=== PATIENT | female | born 1960 | race Caucasian/White ===

== ENCOUNTER 2020-07-28 14:39 | Outpatient (REF) | payer MEDICAID, SELFPAY ==
[2020-07-28 14:58] LABS: COVID-19 Test Negative (Negative)
== END 2020-07-28 14:40 | disposition home or self-care (01) ==
LOC: HO.LAB 14:39
PROVIDERS: Visit Provider Internal Medicine
DX: Z20.822 Contact with and (suspected) exposure to COVID-19 (principal)
CPT/HCPCS: 36415; 87635; C9803

== ENCOUNTER 2020-10-05 12:56 | Outpatient (REF) | payer MEDICAID, SELFPAY ==
--- NOTE | ~2020-10-05 | MM_ITS ---
EXAMINATION: MM SCREENING DIGITAL BREAST TOMOSYNTHESIS, BILATERAL CLINICAL INFORMATION: Screening. Asymptomatic. No known family history breast cancer. The lifetime risk of breast cancer based on the Tyrer-Cuzick Model is 6%. COMPARISON: Mammography: 01/29/2006 TECHNIQUE: Digital breast tomosynthesis is performed in both the craniocaudal and mediolateral oblique views along with computer-aided detection (CAD). Synthesized 2D images are generated from the tomosynthesis. Additional left MLO view is provided. FINDINGS: There are scattered areas of fibroglandular density (ACR BI-RADS breast composition Category b). There are no significant masses, abnormal calcifications, or other abnormalities. The axilla and skin contours are unremarkable. Bilateral vascular calcifications. MM/MM tomosynthesis screening BI IMPRESSION: No mammographic evidence of malignancy. ASSESSMENT: BI-RADS 2: Benign RECOMMENDATION: Routine annual mammography screening. This patient's information was entered into a reminder system with a target due date for their next mammogram.
== END 2020-10-05 12:57 | disposition home or self-care (01) ==
LOC: HO.MAMMO 12:56
PROVIDERS: Visit Provider Internal Medicine
DX: Z12.31 Encounter for screening mammogram for malignant neoplasm of breast (principal)
CPT/HCPCS: 77063; 77067

== ENCOUNTER 2022-01-02 10:21 | Emergency (ER) | payer MEDICAID, SELFPAY ==
[2022-01-02 10:28] VITALS: BP 113/62; BP 139/108; PULSE 85; RESP 18; TEMP 36.9; O2SAT 98; BMI 19.1
--- NOTE | 2022-01-02 12:48 | ED_ITS ---
HPI - Altered Mental Status General Chief Complaint: Altered Mental Status <Oumar Trujillo MD - Last Filed: 01/02/22 15:38> Stated Complaint: AMS <Oumar Trujillo MD - Last Filed: 01/02/22 15:38> Time Seen by Provider: 01/02/22 10:34 <Oumar Trujillo MD - Last Filed: 01/02/22 15:38> Source: family and old records reviewed <Oumar Trujillo MD - Last Filed: 01/02/22 15:38> Mode of arrival: ambulatory <Oumar Trujillo MD - Last Filed: 01/02/22 15:38> Limitations: altered mental status <Oumar Trujillo MD - Last Filed: 01/02/22 15:38> History of Present Illness HPI narrative: 61-year-old female with a past medical history of dementia. Comes to the emergency department today with daughter due to increasing levels of agitation. Daughter states that she was at her day program and was brought here after they called her, stating increased levels of agitation. Daughter states that she is trying to get her into a ?facility?, but has not been able to do so yet. Daughter states that her mental status and actions today are not different than normal, but have been escalating over the past several weeks. HPI, review of systems, and physical exam may be limited secondary to the patient's altered mental status <Oumar Trujillo MD - Last Filed: 01/02/22 15:38> MD complaint: altered mental status and confusion <Oumar Trujillo MD - Last Filed: 01/02/22 15:38> Onset (ago): week(s) <Oumar Trujillo MD - Last Filed: 01/02/22 15:38> Timing confirmed by: family member <Oumar Trujillo MD - Last Filed: 01/02/22 15:38> Severity: severe <Oumar Trujillo MD - Last Filed: 01/02/22 15:38> Consistency of symptoms: getting Worse <Oumar Trujillo MD - Last Filed: 01/02/22 15:38> Context: other (Dementia) <Oumar Trujillo MD - Last Filed: 01/02/22 15:38> Associated symptoms: foul smelling urine <Oumar Trujillo MD - Last Filed: 01/02/22 15:38> Related Data Home Medications: Home Medications Medication Instructions Recorded Confirmed amlodipine 10 mg tablet 1 tab PO QAM 01/03/22 01/03/22 cyanocobalamin (vitamin B-12) 100 1 tab PO QAM 01/03/22 01/03/22 mcg tablet divalproex 250 mg tablet,delayed 1 tab PO BID 01/03/22 01/03/22 release docusate sodium 100 mg capsule 1 cap PO BID 01/03/22 01/03/22 risperidone 0.5 mg tablet 1 tab PO BID 01/03/22 01/03/22 <Oumar Trujillo MD - Last Filed: 01/02/22 15:38> Allergies/Adverse Reactions: Allergies Allergy/AdvReac Type Severity Reaction Status Date / Time aspirin [ASA] Allergy Intermediate HIVES Unverified 12/10/19 16:37 penicillin G Allergy Unknown rash Verified 04/01/19 00:00 penicillin V Allergy Unknown rash Verified 11/10/14 00:00 Penicillins Allergy Unknown RASH Unverified 12/10/19 16:37 <Oumar Trujillo MD - Last Filed: 01/02/22 15:38> Review of Systems Review of Systems: Yes Unobtainable due to mental condition and Unobtainable due to mental status <Oumar Trujillo MD - Last Filed: 01/02/22 15:38> Neurologic: Reports confusion <Oumar Trujillo MD - Last Filed: 01/02/22 15:38> Psychiatric: Psychiatric: Reports confusion <Oumar Trujillo MD - Last Filed: 01/02/22 15:38> [facility] Past Medical History [facility] Narrative: Daughter states history of dementia, no other significant past medical history <Oumar Trujillo MD - Last Filed: 01/02/22 15:38> Source: old records reviewed and obtained from family <Oumar Trujillo MD - Last Filed: 01/02/22 15:38> Social History Social History: Social History Advance Directives: Yes Advance Directives on File: Yes Advance Directives Date on File: 01/03/22 <Oumar Trujillo MD - Last Filed: 01/02/22 15:38> Physical Exam ED Vital Signs: Vital Signs - 24 hr 01/05/22 10:56 01/05/22 21:19 01/05/22 23:26 Temperature 97.8 F Pulse Rate 62 106 H Respiratory Rate 16 14 Blood Pressure 136/70 133/64 73/49 L Pulse Oximetry 99 100 Oxygen Delivery Method Room Air Room Air 01/05/22 23:32 01/05/22 23:37 01/06/22 01:14 Temperature Pulse Rate 81 79 73 Respiratory Rate 14 14 12 Blood Pressure 95/59 L 97/61 107/56 L Pulse Oximetry 98 99 99 Oxygen Delivery Method Room Air Room Air Room Air 01/06/22 02:24 01/06/22 03:16 01/06/22 05:21 Temperature 97.0 F Pulse Rate 79 75 90 Respiratory Rate 12 14 Blood Pressure 133/58 L 136/63 122/71 Pulse Oximetry 98 100 Oxygen Delivery Method Room Air Room Air 01/06/22 08:22 Temperature 97.2 F Pulse Rate 56 Respiratory Rate 13 Blood Pressure 103/68 Pulse Oximetry 97 Oxygen Delivery Method Room Air BMI result Body Mass Index 19.1 <Oumar Trujillo MD - Last Filed: 01/02/22 15:38> Vital Signs - 24 hr 01/05/22 10:56 01/05/22 21:19 01/05/22 23:26 Temperature 97.8 F Pulse Rate 62 106 H Respiratory Rate 16 14 Blood Pressure 136/70 133/64 73/49 L Pulse Oximetry 99 100 Oxygen Delivery Method Room Air Room Air 01/05/22 23:32 01/05/22 23:37 01/06/22 01:14 Temperature Pulse Rate 81 79 73 Respiratory Rate 14 14 12 Blood Pressure 95/59 L 97/61 107/56 L Pulse Oximetry 98 99 99 Oxygen Delivery Method Room Air Room Air Room Air 01/06/22 02:24 01/06/22 03:16 01/06/22 05:21 Temperature 97.0 F Pulse Rate 79 75 90 Respiratory Rate 12 14 Blood Pressure 133/58 L 136/63 122/71 Pulse Oximetry 98 100 Oxygen Delivery Method Room Air Room Air 01/06/22 08:22 Temperature 97.2 F Pulse Rate 56 Respiratory Rate 13 Blood Pressure 103/68 Pulse Oximetry 97 Oxygen Delivery Method Room Air BMI result Body Mass Index 19.1 <NIKHIL Hodges - Last Filed: 01/03/22 09:22> Vital Signs - 24 hr 01/05/22 10:56 01/05/22 21:19 01/05/22 23:26 Temperature 97.8 F Pulse Rate 62 106 H Respiratory Rate 16 14 Blood Pressure 136/70 133/64 73/49 L Pulse Oximetry 99 100 Oxygen Delivery Method Room Air Room Air 01/05/22 23:32 01/05/22 23:37 01/06/22 01:14 Temperature Pulse Rate 81 79 73 Respiratory Rate 14 14 12 Blood Pressure 95/59 L 97/61 107/56 L Pulse Oximetry 98 99 99 Oxygen Delivery Method Room Air Room Air Room Air 01/06/22 02:24 01/06/22 03:16 01/06/22 05:21 Temperature 97.0 F Pulse Rate 79 75 90 Respiratory Rate 12 14 Blood Pressure 133/58 L 136/63 122/71 Pulse Oximetry 98 100 Oxygen Delivery Method Room Air Room Air 01/06/22 08:22 Temperature 97.2 F Pulse Rate 56 Respiratory Rate 13 Blood Pressure 103/68 Pulse Oximetry 97 Oxygen Delivery Method Room Air BMI result Body Mass Index 19.1 <NIKHIL Boyer - Last Filed: 01/05/22 18:26> Vital Signs - 24 hr 01/05/22 10:56 01/05/22 21:19 01/05/22 23:26 Temperature 97.8 F Pulse Rate 62 106 H Respiratory Rate 16 14 Blood Pressure 136/70 133/64 73/49 L Pulse Oximetry 99 100 Oxygen Delivery Method Room Air Room Air 01/05/22 23:32 01/05/22 23:37 01/06/22 01:14 Temperature Pulse Rate 81 79 73 Respiratory Rate 14 14 12 Blood Pressure 95/59 L 97/61 107/56 L Pulse Oximetry 98 99 99 Oxygen Delivery Method Room Air Room Air Room Air 01/06/22 02:24 01/06/22 03:16 01/06/22 05:21 Temperature 97.0 F Pulse Rate 79 75 90 Respiratory Rate 12 14 Blood Pressure 133/58 L 136/63 122/71 Pulse Oximetry 98 100 Oxygen Delivery Method Room Air Room Air 01/06/22 08:22 Temperature 97.2 F Pulse Rate 56 Respiratory Rate 13 Blood Pressure 103/68 Pulse Oximetry 97 Oxygen Delivery Method Room Air BMI result Body Mass Index 19.1 <NIKHIL Rosado - Last Filed: 01/06/22 09:15> Const General: combative and confusion <Oumar Trujillo MD - Last Filed: 01/02/22 15:38> Nutritional Appearance: underweight <Oumar Trujillo MD - Last Filed: 01/02/22 15:38> Orientation/consciousness: confusion <Oumar Trujillo MD - Last Filed: 01/02/22 15:38> HENMT Head: Yes normal to inspection, Yes normocephalic and Yes atraumatic <Oumar Trujillo MD - Last Filed: 01/02/22 15:38> Ears: hearing grossly normal bilaterally <Oumar Trujillo MD - Last Filed: 01/02/22 15:38> General nose exam: Normal external nose present <Oumar Trujillo MD - Last Filed: 01/02/22 15:38> Face and sinus: Yes normal facial exam <Oumar Trujillo MD - Last Filed: 01/02/22 15:38> Mouth: Normal oral and palatal mucosa present <Oumar Trujillo MD - Last Filed: 01/02/22 15:38> Eyes Conjunctivae: conjunctivae normal <Oumar Trujillo MD - Last Filed: 01/02/22 15:38> Sclerae: sclerae normal <Oumar Trujillo MD - Last Filed: 01/02/22 15:38> Neck Neck: Yes normal visual inspection and Yes full ROM <Oumar Trujillo MD - Last Filed: 01/02/22 15:38> Resp Other: Unable to evaluate sufficiently because of agitation <Oumar Trujillo MD - Last Filed: 01/02/22 15:38> Effort & Inspection: normal respiratory effort, no cough and no stridor <Oumar Trujillo MD - Last Filed: 01/02/22 15:38> Cardio Other: Unable to evaluate sufficiently because of agitation <Oumar Trujillo MD - Last Filed: 01/02/22 15:38> Rate: regular rate <Oumar Trujillo MD - Last Filed: 01/02/22 15:38> Back/Spine/Pelvis Cervical Spine: cervical ROM normal <Oumar Trujillo MD - Last Filed: 01/02/22 15:38> Thoracic/Lumbar Spine: thoracic and lumbar spine normal to inspection <Oumar Trujillo MD - Last Filed: 01/02/22 15:38> Skin General skin exam: no rashes or lesions noted and dry skin <Oumar Trujillo MD - Last Filed: 01/02/22 15:38> Neuro General: confusion <Oumar Trujillo MD - Last Filed: 01/02/22 15:38> Extrem General: Yes normal to inspection <Oumar Trujillo MD - Last Filed: 01/02/22 15:38> Psych Appearance: grossly normal <Oumar Trujillo MD - Last Filed: 01/02/22 15:38> Mental Status: other <Oumar Trujillo MD - Last Filed: 01/02/22 15:38> Speech and movement: Psychomotor agitation in speech present; No Restless speech present <Oumar Trujillo MD - Last Filed: 01/02/22 15:38> Course Reevaluation(s) Reevaluation #1: Patient was given some IM Zyprexa to help with agitation, which seems to now have improved. <Oumar Trujillo MD - Last Filed: 01/02/22 15:38> Time: 15:32 <Oumar Trujillo MD - Last Filed: 01/02/22 15:38> Reevaluation #2: 01/03/2022921 Patient currently awaiting CM placement. Unable to obtain urine sample still. <NIKHIL Hodges - Last Filed: 01/03/22 09:22> Reevaluation #3: Physician observation continued. Patient stable. Patient vital signs stable <NIKHIL Boyer - Last Filed: 01/05/22 18:26> Time: 18:26 <NIKHIL Boyer - Last Filed: 01/05/22 18:26> Additional Reevaluation(s): 01/06/22--15--physician observation continued. Vital signs stable, no complaints overnight. Labs reviewed. Patient currently with UTI on Ceftin. Pending case management placement <NIKHIL Rosado - Last Filed: 01/06/22 09:15> MDM - Altered Mental Status MDM Narrative Medical decision making narrative: 61-year-old female with a past medical history of dementia presents with daughter with progressively worsening symptoms. Daughter states over the past several weeks things have become worse. There does not seem to be in acute trigger. Patient's vital signs are normal. unable to obtain urine specimen at this time. Will obtain Case Management evaluation to assist the family with p lacement, which seems to be the main issue today. <Oumar Trujillo MD - Last Filed: 01/02/22 15:38> Differential Diagnosis Differential diagnosis: Likely altered mental status and dementia <Oumar Trujillo MD - Last Filed: 01/02/22 15:38> Lab Data Result diagrams: : 01/03/22 10:03 01/03/22 10:03 <Oumar Trujillo MD - Last Filed: 01/02/22 15:38> Labs: Lab Results 01/03/22 01/03/22 01/03/22 Range/Units 09:13 10:03 10:03 WBC 4.9 (4.8-10.8) X10*3/uL RBC 3.83 L (4.20-5.50) X10*6/uL Hgb 11.6 L (12.0-16.0) g/dl Hct 34.2 L (37.0-47.0) % MCV 89.3 (80.0-98.0) fL MCH 30.3 (27.0-33.0) pg MCHC 33.9 (31.0-35.0) g/dl RDW 12.7 (11.0-16.0) % Plt Count 121 L (160-400) X10*3/uL MPV 10.9 (9.4-12.3) fL Immature Gran % (Auto) 0.2 (0.0-0.4) % Neut % (Auto) 66.8 (45-73) % Lymph % (Auto) 21.3 (20-40) % [place] % (Auto) 10.7 (2-11) % Eos % (Auto) 0.6 (0-4) % Baso % (Auto) 0.4 (0-2) % Lymph # (Auto) 1.1 L (1.2-4.9) X10*3/uL [place] # (Auto) 0.5 (0.1-1.2) X10*3/uL Eos # (Auto) 0.0 (0.0-0.4) X10*3/uL Baso # (Auto) 0.0 (0.0-0.2) X10*3/uL Abs Immat Gran (auto) 0.01 (0.00-0.03) X10*3/uL Absolute Neuts (auto) 3.3 (2.0-8.3) x10*3/uL Absolute Nucleated RBC 0.000 (0.0-0.012) X10*3/uL Nucleated RBC % (auto) 0.0 (0.0-0.2) /100WBC Sodium 144 (135-145) mmol/L Potassium 3.7 (3.3-5.1) mmol/L Chloride 109 H (96-108) mmol/L Carbon Dioxide 24 (22-29) mmol/L Anion Gap 15 (12-20) BUN 21 H (9-16) mg/dL Creatinine 0.67 (0.5-1.4) mg/dL Estim Creat Clear Calc 59.2 Estimated GFR > 60 Random Glucose 97 (60-115) mg/dL Calcium 9.2 (8.4-10.2) mg/dL Magnesium 1.8 (1.6-2.6) mg/dL Total Bilirubin 1.0 (0.0-1.0) mg/dL AST 31 (5-31) U/L ALT 21 (0-31) U/L Alkaline Phosphatase 63 (39-117) U/L Total Protein 5.7 L (6.5-8.0) g/dL Albumin 3.6 (3.5-5.0) g/dL Urine Color Urine Appearance Urine pH (5.0-9.0) Ur Specific [place] (1.005-1.025) Urine Protein (Neg-Trace) mg/dL Urine Glucose (UA) (Negative) mg/dL Urine Ketones (Negative) mg/dL Urine Blood (Negative) Urine Nitrite (Negative) Ur Leukocyte Esterase (Negative) Urine RBC (0-2) /HPF Urine WBC (0-5) /HPF Ur Squamous Epith Cells (0-2) /HPF Urine Bacteria (None Seen) Hyaline Casts (0-2) /LPF Granular Casts COVID-19 (TEJAL) Negative (Negative) COVID-19 Clin Com See Note 01/04/22 Range/Units 17:34 WBC (4.8-10.8) X10*3/uL RBC (4.20-5.50) X10*6/uL Hgb (12.0-16.0) g/dl Hct (37.0-47.0) % MCV (80.0-98.0) fL MCH (27.0-33.0) pg MCHC (31.0-35.0) g/dl RDW (11.0-16.0) % Plt Count (160-400) X10*3/uL MPV (9.4-12.3) fL Immature Gran % (Auto) (0.0-0.4) % Neut % (Auto) (45-73) % Lymph % (Auto) (20-40) % [place] % (Auto) (2-11) % Eos % (Auto) (0-4) % Baso % (Auto) (0-2) % Lymph # (Auto) (1.2-4.9) X10*3/uL [place] # (Auto) (0.1-1.2) X10*3/uL Eos # (Auto) (0.0-0.4) X10*3/uL Baso # (Auto) (0.0-0.2) X10*3/uL Abs Immat Gran (auto) (0.00-0.03) X10*3/uL Absolute Neuts (auto) (2.0-8.3) x10*3/uL Absolute Nucleated RBC (0.0-0.012) X10*3/uL Nucleated RBC % (auto) (0.0-0.2) /100WBC Sodium (135-145) mmol/L Potassium (3.3-5.1) mmol/L Chloride (96-108) mmol/L Carbon Dioxide (22-29) mmol/L Anion Gap (12-20) BUN (9-16) mg/dL Creatinine (0.5-1.4) mg/dL Estim Creat Clear Calc Estimated GFR Random Glucose (60-115) mg/dL Calcium (8.4-10.2) mg/dL Magnesium (1.6-2.6) mg/dL Total Bilirubin (0.0-1.0) mg/dL AST (5-31) U/L ALT (0-31) U/L Alkaline Phosphatase (39-117) U/L Total Protein (6.5-8.0) g/dL Albumin (3.5-5.0) g/dL Urine Color ORANGE Urine Appearance Clear Urine pH 5.5 (5.0-9.0) Ur Specific [place] 1.025 (1.005-1.025) Urine Protein 30 (1+) H (Neg-Trace) mg/dL Urine Glucose (UA) Negative (Negative) mg/dL Urine Ketones 40 (Negative) mg/dL Urine Blood Negative (Negative) Urine Nitrite Positive H (Negative) Ur Leukocyte Esterase Trace H (Negative) Urine RBC 0-2 (0-2) /HPF Urine WBC 6-10 H (0-5) /HPF Ur Squamous Epith Cells 0-2 (0-2) /HPF Urine Bacteria 3+ (None Seen) Hyaline Casts 0-2 (0-2) /LPF Granular Casts Present COVID-19 (TEJAL) (Negative) COVID-19 Clin Com <Oumar Trujillo MD - Last Filed: 01/02/22 15:38> Lab Results 01/03/22 01/03/22 01/03/22 Range/Units 09:13 10:03 10:03 WBC 4.9 (4.8-10.8) X10*3/uL RBC 3.83 L (4.20-5.50) X10*6/uL Hgb 11.6 L (12.0-16.0) g/dl Hct 34.2 L (37.0-47.0) % MCV 89.3 (80.0-98.0) fL MCH 30.3 (27.0-33.0) pg MCHC 33.9 (31.0-35.0) g/dl RDW 12.7 (11.0-16.0) % Plt Count 121 L (160-400) X10*3/uL MPV 10.9 (9.4-12.3) fL Immature Gran % (Auto) 0.2 (0.0-0.4) % Neut % (Auto) 66.8 (45-73) % Lymph % (Auto) 21.3 (20-40) % [place] % (Auto) 10.7 (2-11) % Eos % (Auto) 0.6 (0-4) % Baso % (Auto) 0.4 (0-2) % Lymph # (Auto) 1.1 L (1.2-4.9) X10*3/uL [place] # (Auto) 0.5 (0.1-1.2) X10*3/uL Eos # (Auto) 0.0 (0.0-0.4) X10*3/uL Baso # (Auto) 0.0 (0.0-0.2) X10*3/uL Abs Immat Gran (auto) 0.01 (0.00-0.03) X10*3/uL Absolute Neuts (auto) 3.3 (2.0-8.3) x10*3/uL Absolute Nucleated RBC 0.000 (0.0-0.012) X10*3/uL Nucleated RBC % (auto) 0.0 (0.0-0.2) /100WBC Sodium 144 (135-145) mmol/L Potassium 3.7 (3.3-5.1) mmol/L Chloride 109 H (96-108) mmol/L Carbon Dioxide 24 (22-29) mmol/L Anion Gap 15 (12-20) BUN 21 H (9-16) mg/dL Creatinine 0.67 (0.5-1.4) mg/dL Estim Creat Clear Calc 59.2 Estimated GFR > 60 Random Glucose 97 (60-115) mg/dL Calcium 9.2 (8.4-10.2) mg/dL Magnesium 1.8 (1.6-2.6) mg/dL Total Bilirubin 1.0 (0.0-1.0) mg/dL AST 31 (5-31) U/L ALT 21 (0-31) U/L Alkaline Phosphatase 63 (39-117) U/L Total Protein 5.7 L (6.5-8.0) g/dL Albumin 3.6 (3.5-5.0) g/dL Urine Color Urine Appearance Urine pH (5.0-9.0) Ur Specific [place] (1.005-1.025) Urine Protein (Neg-Trace) mg/dL Urine Glucose (UA) (Negative) mg/dL Urine Ketones (Negative) mg/dL Urine Blood (Negative) Urine Nitrite (Negative) Ur Leukocyte Esterase (Negative) Urine RBC (0-2) /HPF Urine WBC (0-5) /HPF Ur Squamous Epith Cells (0-2) /HPF Urine Bacteria (None Seen) Hyaline Casts (0-2) /LPF Granular Casts COVID-19 (TEJAL) Negative (Negative) COVID-19 Clin Com See Note 01/04/22 Range/Units 17:34 WBC (4.8-10.8) X10*3/uL RBC (4.20-5.50) X10*6/uL Hgb (12.0-16.0) g/dl Hct (37.0-47.0) % MCV (80.0-98.0) fL MCH (27.0-33.0) pg MCHC (31.0-35.0) g/dl RDW (11.0-16.0) % Plt Count (160-400) X10*3/uL MPV (9.4-12.3) fL Immature Gran % (Auto) (0.0-0.4) % Neut % (Auto) (45-73) % Lymph % (Auto) (20-40) % [place] % (Auto) (2-11) % Eos % (Auto) (0-4) % Baso % (Auto) (0-2) % Lymph # (Auto) (1.2-4.9) X10*3/uL [place] # (Auto) (0.1-1.2) X10*3/uL Eos # (Auto) (0.0-0.4) X10*3/uL Baso # (Auto) (0.0-0.2) X10*3/uL Abs Immat Gran (auto) (0.00-0.03) X10*3/uL Absolute Neuts (auto) (2.0-8.3) x10*3/uL Absolute Nucleated RBC (0.0-0.012) X10*3/uL Nucleated RBC % (auto) (0.0-0.2) /100WBC Sodium (135-145) mmol/L Potassium (3.3-5.1) mmol/L Chloride (96-108) mmol/L Carbon Dioxide (22-29) mmol/L Anion Gap (12-20) BUN (9-16) mg/dL Creatinine (0.5-1.4) mg/dL Estim Creat Clear Calc Estimated GFR Random Glucose (60-115) mg/dL Calcium (8.4-10.2) mg/dL Magnesium (1.6-2.6) mg/dL Total Bilirubin (0.0-1.0) mg/dL AST (5-31) U/L ALT (0-31) U/L Alkaline Phosphatase (39-117) U/L Total Protein (6.5-8.0) g/dL Albumin (3.5-5.0) g/dL Urine Color ORANGE Urine Appearance Clear Urine pH 5.5 (5.0-9.0) Ur Specific [place] 1.025 (1.005-1.025) Urine Protein 30 (1+) H (Neg-Trace) mg/dL Urine Glucose (UA) Negative (Negative) mg/dL Urine Ketones 40 (Negative) mg/dL Urine Blood Negative (Negative) Urine Nitrite Positive H (Negative) Ur Leukocyte Esterase Trace H (Negative) Urine RBC 0-2 (0-2) /HPF Urine WBC 6-10 H (0-5) /HPF Ur Squamous Epith Cells 0-2 (0-2) /HPF Urine Bacteria 3+ (None Seen) Hyaline Casts 0-2 (0-2) /LPF Granular Casts Present COVID-19 (TEJAL) (Negative) COVID-19 Clin Com <NIKHIL Hodges - Last Filed: 01/03/22 09:22> Lab Results 01/03/22 01/03/22 01/03/22 Range/Units 09:13 10:03 10:03 WBC 4.9 (4.8-10.8) X10*3/uL RBC 3.83 L (4.20-5.50) X10*6/uL Hgb 11.6 L (12.0-16.0) g/dl Hct 34.2 L (37.0-47.0) % MCV 89.3 (80.0-98.0) fL MCH 30.3 (27.0-33.0) pg MCHC 33.9 (31.0-35.0) g/dl RDW 12.7 (11.0-16.0) % Plt Count 121 L (160-400) X10*3/uL MPV 10.9 (9.4-12.3) fL Immature Gran % (Auto) 0.2 (0.0-0.4) % Neut % (Auto) 66.8 (45-73) % Lymph % (Auto) 21.3 (20-40) % [place] % (Auto) 10.7 (2-11) % Eos % (Auto) 0.6 (0-4) % Baso % (Auto) 0.4 (0-2) % Lymph # (Auto) 1.1 L (1.2-4.9) X10*3/uL [place] # (Auto) 0.5 (0.1-1.2) X10*3/uL Eos # (Auto) 0.0 (0.0-0.4) X10*3/uL Baso # (Auto) 0.0 (0.0-0.2) X10*3/uL Abs Immat Gran (auto) 0.01 (0.00-0.03) X10*3/uL Absolute Neuts (auto) 3.3 (2.0-8.3) x10*3/uL Absolute Nucleated RBC 0.000 (0.0-0.012) X10*3/uL Nucleated RBC % (auto) 0.0 (0.0-0.2) /100WBC Sodium 144 (135-145) mmol/L Potassium 3.7 (3.3-5.1) mmol/L Chloride 109 H (96-108) mmol/L Carbon Dioxide 24 (22-29) mmol/L Anion Gap 15 (12-20) BUN 21 H (9-16) mg/dL Creatinine 0.67 (0.5-1.4) mg/dL Estim Creat Clear Calc 59.2 Estimated GFR > 60 Random Glucose 97 (60-115) mg/dL Calcium 9.2 (8.4-10.2) mg/dL Magnesium 1.8 (1.6-2.6) mg/dL Total Bilirubin 1.0 (0.0-1.0) mg/dL AST 31 (5-31) U/L ALT 21 (0-31) U/L Alkaline Phosphatase 63 (39-117) U/L Total Protein 5.7 L (6.5-8.0) g/dL Albumin 3.6 (3.5-5.0) g/dL Urine Color Urine Appearance Urine pH (5.0-9.0) Ur Specific [place] (1.005-1.025) Urine Protein (Neg-Trace) mg/dL Urine Glucose (UA) (Negative) mg/dL Urine Ketones (Negative) mg/dL Urine Blood (Negative) Urine Nitrite (Negative) Ur Leukocyte Esterase (Negative) Urine RBC (0-2) /HPF Urine WBC (0-5) /HPF Ur Squamous Epith Cells (0-2) /HPF Urine Bacteria (None Seen) Hyaline Casts (0-2) /LPF Granular Casts COVID-19 (TEJAL) Negative (Negative) COVID-19 Clin Com See Note 01/04/22 Range/Units 17:34 WBC (4.8-10.8) X10*3/uL RBC (4.20-5.50) X10*6/uL Hgb (12.0-16.0) g/dl Hct (37.0-47.0) % MCV (80.0-98.0) fL MCH (27.0-33.0) pg MCHC (31.0-35.0) g/dl RDW (11.0-16.0) % Plt Count (160-400) X10*3/uL MPV (9.4-12.3) fL Immature Gran % (Auto) (0.0-0.4) % Neut % (Auto) (45-73) % Lymph % (Auto) (20-40) % [place] % (Auto) (2-11) % Eos % (Auto) (0-4) % Baso % (Auto) (0-2) % Lymph # (Auto) (1.2-4.9) X10*3/uL [place] # (Auto) (0.1-1.2) X10*3/uL Eos # (Auto) (0.0-0.4) X10*3/uL Baso # (Auto) (0.0-0.2) X10*3/uL Abs Immat Gran (auto) (0.00-0.03) X10*3/uL Absolute Neuts (auto) (2.0-8.3) x10*3/uL Absolute Nucleated RBC (0.0-0.012) X10*3/uL Nucleated RBC % (auto) (0.0-0.2) /100WBC Sodium (135-145) mmol/L Potassium (3.3-5.1) mmol/L Chloride (96-108) mmol/L Carbon Dioxide (22-29) mmol/L Anion Gap (12-20) BUN (9-16) mg/dL Creatinine (0.5-1.4) mg/dL Estim Creat Clear Calc Estimated GFR Random Glucose (60-115) mg/dL Calcium (8.4-10.2) mg/dL Magnesium (1.6-2.6) mg/dL Total Bilirubin (0.0-1.0) mg/dL AST (5-31) U/L ALT (0-31) U/L Alkaline Phosphatase (39-117) U/L Total Protein (6.5-8.0) g/dL Albumin (3.5-5.0) g/dL Urine Color ORANGE Urine Appearance Clear Urine pH 5.5 (5.0-9.0) Ur Specific [place] 1.025 (1.005-1.025) Urine Protein 30 (1+) H (Neg-Trace) mg/dL Urine Glucose (UA) Negative (Negative) mg/dL Urine Ketones 40 (Negative) mg/dL Urine Blood Negative (Negative) Urine Nitrite Positive H (Negative) Ur Leukocyte Esterase Trace H (Negative) Urine RBC 0-2 (0-2) /HPF Urine WBC 6-10 H (0-5) /HPF Ur Squamous Epith Cells 0-2 (0-2) /HPF Urine Bacteria 3+ (None Seen) Hyaline Casts 0-2 (0-2) /LPF Granular Casts Present COVID-19 (TEJAL) (Negative) COVID-19 Clin Com <NIKHIL Boyer - Last Filed: 01/05/22 18:26> Lab Results 01/03/22 01/03/22 01/03/22 Range/Units 09:13 10:03 10:03 WBC 4.9 (4.8-10.8) X10*3/uL RBC 3.83 L (4.20-5.50) X10*6/uL Hgb 11.6 L (12.0-16.0) g/dl Hct 34.2 L (37.0-47.0) % MCV 89.3 (80.0-98.0) fL MCH 30.3 (27.0-33.0) pg MCHC 33.9 (31.0-35.0) g/dl RDW 12.7 (11.0-16.0) % Plt Count 121 L (160-400) X10*3/uL MPV 10.9 (9.4-12.3) fL Immature Gran % (Auto) 0.2 (0.0-0.4) % Neut % (Auto) 66.8 (45-73) % Lymph % (Auto) 21.3 (20-40) % [place] % (Auto) 10.7 (2-11) % Eos % (Auto) 0.6 (0-4) % Baso % (Auto) 0.4 (0-2) % Lymph # (Auto) 1.1 L (1.2-4.9) X10*3/uL [place] # (Auto) 0.5 (0.1-1.2) X10*3/uL Eos # (Auto) 0.0 (0.0-0.4) X10*3/uL Baso # (Auto) 0.0 (0.0-0.2) X10*3/uL Abs Immat Gran (auto) 0.01 (0.00-0.03) X10*3/uL Absolute Neuts (auto) 3.3 (2.0-8.3) x10*3/uL Absolute Nucleated RBC 0.000 (0.0-0.012) X10*3/uL Nucleated RBC % (auto) 0.0 (0.0-0.2) /100WBC Sodium 144 (135-145) mmol/L Potassium 3.7 (3.3-5.1) mmol/L Chloride 109 H (96-108) mmol/L Carbon Dioxide 24 (22-29) mmol/L Anion Gap 15 (12-20) BUN 21 H (9-16) mg/dL Creatinine 0.67 (0.5-1.4) mg/dL Estim Creat Clear Calc 59.2 Estimated GFR > 60 Random Glucose 97 (60-115) mg/dL Calcium 9.2 (8.4-10.2) mg/dL Magnesium 1.8 (1.6-2.6) mg/dL Total Bilirubin 1.0 (0.0-1.0) mg/dL AST 31 (5-31) U/L ALT 21 (0-31) U/L Alkaline Phosphatase 63 (39-117) U/L Total Protein 5.7 L (6.5-8.0) g/dL Albumin 3.6 (3.5-5.0) g/dL Urine Color Urine Appearance Urine pH (5.0-9.0) Ur Specific [place] (1.005-1.025) Urine Protein (Neg-Trace) mg/dL Urine Glucose (UA) (Negative) mg/dL Urine Ketones (Negative) mg/dL Urine Blood (Negative) Urine Nitrite (Negative) Ur Leukocyte Esterase (Negative) Urine RBC (0-2) /HPF Urine WBC (0-5) /HPF Ur Squamous Epith Cells (0-2) /HPF Urine Bacteria (None Seen) Hyaline Casts (0-2) /LPF Granular Casts COVID-19 (TEJAL) Negative (Negative) COVID-19 Clin Com See Note 01/04/22 Range/Units 17:34 WBC (4.8-10.8) X10*3/uL RBC (4.20-5.50) X10*6/uL Hgb (12.0-16.0) g/dl Hct (37.0-47.0) % MCV (80.0-98.0) fL MCH (27.0-33.0) pg MCHC (31.0-35.0) g/dl RDW (11.0-16.0) % Plt Count (160-400) X10*3/uL MPV (9.4-12.3) fL Immature Gran % (Auto) (0.0-0.4) % Neut % (Auto) (45-73) % Lymph % (Auto) (20-40) % [place] % (Auto) (2-11) % Eos % (Auto) (0-4) % Baso % (Auto) (0-2) % Lymph # (Auto) (1.2-4.9) X10*3/uL [place] # (Auto) (0.1-1.2) X10*3/uL Eos # (Auto) (0.0-0.4) X10*3/uL Baso # (Auto) (0.0-0.2) X10*3/uL Abs Immat Gran (auto) (0.00-0.03) X10*3/uL Absolute Neuts (auto) (2.0-8.3) x10*3/uL Absolute Nucleated RBC (0.0-0.012) X10*3/uL Nucleated RBC % (auto) (0.0-0.2) /100WBC Sodium (135-145) mmol/L Potassium (3.3-5.1) mmol/L Chloride (96-108) mmol/L Carbon Dioxide (22-29) mmol/L Anion Gap (12-20) BUN (9-16) mg/dL Creatinine (0.5-1.4) mg/dL Estim Creat Clear Calc Estimated GFR Random Glucose (60-115) mg/dL Calcium (8.4-10.2) mg/dL Magnesium (1.6-2.6) mg/dL Total Bilirubin (0.0-1.0) mg/dL AST (5-31) U/L ALT (0-31) U/L Alkaline Phosphatase (39-117) U/L Total Protein (6.5-8.0) g/dL Albumin (3.5-5.0) g/dL Urine Color ORANGE Urine Appearance Clear Urine pH 5.5 (5.0-9.0) Ur Specific [place] 1.025 (1.005-1.025) Urine Protein 30 (1+) H (Neg-Trace) mg/dL Urine Glucose (UA) Negative (Negative) mg/dL Urine Ketones 40 (Negative) mg/dL Urine Blood Negative (Negative) Urine Nitrite Positive H (Negative) Ur Leukocyte Esterase Trace H (Negative) Urine RBC 0-2 (0-2) /HPF Urine WBC 6-10 H (0-5) /HPF Ur Squamous Epith Cells 0-2 (0-2) /HPF Urine Bacteria 3+ (None Seen) Hyaline Casts 0-2 (0-2) /LPF Granular Casts Present COVID-19 (TEJAL) (Negative) COVID-19 Clin Com <NIKHIL Rosado - Last Filed: 01/06/22 09:15> Discharge Plan Discharge Clinical Impression: Altered mental status, Dementia <Oumar Trujillo MD - Last Filed: 01/02/22 15:38> Instructions: Dementia (ED) <Oumar Trujillo MD - Last Filed: 01/02/22 15:38> Prescriptions: No Action cyanocobalamin (vitamin B-12) 100 mcg tablet 1 tab PO QAM divalproex 250 mg tablet,delayed release (DR/EC) 1 tab PO BID amlodipine 10 mg tablet 1 tab PO QAM docusate sodium 100 mg capsule 1 cap PO BID risperidone 0.5 mg tablet 1 tab PO BID <Oumar Trujillo MD - Last Filed: 01/02/22 15:38> Referrals: Janessa Zepeda MD [Primary Care Provider] - 1 Week <Oumar Trujillo MD - Last Filed: 01/02/22 15:38>
[2022-01-02] MEDS: OLANZapine 10 MG VIAL 2.5 MG IM (14:03)
[2022-01-02] MEDS: LORazepam 1 MG TABLET PO (19:22)
[2022-01-02] MEDS: diphenhydrAMINE HCL 50 MG/ML VIAL IM (20:44)
[2022-01-02] MEDS: Ziprasidone Mesylate 20 MG VIAL 10 MG IM (20:45)
--- NOTE | 2022-01-02 20:56 | PC.NURSE ---
Patient is restless, agitated, attempting to leave room, unable to redirect patient at this time. Geodon 10 mg IM and Benadryl IM administered per Dr. Lowery order. Patient noted to present with calm behavior, asked for the pillow, stated she would like to sleep after the injections. RR 18, even, unlabored, no s/s of distress noted. Patient refused vital signs check.
--- NOTE | 2022-01-02 21:55 | PC.NURSE ---
Patient is resting with her eyes closed, RR 16, no s/s of distress noted.
[2022-01-02 22:17] VITALS: RESP 18
[2022-01-03] VITALS (7 sets, daily range): BP systolic 119–120; BP diastolic 63–65; PULSE 48–73; RESP 14–24; TEMP 36.4; O2SAT 99–100
[2022-01-03 09:40] LABS: COVID-19 Test Negative (Negative)
--- NOTE | 2022-01-03 09:51 | PHA.MEDREC ---
Pharmacy Consult ? Medication Reconciliation Pharmacy has completed the medication reconciliation. Spoke to patients daughter Louise.
[2022-01-03 10:07] LABS: MANUAL DIFF FLAG NO
[2022-01-03 10:27] LABS: Alanine Aminotransferase 21 U/L (0-31); Albumin Level 3.6 g/dL (3.5-5.0); Alkaline Phosphatase 63 U/L (39-117); Anion Gap 15 (12-20); Aspartate Amino Transferase 31 U/L (5-31); Blood Urea Nitrogen 21 mg/dL (9-16); Calcium 9.2 mg/dL (8.4-10.2); Carbon Dioxide 24 mmol/L (22-29); Chloride 109 mmol/L (96-108); Creatinine Clr Calc Pharmacy 59.2; Estimated Glomerular Filt Rate > 60; Glucose Random 97 mg/dL (60-115); Magnesium 1.8 mg/dL (1.6-2.6); Potassium 3.7 mmol/L (3.3-5.1); Sodium 144 mmol/L (135-145); Total Protein 5.7 g/dL (6.5-8.0)
[2022-01-03 10:31] LABS: Basophils Percent Auto 0.4 % (0-2); Eosinophils Percent Auto 0.6 % (0-4); Hematocrit 34.2 % (37.0-47.0); Hemoglobin 11.6 g/dl (12.0-16.0); Imm Gran Abs Auto 0.01 X10*3/uL (0.00-0.03); Imm Gran Pct Auto 0.2 % (0.0-0.4); Lymphocytes Absolute Auto 1.1 X10*3/uL (1.2-4.9); Lymphocytes Percent Auto 21.3 % (20-40); Mean Corpuscular HGB Conc 33.9 g/dl (31.0-35.0); Mean Corpuscular Hemoglobin 30.3 pg (27.0-33.0); Mean Corpuscular Volume 89.3 fL (80.0-98.0); Mean Platelet Volume 10.9 fL (9.4-12.3); Monocytes Absolute Auto 0.5 X10*3/uL (0.1-1.2); Monocytes Percent Auto 10.7 % (2-11); Neutrophils Absolute Auto 3.3 x10*3/uL (2.0-8.3); Neutrophils Percent Auto 66.8 % (45-73); Platelet Count 121 X10*3/uL (160-400); Red Blood Count 3.83 X10*6/uL (4.20-5.50); Red Cell Distribution Width 12.7 % (11.0-16.0); White Blood Count 4.9 X10*3/uL (4.8-10.8)
--- NOTE | 2022-01-03 11:09 | PC.NURSE ---
Cleaned pt, changed gown and bedding. Swabbed for Covid. Collected blood samples.
--- NOTE | 2022-01-03 12:45 | MHC.CM.ED ---
Received case management consult overnight. Patient came to the ER due to AMS related to dementia. Work up is essentially negative. Phyiscal therpay eval completed. No skilled found. Spoke with patient's daughter/HCP, Louise, via telephone at [phone]. Patient has dementia. Patient goes to a day program. Patient has been experiencing increased confusion. Patient is not an elopement risk because she ambulates so slowly. PCP verified. Dr Sykes is patient's neurologist. Copy of HCP obtained from [facility]. Patient received 2 Moderna vaccines. Louise doesn't feel she can safely take care of her mother at this time. Referral broadcasted in [facility] within 20 miles of patient's home. Continue to monitor for d/c needs.
[2022-01-03] MEDS: OLANZapine 5 MG TABLET PO (15:46)
[2022-01-03] MEDS: diphenhydrAMINE HCL 25 MG TABLET 50 MG PO (19:01)
[2022-01-03] MEDS: Ziprasidone 20 MG CAPSULE PO (19:01)
--- NOTE | 2022-01-03 20:46 | PC.NURSE ---
All bed linens changed and patient is boosted/repositioned in stretcher. She punches/becomes aggressive during care, but is now resting comfortably against pillows. She ate some dinner (required it be fed to her). Sitter in place and safety maintained.
--- NOTE | 2022-01-03 23:59 | PC.NURSE ---
Patient incontinent of stool and urine. All bed linens changed, tom care provided, and patient boosted/repositioned. Sitter remains in place and safety maintained.
[2022-01-04] VITALS (7 sets, daily range): BP systolic 107–148; BP diastolic 42–75; PULSE 51–101; RESP 14–19; TEMP 36.5–37.3; O2SAT 93–99
--- NOTE | 2022-01-04 02:22 | PC.NURSE ---
PT SOILED AND BED LINEN SOILED. PT GIVEN PERICARE AND BED LINEN AND PAD CHANGED. BARRIER CREAM APPLIED TO PT BOTTOM. PT GIVEN WARM BLANKET AND CALL GRISSOM
--- NOTE | 2022-01-04 02:32 | PC.NURSE ---
PT CHECKED FOR INCONTINENCE . PT DRY. PT REPOSITIONED TO LEFT SIDE AND WARM BLANKET GIVEN
--- NOTE | 2022-01-04 05:39 | PC.NURSE ---
PT CHECKED FOR INCONTINENCE. PT DRY. PT REPOSITIONED TO HER BACK AND GIVEN WARM BLANKETS
--- NOTE | 2022-01-04 06:46 | PC.NURSE ---
PT SOILED . PERICARE GIVEN LINEN CHANGED AND PT GIVEN WARM BLANKET
[2022-01-04] MEDS: risperiDONE 0.5 MG TABLET PO ×2 (11:34→20:50)
[2022-01-04] MEDS: amLODIPine Besylate 10 MG TABLET PO (11:34)
[2022-01-04] MEDS: Divalproex Sodium 250 MG TABLET.DR PO ×2 (11:34→20:50)
--- NOTE | 2022-01-04 12:37 | MHC.CM.ED ---
Patient remains in the ER. No bed offers made at this time. [facility] might have a bed tomorrow, 01/05. Referral broadcasted within 40 miles of patient's home. Deonna's daughter, Louise, aware. Continue to monitor for d/c needs.
[2022-01-04 17:59] LABS: Appearance Urine Clear; Color Urine ORANGE; Glucose Urine UA Negative (Negative); Leukocyte Esterase Urine Trace (Negative); Nitrite Urine Positive (Negative); PH 5.5 (5.0-9.0); Specific Gravity - Urine 1.025 (1.005-1.025); UMIC TRIGGER UACC YES; Urine Blood Negative (Negative); Urine Ketones 40 mg/dL (Negative); Urine Protein 30 (1+) mg/dL (Neg-Trace)
[2022-01-04 18:12] LABS: Bacteria Urine 3+ (None Seen); Granular Casts Urine Present; Hyaline Casts Urine 0-2 /LPF (0-2); RBC Urine 0-2 /HPF (0-2); Squamous Epithelial Cell Urine 0-2 /HPF (0-2); UACC Culture Trigger YES
[2022-01-04] MEDS: LORazepam 1 MG TABLET 2 MG PO (19:35)
[2022-01-04] MEDS: Docusate Sodium 100 MG CAPSULE PO (20:50)
[2022-01-04] MEDS: OLANZapine 5 MG TABLET PO (20:50)
[2022-01-05 10:56] VITALS: BP 136/70; PULSE 62; RESP 16; O2SAT 99
--- NOTE | 2022-01-05 10:56 | PC.NURSE ---
Addendum entered by Enid Rodríguez 01/05/22 12:15: PO meds not given. Original Note: PT sleeping, spontaneously wakes up but falls back to sleep. PO . PT repositioned. VSS.
[2022-01-05] MEDS: risperiDONE 0.5 MG TABLET PO ×2 (11:58→21:10)
[2022-01-05] MEDS: Divalproex Sodium 250 MG TABLET.DR PO ×2 (11:59→21:10)
[2022-01-05] MEDS: Cyanocobalamin (Vitamin B-12) 100 MCG TABLET PO (12:02)
[2022-01-05] MEDS: Docusate Sodium 100 MG CAPSULE PO ×2 (12:02→21:10)
[2022-01-05] MEDS: amLODIPine Besylate 10 MG TABLET PO (12:02)
--- NOTE | 2022-01-05 12:16 | PC.NURSE ---
PO meds given as ordered.
[2022-01-05] MEDS: LORazepam 1 MG TABLET 2 MG PO (13:17)
--- NOTE | 2022-01-05 16:27 | PC.NURSE ---
This telegraphic typewriter repairer spoke to showcase trimmer Berna, PT may have bed in [facility] tomorrow.
--- NOTE | 2022-01-05 20:45 | PC.NURSE ---
pt incontinent of urine, cleaned and changed.
[2022-01-05 21:19] VITALS: BP 133/64; PULSE 106; RESP 14; TEMP 36.6; O2SAT 100
--- NOTE | 2022-01-05 21:25 | PC.NURSE ---
Pt alert, not oriented. Breaths are even and unlabored. RR 14. HR 106, BP 133/64. Abd soft and non tender. Skin warm, pink, dry. No apparent distress noted. Medications crushed and given with pudding. Pt able to swallow pudding with no issues or concerns. Will continue to monitor.
--- NOTE | 2022-01-05 21:56 | PC.NURSE ---
Pts daughter, Ruba Quiroz, called for an update. Daughter updated on plan of care.
[2022-01-05 23:26] VITALS: BP 73/49
[2022-01-05 23:32] VITALS: BP 95/59; PULSE 81; RESP 14; O2SAT 98
[2022-01-05 23:37] VITALS: BP 97/61; PULSE 79; RESP 14; O2SAT 99
--- NOTE | 2022-01-05 23:38 | PC.NURSE ---
pt hypotensive 70s/40s, woke pt up and bp increased, RN spoke w provider - pt bed put in slight trendelenburg per provider request w improved bp.
[2022-01-06] VITALS (7 sets, daily range): BP systolic 103–136; BP diastolic 56–76; PULSE 56–138; RESP 12–14; TEMP 36.1–36.9; O2SAT 97–100
--- NOTE | 2022-01-06 01:17 | PC.NURSE ---
Pt currently sleeping. Breaths are even and unlabored with equal chest rises. BP 107/56 HR 73. Pt continues to be on trendelenburg's position. Will continue to monitor. MLP aware.
--- NOTE | 2022-01-06 01:53 | PC.NURSE ---
22G Left wrist. 1L NS started per verbal provider order for pts hypotension.
[2022-01-06] MEDS: 0.9 % Sodium Chloride 1,000 ML 999 ML IV (01:55)
--- NOTE | 2022-01-06 03:09 | PC.NURSE ---
PT CHECKED FOR INCONTINENCE. PT DRY. PT REPOSITIONED TO HER LEFT SIDE. WARM BLANKET GIVEN.
--- NOTE | 2022-01-06 03:19 | PC.NURSE ---
Pt sleeping. Breaths are even and unlabored with equal chest rises. Pt continues to be in trendelenburg's position with improved BP. Current BP 127/61, HR: 77. aware. Will continue to monitor.
--- NOTE | 2022-01-06 06:10 | PC.NURSE ---
PT SOILED DUE TO NIGHTTIME INCONTINENCE. PT LINEN CHANGED AND KENNEDY CARE GIVEN. BARRIER CREAM APPLIED TO PT BOTTOM AND NEW PAD PUT UNDER PT. PT GIVEN WARM BLANKETS AND REPOSITIONED TO HER BACK
--- NOTE | 2022-01-06 10:41 | MHC.CM.ED ---
Patient remains in ER. No bed offers made yet. Patient's daughter/HCP, Louise aware. Referral broadcasted within 50 miles of patient's home. Continue to monitor for d/c needs.
[2022-01-06] MEDS: amLODIPine Besylate 10 MG TABLET PO (10:57)
[2022-01-06] MEDS: Docusate Sodium 100 MG CAPSULE PO ×2 (10:57→20:27)
[2022-01-06] MEDS: Divalproex Sodium 250 MG TABLET.DR PO ×2 (10:57→20:27)
[2022-01-06] MEDS: risperiDONE 0.5 MG TABLET PO ×2 (10:57→20:27)
--- NOTE | 2022-01-06 11:02 | PC.NURSE ---
patient is able to arouse . patient at baseline . wrapped IV in left hand , patient tolerated well . skin pink warm and dry . breathing equal and unlabored . patient took medication crushed in pudding this Am . resting comfortable . bed at lowest position . continues on CV monitoring . continue on bed search placement for plan of care for patient .
[2022-01-06] MEDS: Cyanocobalamin (Vitamin B-12) 100 MCG TABLET PO (12:16)
--- NOTE | 2022-01-06 12:47 | PC.NURSE ---
Daughter at bedside . Family aware of plan of care .
--- NOTE | 2022-01-06 23:47 | PC.NURSE ---
PT SOILED WITH URINE PERICARE GIVEN. PT LINEN CHANGED AND PAD CHANGED. BARRIER CREAM APPLIED TO PT BOTTOM. PT TRYING TO GET OUT OF BED AFTER PERICARE CALL GRISSOM PLACED WITHIN REACH AND RN NOTIFIED OF PT STATUS.
[2022-01-07 06:41] VITALS: BP 108/64; PULSE 75; RESP 16; TEMP 36.5; O2SAT 98
--- NOTE | 2022-01-07 06:49 | PC.NURSE ---
PT SOILED WITH URINE PT GIVEN KENNEDY CARE AND WARM BLANKET GIVEN CALL GRISSOM PLACED WITHIN REACH
[2022-01-07 09:24] VITALS: BP 115/76; PULSE 89; RESP 12
[2022-01-07] MEDS: Cyanocobalamin (Vitamin B-12) 100 MCG TABLET PO (09:30)
[2022-01-07] MEDS: risperiDONE 0.5 MG TABLET PO ×2 (09:30→19:59)
[2022-01-07] MEDS: Divalproex Sodium 250 MG TABLET.DR PO ×2 (09:30→19:59)
--- NOTE | 2022-01-07 09:31 | PC.NURSE ---
Provider instructed to hold BP med d/t BP
--- NOTE | 2022-01-07 13:07 | PC.NURSE ---
PT HAS BEEN PACING WITH STAFF FOR HOURS. SHE STOPS TO REST HER HEAD. SHE IS NOT REDIRECTABLE BACK TO BED. SPOKE WITH PROVIDER FOR MEDICATION TO ADDRESS BEHAVIOR
[2022-01-07] MEDS: OLANZapine 10 MG TABLET PO (13:16)
--- NOTE | 2022-01-07 16:41 | P.CNPS_ITS ---
History of Present Illness Date of Service: 01/07/2022 Chief Complaint: AMS Reason for Consult: med recommendations HPI Narrative: per 01/02 ED note: 61-year-old female with a past medical history of dementia.? Comes to the emergency department today with daughter due to increasing levels of agitation.? Daughter states that she was at her day program and was brought here after they called her, stating increased levels of agitation.? Daughter states that she is trying to get her into a ?facility?, but has not been able to do so yet.? D ebonychinmay states that her mental status and actions today are not different than normal, but have been escalating over the past several weeks. per 01/04 ED note addendum: Physician observation continues.? Patient is being followed by Case Management,? was evaluated by Physical therapy no skilled needs found, trying to facilitate placement in long-term care. Per nursing, no issues overnight reported.? review of records indicates no urinalysis has been obtained at this time, spoke with nursing staff regarding obtaining urine specimen straight catheterization if required.? Patient is unable to follow commands and provide urine sample.? Patient urinated? on the floor.? At this time, advised nursing staff will obtain bladder scan at this time if there is urine present will straight cath otherwise will repeat bladder scan in 2 hours after pushing fluids and when able to will straight cath.? The urine was very foul smelling I suspect urinary tract infection.? Would begin treatment with cefuroxime, will need urinalysis for confirmation. Vital signs stable. Will continue to monitor. per 01/07 ED note addendum: Physician observation continues.? Patient's blood pressure medications held this morning.? Urine culture grew E coli susceptible to Ceftin, will continue.? Case Management continues to follow-up for placement 01/07 Psych: pt seen in ED, 2 sons present. they provided collateral which supported the narrative above. pt was quite sedated and not rousable for more than a few seco nds. ED notes reviewed, as above. UTI noted, currently being treated. per sons' report, pt became agitated at day program and became aggressive, prompting the visit to the ED. Past Psychiatric History: dementia PMFSH Family History: deferred Social History: lives with daughter. who is her brush finisher. other children also in the area. Substance History: unknown Diagnostics Vital Signs (24Hr): Vital Signs - 24 hr 01/06/22 23:41 01/07/22 06:41 01/07/22 09:24 Temperature 97.6 F 97.7 F Pulse Rate 138 H 75 89 Respiratory Rate 14 16 12 Blood Pressure 121/76 108/64 115/76 Pulse Oximetry 98 98 Oxygen Delivery Method Room Air Room Air BMI result Body Mass Index 19.1 Labs Results: 01/03/22 10:03 01/03/22 10:03 Mental Status Exam Mental Status Exam Narrative: cachectic appearing woman sleeping in the left lateral decubitus position in ED bed Medications Medications Current Medications Amlodipine Besylate (Amlodipine Besylate 10 Mg Tablet) 10 mg PO DAILY [facility]; Protocol Last Admin: 01/07/22 09:30 Dose: Not Given Cefuroxime Axetil (Cefuroxime Axetil 250 Mg Tablet) 250 mg PO BID [facility] Last Admin: 01/07/22 09:30 Dose: 250 mg Cyanocobalamin (Cyanocobalamin (Vitamin B-12) 100 Mcg Tablet) 100 mcg PO DAILY [facility] Last Admin: 01/07/22 09:30 Dose: 100 mcg Divalproex Sodium (Divalproex Sodium 250 Mg Tablet.Dr) 250 mg PO BID [facility] Last Admin: 01/07/22 09:30 Dose: 250 mg Docusate Sodium (Docusate Sodium 100 Mg Capsule) 100 mg PO BID [facility] Last Admin: 01/07/22 09:41 Dose: Not Given Pharmacy Consult (Consult Rx Perform Med Rec) 1 each MISCELLANE ONCE PRN PRN Reason: Consult order Risperidone (Risperidone 0.5 Mg Tablet) 0.5 mg PO BID [facility] Last Admin: 01/07/22 09:30 Dose: 0.5 mg Allergies Allergies Allergy/AdvReac Type Severity Reaction Status Date / Time aspirin [ASA] Allergy Intermediate HIVES Unverified 12/10/19 16:37 penicillin G Allergy Unknown rash Verified 04/01/19 00:00 penicillin V Allergy Unknown rash Verified 11/10/14 00:00 Penicillins Allergy Unknown RASH Unverified 12/10/19 16:37 Assessment & Plan Assessment & Plan (1) UTI (urinary tract infection): Status: Acute Code(s): N39.0 - Urinary tract infection, site not specified (2) Dementia: Status: Acute Code(s): F03.90 - Unspecified dementia, unspecified severity, without behavioral disturbance, psychotic disturbance, mood disturbance, and anxiety (3) Delirium: Status: Acute Code(s): R41.0 - Disorientation, unspecified Plan likely delirium from UTI with underlying dementia. treat UTI without changing scheduled medications, allow some weeks to see if pt returns to baseline. may use extra doses of risperidone 0.5 and depakote 250 as needed for agitation during delirious period. I spent __45____ minutes with the patient and/or on the patient floor today, greater than?50% of which was spent counseling/coordinating care. Guardian/Caregiver educated on: diagnosis and therapeutic strategies
--- NOTE | 2022-01-07 18:04 | PC.NURSE ---
Could not get BP from patient due to them being restless. Linens changed with public works technician. Provider notified.
[2022-01-07 19:54] VITALS: BP 124/74; PULSE 106; RESP 18; O2SAT 100
[2022-01-07] MEDS: Docusate Sodium 100 MG CAPSULE PO (19:59)
[2022-01-08] MEDS: diphenhydrAMINE HCL 50 MG/ML VIAL 25 MG IVPUSH (00:07)
--- NOTE | 2022-01-08 01:57 | PC.NURSE ---
patient sleeping. chest rise and fall equal and unlabored. no signs of distress. will continue to monitor
--- NOTE | 2022-01-08 06:03 | PC.NURSE ---
incontinence care provided. patient given new hospital gown and fresh linen.
[2022-01-08 09:18] VITALS: BP 111/64; PULSE 84; RESP 20
--- NOTE | 2022-01-08 09:30 | PC.NURSE ---
PT sleeping. Po meds not given. Will reattempt. VSS.
--- NOTE | 2022-01-08 12:04 | MHC.CM.ED ---
PSYCH CONSULT SENT TO [facility] (CURRENTLY STILL FOLLOWING) OF THIS NOTE, NO BED OFFERS.
[2022-01-08] MEDS: amLODIPine Besylate 10 MG TABLET PO (12:33)
[2022-01-08] MEDS: risperiDONE 0.5 MG TABLET PO ×2 (12:34→21:27)
[2022-01-08] MEDS: Divalproex Sodium 250 MG TABLET.DR PO ×2 (12:36→21:27)
[2022-01-08] MEDS: Cyanocobalamin (Vitamin B-12) 100 MCG TABLET PO (12:37)
[2022-01-08] MEDS: Docusate Sodium 100 MG CAPSULE PO ×2 (12:38→21:27)
--- NOTE | 2022-01-08 12:45 | PC.NURSE ---
PO meds given as documented. PT ambulated,
[2022-01-08] MEDS: OLANZapine 5 MG TABLET PO ×2 (13:22→13:46)
[2022-01-08] MEDS: LORazepam 1 MG TABLET PO (14:30)
--- NOTE | 2022-01-08 18:00 | PC.NURSE ---
PT sleeping. Daughter at bedside, update on plan of care given.
[2022-01-09] MEDS: diphenhydrAMINE HCL 50 MG/ML VIAL IM (01:49)
[2022-01-09 09:38] VITALS: BP 121/81; PULSE 90; RESP 24
[2022-01-09] MEDS: Divalproex Sodium 250 MG TABLET.DR PO (09:46)
[2022-01-09] MEDS: amLODIPine Besylate 10 MG TABLET PO (09:47)
[2022-01-09] MEDS: risperiDONE 0.5 MG TABLET PO (09:47)
[2022-01-09] MEDS: Cyanocobalamin (Vitamin B-12) 100 MCG TABLET PO (09:47)
[2022-01-09] MEDS: Docusate Sodium 100 MG CAPSULE PO (09:47)
--- NOTE | 2022-01-09 10:05 | PC.NURSE ---
Pt sleeping but awakes with verbal stimuli. Disoriented, unable to state name despite speaking in [place]. Pt accepted meds in pudding and drank orange juice and water, a couple bites of banana but otherwise difficult to feed, pt not opening mouth and needs encouragement to eat. VSS. Warm blanket provided. Breathing unlabored, skin pwd.
--- NOTE | 2022-01-09 11:33 | MHC.CM.ED ---
Patient remains in ER. [facility] appears to be able to offer a bed today. PASRR Level 1 screening completed by T/W. No Level 2 is needed. MDS completed and faxed to [facility]. Both Level 1 and MDS faxed to Ana at [facility]. Spoke with patient's daughter/HCP, Louise. Louise doesn't feel [facility] would be a good fit for her mother. T/W explained referral has been sent out 40 miles. Referral would either need to be expanded further, the bed at [facility] needs to be accepted or the patient needs to return home. Louise will be in the ER shortly to discuss these options with T/W. Louise's brother, Sandeep, doesn't want patient to go to a facility. He feels he can safely take care of patient at his home. T/W explained to Louise that she is the HCP. Patient is unable to complete a new HCP due to advanced dementia. Sandeep would need to go to probate court to obtain a guardianship to change this. He would also need to prove that Louise is not acting in the best interest of the patient. This can cost $3000-$5000 for Sandeep. T/W attempted to speak with Sandeep via telephone at [phone]. Left voicemail requesting return telephone call. Continue to monitor for d/c needs.
--- NOTE | 2022-01-09 12:52 | PC.NURSE ---
Pt ambulatory around ED with this RN, unsteady and needs assist of one. Cleaned for urine incontinence and assisted into recliner, asleep at this time. Ruba (daughter) at bedside at this time
--- NOTE | 2022-01-09 15:22 | MHC.CM.ED ---
[facility] is the only facility that is able to offer a bed. Met and spoke with patient's daughter, Louise. Louise will take patient home. Louise COURTNEY and Kayla TEJEDA aware. Continue to monitor for d/c needs.
== END 2022-01-09 16:57 | disposition home or self-care (01) ==
PROVIDERS: Physician Assistant Medical; Emergency Provider Emergency Medicine; PCP Internal Medicine
DX: F03.93 Unspecified dementia, unspecified severity, with mood disturbance (principal); N39.0 Urinary tract infection, site not specified; F05 Delirium due to known physiological condition; F41.1 Generalized anxiety disorder; F43.0 Acute stress reaction; R41.82 Altered mental status, unspecified; H91.93 Unspecified hearing loss, bilateral; R26.2 Difficulty in walking, not elsewhere classified; Z20.822 Contact with and (suspected) exposure to COVID-19; Z79.899 Other long term (current) drug therapy
CPT/HCPCS: 36415; 51702; 51798; 80053; 81001; 83735; 85025; 87086; 87088; 87186; 87635; 96372; 96374; 97162; 99285; J1200; J3486; Q0163

== ENCOUNTER 2022-01-10 19:42 | Emergency (ER) | payer MEDICAID, SELFPAY ==
--- NOTE | ~2022-01-10 | XR_ITS ---
EXAMINATION: XR hip RT w PEL1V CLINICAL INFORMATION: Reason for Exam s/p fall off wheelchair COMPARISON: Hip and pelvis radiographs 01/10/2022 TECHNIQUE: Two views of the right hip and one view of the pelvis FINDINGS: No acute fracture or dislocation. Joint spaces are maintained without significant degenerative change. Large volume of desiccated stool in the visualized rectosigmoid colon. Surgical clip in the pelvis. XR/XR hip RT w PEL1V IMPRESSION: No acute osseous abnormality. Large volume of desiccated stool in the visualized rectosigmoid colon.
--- NOTE | ~2022-01-10 | CT_ITS ---
EXAMINATION: NONCONTRAST HEAD CT NONCONTRAST CERVICAL SPINE CT INDICATION INFORMATION: Head strike with acute mental status change status post fall COMPARISON: Head and cervical spine CT 02/04/2022 TECHNIQUE: Separate noncontrast CT examinations of the head and cervical spine were performed. Coronal and sagittal images were created for each examination at the technologist workstation. This CT examination was performed using dose optimization techniques as appropriate, variously including the following: *Automated exposure control *Adjustment of mA and/or kV according to patient size (this includes techniques or standardized protocols for targeted exams where dose is matched to indication/reason for exam; i.e. extremities or head) *Use of iterative reconstruction technique DLP: 866 mGy-cm FINDINGS: HEAD: No intra or extra-axial fluid collection, hemorrhage, or mass. No ventriculomegaly. No midline shift or herniation. Basal cisterns are patent. [place]-white matter differentiation is maintained. No territorial encephalomalacia. Proportional prominence of the ventricles and sulcal spaces is consistent with mild volume loss. Patchy periventricular and deep white matter hypoattenuation is consistent with mild small vessel ischemic changes. No calvarial fracture or soft tissue abnormality. The mastoid air cells and visualized portions of the paranasal sinuses are well aerated. CERVICAL SPINE: Alignment: Minimal anterolisthesis at C4-C5, unchanged and likely due to facet arthrosis. No additional subluxation. Vertebra: No acute fracture. No prevertebral soft tissue swelling. Degenerative disc disease: Moderate disc height loss with endplate sclerosis and proliferative change at C5-C6 and C6-C7. Milder disc degenerative changes at C3-C4, C4-C5, and C7-T1. Multilevel bilateral facet arthrosis and uncovertebral spurring. Other findings: No cervical lymphadenopathy. Visualized major salivary glands and thyroid gland are unremarkable. Visualized lung apices are clear. CT/CT cervical spine wo IV con IMPRESSION: 1. No intracranial hemorrhage or calvarial fracture. 2. No traumatic subluxation or acute cervical spine fracture.
--- NOTE | ~2022-01-10 | CT_ITS ---
EXAMINATION: CT cervical spine wo IV con, CT head/brain wo IV con INDICATION INFORMATION: Reason for Exam fall, hit head COMPARISON: None TECHNIQUE: Separate noncontrast CT examinations of the head and cervical spine were performed. Coronal and sagittal images were created for each examination at the technologist workstation. This CT examination was performed using dose optimization techniques as appropriate, variously including the following: *Automated exposure control *Adjustment of mA and/or kV according to patient size (this includes techniques or standardized protocols for targeted exams where dose is matched to indication/reason for exam; i.e. extremities or head) *Use of iterative reconstruction technique DLP: 1222 mGy-cm FINDINGS: Motion degraded examination. Head: No acute osseous or soft tissue abnormality. The mastoid air cells and visualized portions of the paranasal sinuses are well aerated. There is no evidence of acute intracranial hemorrhage or territorial infarction. No abnormal mass effect or midline shift is seen. [place] to white matter differentiation is well preserved. No extra-axial fluid collections are identified. No hydrocephalus. Proportional prominence of the ventricles and sulcal spaces is consistent with mild volume loss. Patchy periventricular and deep white matter hypoattenuation is consistent with mild small vessel ischemic changes. Cervical spine: There is no evidence of acute cervical spine fracture. Vertebral bodies remain normal in height. Reversal of usual cervical lordosis, cervical levocurvature, mild anterolisthesis of C4 and C5 on the basis of advanced facet disease on the left. Moderate multilevel cervical spondylosis.. No pre- or paravertebral soft tissue abnormality is identified. Visualized portions of the lung apices are unremarkable. Limited evaluation of the visualized soft tissues of the neck is unremarkable. CT/CT cervical spine wo IV con IMPRESSION: Motion degraded examination. Within the limitations of motion: 1. No acute intracranial abnormality. 2. No cervical spine fracture or traumatic malalignment.
--- NOTE | ~2022-01-10 | XR_ITS ---
EXAMINATION: XR HIP, RIGHT CLINICAL INFORMATION: Fall with pain COMPARISON: None TECHNIQUE: AP pelvis and 2 views of the right hip. FINDINGS: No acute fracture or dislocation. Bilateral hip joint spaces are maintained. Minimal acetabular rim osteophyte formation at both hips. Mild subchondral sclerosis and osteophytes the pubic symphysis. SI joints are congruent and intact. Large amount of stool seen in the rectum that obscures visualization of the sacrum. XR/XR hip RT w PEL1V IMPRESSION: 1. No acute fracture or dislocation identified. 2. Minimal bilateral hip joint osteoarthritis with preserved joint spaces.
--- NOTE | ~2022-01-10 | CT_ITS ---
EXAMINATION: CT OF THE HEAD WITHOUT CONTRAST CT OF THE CERVICAL SPINE WITHOUT CONTRAST CLINICAL INFORMATION: Fall. Head strike. Neck pain.. COMPARISON: CT scan of the head and cervical spine dated 01/10/2022.. TECHNIQUE: Contiguous axial imaging was performed from the skullbase to vertex without intravenous administration of contrast. Coronal reformations of the head were obtained. Contiguous axial imaging was then performed from the skull base down to the thoracic inlet. Coronal and sagittal reformations of the cervical spine were obtained. This CT examination was performed using dose optimization techniques as appropriate, variously including the following: *Automated exposure control *Adjustment of mA and/or kV according to patient size (this includes techniques or standardized protocols for targeted exams where dose is matched to indication/reason for exam; i.e. extremities or head) *Use of iterative reconstruction technique DLP: 1623.99 mGy-cm. FINDINGS: CT scan of the head: Evaluation is significantly limited due to motion artifact, despite obtaining repeat films. In this setting, significant findings may be missed. There is no obvious evidence of acute intracranial hemorrhage or territorial infarction. No abnormal mass-effect or midline shift is seen. [place] to white matter differentiation is well preserved. No extra-axial fluid collections are identified. The ventricles and sulci are mildly enlarged. Mild to moderate periventricular and deep white matter low-attenuation is seen, consistent with ischemic small vessel disease. The osseous structures and soft tissues are normal. The mastoid air cells and visualized portions of the paranasal sinuses are well-aerated. CT scan of the cervical spine: Evaluation is significantly limited due to motion artifact. In this setting, significant findings may be missed. Again noted is grade 1 anterolisthesis of C4 on C5, presumably related to ligamentous laxity. Alignment is otherwise maintained. No evidence of acute fracture or dislocation. Craniocervical junction and atlantoaxial articulations are intact. Prevertebral soft tissues are normal in thickness. There is severe degenerative disc disease at C5-C6, C6-C7 with disc space narrowing and vertebral endplate spurring and sclerosis seen. Severe facet arthropathy is seen at the left C4-C5, C5-C6 and C6-C7 levels. The included soft tissues of the neck and lung apices are suboptimally assessed due to motion artifact and lack of intravenous contrast, but grossly unremarkable. CT/CT cervical spine wo IV con IMPRESSION: HEAD: 1. Significantly limited exam due to motion artifact. In this setting, significant findings may be missed. 2. No definite acute intracranial pathology. 3. Mild to moderate ischemic microangiopathy. CERVICAL SPINE: 1. No evidence of cervical spine fracture or malalignment. 2. Grade 1 anterolisthesis of C4 on C5 is seen, likely related to ligamentous laxity, unchanged from recent prior exam. 3. Multilevel degenerative disc disease and facet arthropathy in the cervical spine.
--- NOTE | ~2022-01-10 | XR_ITS ---
EXAMINATION: XR CHEST CLINICAL INFORMATION: Fall. COMPARISON: Chest x-ray 04/04/2019 TECHNIQUE: Frontal portable view of the chest was obtained. 6:30 PM FINDINGS: Lungs are clear. No pulmonary vascular congestion. There is no pleural effusion. The heart size is normal. The cardiac and mediastinal contours are normal. There are multilevel degenerative changes of dorsal spine. Surgical clips right upper quadrant of abdomen XR/XR chest 1V IMPRESSION: Unremarkable examination.
--- NOTE | ~2022-01-10 | CT_ITS ---
EXAMINATION: CT CHEST, ABDOMEN AND PELVIS WITHOUT CONTRAST CLINICAL INFORMATION: Fall to left side. Left-sided pain with palpation. COMPARISON: Chest x-ray dated 04/04/2019. TECHNIQUE: Multidetector volumetric imaging was performed from the base of the neck through the pubic symphysis. Sagittal and coronal reformatted images were obtained on the technologist workstation. This CT examination was performed using dose optimization techniques as appropriate, variously including the following: *Automated exposure control *Adjustment of mA and/or kV according to patient size (this includes techniques or standardized protocols for targeted exams where dose is matched to indication/reason for exam; i.e. extremities or head) *Use of iterative reconstruction technique DLP: 426.84 mGy-cm. FINDINGS: Patient nonverbal and unable to follow commands/breathing instructions or assume optimal positioning. . CT SCAN OF THE CHEST: LUNGS: Lungs bilaterally symmetrically expanded. Evaluation limited by motion artifact. No focal lung nodule or mass. Minimal bibasilar subsegmental atelectasis in the lower lobes. No effusion or pneumothorax. Central airways patent. LYMPHOVASCULAR STRUCTURES: Aortic and heart size normal. No pericardial effusion. No mediastinal, hilar or axillary adenopathy or free fluid collection. THYROID GLAND: Unremarkable to the extent included. BONES: Evaluation for subtle rib fractures is limited due to motion artifact. Thoracolumbar scoliosis and multilevel mild vertebral spondylosis seen. No abnormal paraspinal soft tissue changes or vertebral fractures seen. CT SCAN OF THE ABDOMEN AND PELVIS: LIVER, GALLBLADDER, AND BILIARY TREE: The liver is normal in attenuation. Jennifer's lobe variant of the right lobe of the liver is noted. No focal hepatic lesion on noncontrast imaging. No significant intrahepatic ductal dilatation. Common bile duct mildly dilated, measuring 0.8 cm, likely a combination of patient's postcholecystectomy state and age. The gallbladder is surgically absent. PANCREAS: The pancreatic head and tail are poorly from adjacent bowel loops and are not adequately assessed. The visualized portions of the pancreas appear grossly unremarkable on noncontrast exam. SPLEEN, ADRENAL GLANDS: Unremarkable on noncontrast imaging. KIDNEYS AND URETERS: The kidneys are normal in size, shape, and attenuation. No hydronephrosis, hydroureter, or calculi seen. No perinephric stranding. BLADDER: Unremarkable. PELVIC VISCERA: Uterus unremarkable. Ovaries not visualized amongst the multiple loops of bowel. GASTROINTESTINAL TRACT: There is marked dilatation of the rectal vault to 9.2 x 10.4 cm with rectal fecal impaction noted. There is significant mass effect upon the adjacent structures and small volume free fluid is seen in the presacral space. Large amount of fecal material is seen throughout the colon. Overall definition of bowel loops is limited due to lack of inherent fat contrast and lack of intravenous contrast. No evidence of small bowel obstruction or perforation. ABDOMINAL WALL: No significant hernia is appreciated. LYMPH NODES, VASCULAR: Unremarkable. No retroperitoneal hematoma. OSSEOUS STRUCTURES: Diffuse mild vertebral spondylosis. No acute fracture. CT/CT abdomen pelvis wo IV con IMPRESSION: 1. Limited exam due to motion artifact and lack of intravenous contrast. 2. No evidence of acute injury to the chest, abdomen or pelvis. 3. Marked dilatation of the rectal vault with rectal fecal impaction and small volume free fluid in the presacral space, raising the suspicion of stercoral colitis. 4. Status post cholecystectomy with mild prominence of the common bile duct, likely a combination of patient's age and postcholecystectomy state.
--- NOTE | 2022-01-10 19:50 | ED_ITS ---
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 Family declined case management services and opted to take the patient home yesterday. Per EMS the patient was found down in her bedroom by family after they heard a loud Bang. Unclear why the patient had the fall as she is unable to provide any history of present illness. Patient seems to be at her mental status baseline per family Related Data Home Medications Medication Instructions Recorded Confirmed amlodipine 10 mg tablet 1 tab PO QAM 01/03/22 01/03/22 cyanocobalamin (vitamin B-12) 100 1 tab PO QAM 01/03/22 01/03/22 mcg tablet divalproex 250 mg tablet,delayed 1 tab PO BID 01/03/22 01/03/22 release docusate sodium 100 mg capsule 1 cap PO BID 01/03/22 01/03/22 risperidone 0.5 mg tablet 1 tab PO BID 01/03/22 01/03/22 Previous Rx's Medication Instructions Recorded cefuroxime axetil 250 mg tablet 250 mg PO BID 4 days #8 tabs 01/09/22 divalproex 250 mg tablet,delayed 250 mg PO BID #60 tabs 01/09/22 release (Depakote) risperidone 1 mg tablet 0.5 mg PO BID #60 tabs 01/09/22 Allergies Allergy/AdvReac Type Severity Reaction Status Date / Time aspirin [ASA] Allergy Intermediate HIVES Unverified 12/10/19 16:37 penicillin G Allergy Unknown rash Verified 04/01/19 00:00 penicillin V Allergy Unknown rash Verified 11/10/14 00:00 Penicillins Allergy Unknown RASH Unverified 12/10/19 16:37 Review of Systems Review of Systems: Yes Unobtainable due to mental status Neurologic: Reports confusion Psychiatric: Psychiatric: Reports confusion PMFSH Past Medical History Attestation statement: The following information was validated with the patient. Source: old records reviewed and nursing notes reviewed Social History Social History Advance Directives: Yes Advance Directives on File: Yes Advance Directives Date on File: 01/03/22 Patient : No Physical Exam Vital Signs: Vital Signs: Last Vital Signs Temp 98.4 F 01/10/22 23:44 Pulse 109 H 01/10/22 23:44 Resp 16 01/10/22 23:44 BP 151/94 H 01/10/22 23:44 Pulse Ox 96 01/10/22 23:44 O2 Del Method 01/10/22 23:44 BMI result Body Mass Index 17.6 Const: Other: Agitated General: alert and confusion Orientation/consciousness: confusion Limitations: altered mental status HEENT: Head: Yes normal to inspection, No Nava's sign and No raccoon eyes Ears: hearing grossly normal bilaterally and TM's normal bilaterally General nose exam: Normal external nose present Face and sinus: Yes normal facial exam Mouth: Normal oral and palatal mucosa present Throat: Yes posterior oropharynx normal, Yes tonsils normal and Yes uvula midline Eyes: General: appearance normal, both eyes and all related structures Pupils: Equal, round and reactive pupils present Neck: Other: Cervical collar in place. No midline tenderness, step-offs deformities Neck: Yes normal visual inspection Chest: Chest palpation & inspection: normal inspection of the chest Resp: Effort & Inspection: normal respiratory effort Auscultation: clear to auscultation bilaterally Cardio: Rate: regular rate Rhythm: regular rhythm Peripheral pulses: Peripheral pulses 2+ throughout GI: Inspection: Yes normal to inspection Palpation (GI): Soft to palpation and nontender Auscultation: normal bowel sounds Back/Spine/Pelvis: Thoracic/Lumbar Spine: thoracic and lumbar spine normal to inspection Skin: General skin exam: no rashes or lesions noted Neuro: General: moves all extremities, no focal motor deficits, normal sensation to monofilament and confusion Cranial nerves: Yes Equal, round and reactive pupils present Extrem: Other: Pelvis is stable No shortening, rotation, deformity noted General: Yes normal to inspection Course Course Course Narrative: Patient is quite agitated, resistant to staff and all procedures. Not cooperative for imaging. Will not take p.o. medication. This is quite consistent with patient's typical behavior per family's at the bedside. Will give IM Haldol Reevaluation(s) Reevaluation #1: 2150-patient's BUN and creatinine has doubled since January 03. Likely secondary to dehydration. Patient has had poor p.o. intake, agitation, underlying dementia. Patient will have an IV placed and 1 L of normal saline Reevaluation #2: 4970-CT head and cervical spine are negative. X-ray of the hip and pelvis show no bony abnormality. Initial troponin was mildly elevated. Plan for repeat. EKG shows no ischemic changes. Spoke to daughter at bedside. Patient had been here for several days in the ER with case management involved pending placement. Family did take her home yesterday. They feel that they cannot safely take care of the patient at home. Therefore once medically cleared will need case management involvement. Reevaluation #3: 0100-repeat troponin unchanged. Likely chronic. Patient placed in physician observation pending case management involvement in the morning. MDM - Fall MDM Narrative Medical decision making narrative: This is a 61-year-old female with a history of dementia who comes in after an unwitnessed fall. Patient is confused at baseline and quite agitated. She is unable to provide history of present illness as to why she fell. Will need CT head and cervical spine, labs including troponin and EKG. Medical Records Attestation: I reviewed the patient's medical records. Lab Data Attestation: I reviewed the patient's lab results. Result diagrams: 01/10/22 21:26 01/10/22 21:26 Labs: Lab Results 01/10/22 01/10/22 01/10/22 Range/Units 21:26 21:26 21:26 WBC 8.2 (4.8-10.8) X10*3/uL RBC 4.04 L (4.20-5.50) X10*6/uL Hgb 12.3 (12.0-16.0) g/dl Hct 35.8 L (37.0-47.0) % MCV 88.6 (80.0-98.0) fL MCH 30.4 (27.0-33.0) pg MCHC 34.4 (31.0-35.0) g/dl RDW 12.9 (11.0-16.0) % Plt Count 142 L (160-400) X10*3/uL MPV 10.6 (9.4-12.3) fL Immature Gran % (Auto) 0.1 (0.0-0.4) % Neut % (Auto) 79.6 H (45-73) % Lymph % (Auto) 10.7 L (20-40) % [place] % (Auto) 9.4 (2-11) % Eos % (Auto) 0.0 (0-4) % Baso % (Auto) 0.2 (0-2) % Lymph # (Auto) 0.9 L (1.2-4.9) X10*3/uL [place] # (Auto) 0.8 (0.1-1.2) X10*3/uL Eos # (Auto) 0.0 (0.0-0.4) X10*3/uL Baso # (Auto) 0.0 (0.0-0.2) X10*3/uL Abs Immat Gran (auto) 0.01 (0.00-0.03) X10*3/uL Absolute Neuts (auto) 6.5 (2.0-8.3) x10*3/uL Absolute Nucleated RBC 0.000 (0.0-0.012) X10*3/uL Nucleated RBC % (auto) 0.0 (0.0-0.2) /100WBC Sodium 141 (135-145) mmol/L Potassium 4.2 (3.3-5.1) mmol/L Chloride 104 (96-108) mmol/L Carbon Dioxide 22 (22-29) mmol/L Anion Gap 19 (12-20) BUN 38 H D (9-16) mg/dL Creatinine 1.40 (0.5-1.4) mg/dL Estim Creat Clear Calc 26.9 Estimated GFR 38 Random Glucose 118 H (60-115) mg/dL Calcium 9.5 (8.4-10.2) mg/dL Troponin I High Sens 23.6 H (<3.5-17.0) ng/L COVID-19 (TEJAL) (Negative) COVID-19 Clin Com 01/10/22 01/11/22 Range/Units 23:49 00:26 WBC (4.8-10.8) X10*3/uL RBC (4.20-5.50) X10*6/uL Hgb (12.0-16.0) g/dl Hct (37.0-47.0) % MCV (80.0-98.0) fL MCH (27.0-33.0) pg MCHC (31.0-35.0) g/dl RDW (11.0-16.0) % Plt Count (160-400) X10*3/uL MPV (9.4-12.3) fL Immature Gran % (Auto) (0.0-0.4) % Neut % (Auto) (45-73) % Lymph % (Auto) (20-40) % [place] % (Auto) (2-11) % Eos % (Auto) (0-4) % Baso % (Auto) (0-2) % Lymph # (Auto) (1.2-4.9) X10*3/uL [place] # (Auto) (0.1-1.2) X10*3/uL Eos # (Auto) (0.0-0.4) X10*3/uL Baso # (Auto) (0.0-0.2) X10*3/uL Abs Immat Gran (auto) (0.00-0.03) X10*3/uL Absolute Neuts (auto) (2.0-8.3) x10*3/uL Absolute Nucleated RBC (0.0-0.012) X10*3/uL Nucleated RBC % (auto) (0.0-0.2) /100WBC Sodium (135-145) mmol/L Potassium (3.3-5.1) mmol/L Chloride (96-108) mmol/L Carbon Dioxide (22-29) mmol/L Anion Gap (12-20) BUN (9-16) mg/dL Creatinine (0.5-1.4) mg/dL Estim Creat Clear Calc Estimated GFR Random Glucose (60-115) mg/dL Calcium (8.4-10.2) mg/dL Troponin I High Sens 27.1 H (<3.5-17.0) ng/L COVID-19 (TEJAL) Negative (Negative) COVID-19 Clin Com See Note Imaging Data hip/pelvis x-ray: Attestation: I personally reviewed and interpreted this imaging study as follows: Radiologist's impression: [address] [address] XRay Report Signed Patient: Dominique Echavarria MR#: [id number] : 1960 Acct:[id number] Age/Sex: 61 / F ADM Date: 01/10/22 Loc: HO.ED Attending Dr: Ordering Physician: Laura Solis NP Date of Service: 01/10/22 Procedure(s): XR hip RT w PEL1V Accession Number(s): [id number] cc: Laura Solis NP~ EXAMINATION: XR HIP, RIGHT CLINICAL INFORMATION: Fall with pain COMPARISON: None TECHNIQUE: AP pelvis and 2 views of the right hip. FINDINGS: No acute fracture or dislocation. Bilateral hip joint spaces are maintained. Minimal acetabular rim osteophyte formation at both hips. Mild subchondral sclerosis and osteophytes the pubic symphysis. SI joints are congruent and intact. Large amount of stool seen in the rectum that obscures visualization of the sacrum.? XR/XR hip RT w PEL1V IMPRESSION: 1.? No acute fracture or dislocation identified. 2.? Minimal bilateral hip joint osteoarthritis with preserved joint spaces. ? CT head/cervical spine: Attestation: I personally reviewed and interpreted this imaging study as follows: Radiologist's impression: FINDINGS: Motion degraded examination. Head: No acute osseous or soft tissue abnormality. The mastoid air cells and visualized portions of the paranasal sinuses are well aerated. There is no evidence of acute intracranial hemorrhage or territorial infarction. No abnormal mass effect or midline shift is seen. [place] to white matter differentiation is well preserved. No extra-axial fluid collections are identified. No hydrocephalus. Proportional prominence of the ventricles and sulcal spaces is consistent with mild volume loss. Patchy periventricular and deep white matter hypoattenuation is consistent with mild small vessel ischemic changes. Cervical spine: There is no evidence of acute cervical spine fracture. Vertebral bodies remain normal in height.? ? Reversal of usual cervical lordosis, cervical levocurvature, mild anterolisthesis of C4 and C5 on the basis of advanced facet disease on the left. Moderate multilevel cervical spondylosis.. No pre- or paravertebral soft tissue abnormality is identified.? Visualized portions of the lung apices are unremarkable. Limited evaluation of the visualized soft tissues of the neck is unremarkable. CT/CT cervical spine wo IV con IMPRESSION: ? Motion degraded examination. Within the limitations of motion: ? 1.? No acute intracranial abnormality. ? 2.? No cervical spine fracture or traumatic malalignment. ? ECG Data Attestation: I personally reviewed and interpreted this ECG as follows: ECG interpretation date: 01/10/22 ECG interpretation time: 21:12 Interpretation: Sinus tachycardia with occasional PVCs with a rate of 118, normal HI, normal QRS, normal QT Discharge Plan Discharge Clinical Impression: Dementia, Fall Patient Disposition: Still a Patient Prescriptions: No Action cyanocobalamin (vitamin B-12) 100 mcg tablet 1 tab PO QAM divalproex 250 mg tablet,delayed release (DR/EC) 1 tab PO BID amlodipine 10 mg tablet 1 tab PO QAM docusate sodium 100 mg capsule 1 cap PO BID risperidone 0.5 mg tablet 1 tab PO BID divalproex [Depakote] 250 mg tablet,delayed release (DR/EC) 250 mg PO BID Qty: 60 0RF risperidone 1 mg tablet 0.5 mg PO BID Qty: 60 0RF cefuroxime axetil 250 mg tablet 250 mg PO BID 4 Days Qty: 8 0RF
[2022-01-10 19:52] VITALS: BP 130/64; BP 142/78; PULSE 118; PULSE 63; RESP 18; O2SAT 95; O2SAT 98; BMI 17.6
--- NOTE | 2022-01-10 19:54 | ECG_ITS ---
Test Reason : fall Blood Pressure : / mmHG Vent. Rate : 118 BPM Atrial Rate : 118 BPM P-R Int : 158 ms QRS Dur : 084 ms QT Int : 310 ms P-R-T Axes : 064 034 059 degrees QTc Int : 434 ms Sinus tachycardia with occasional Premature ventricular complexes Nonspecific T wave abnormality Inferior leads Abnormal ECG When compared with ECG of 04-APR-2019 22:53, Premature ventricular complexes are now Present T wave amplitude has increased in Anterior leads T wave amplitude has decreased in Inferior leads Referred By: Laura Solis Electronically Signed By:PETER TAMEZ MD
[2022-01-10] MEDS: OLANZapine 10 MG VIAL 5 MG IM (20:06)
[2022-01-10 20:09] VITALS: BP 142/74; PULSE 118; RESP 18; O2SAT 98
--- NOTE | 2022-01-10 20:37 | PC.NURSE ---
PROVIDER KEY AND RN SIVA IS AWARE THAT WE ARE UNABLE TO GET PATIENT LABS OR EKG BECAUSE PATIENT IS UNCOOPERATIVE AND AGITATED AT THIS TIME .
[2022-01-10] MEDS: diphenhydrAMINE HCL 50 MG/ML VIAL IM (20:39)
[2022-01-10 21:28] VITALS: BP 127/75; RESP 16; TEMP 37; O2SAT 98
[2022-01-10 21:31] LABS: Basophils Percent Auto 0.2 % (0-2); PLT CLUMP 1; SCAN SMEAR FLAG 1
[2022-01-10 21:33] LABS: Hematocrit 35.8 % (37.0-47.0); Hemoglobin 12.3 g/dl (12.0-16.0); Imm Gran Abs Auto 0.01 X10*3/uL (0.00-0.03); Imm Gran Pct Auto 0.1 % (0.0-0.4); Lymphocytes Absolute Auto 0.9 X10*3/uL (1.2-4.9); Lymphocytes Percent Auto 10.7 % (20-40); Mean Corpuscular HGB Conc 34.4 g/dl (31.0-35.0); Mean Corpuscular Hemoglobin 30.4 pg (27.0-33.0); Mean Corpuscular Volume 88.6 fL (80.0-98.0); Mean Platelet Volume 10.6 fL (9.4-12.3); Monocytes Absolute Auto 0.8 X10*3/uL (0.1-1.2); Monocytes Percent Auto 9.4 % (2-11); Neutrophils Absolute Auto 6.5 x10*3/uL (2.0-8.3); Neutrophils Percent Auto 79.6 % (45-73); Red Blood Count 4.04 X10*6/uL (4.20-5.50); Red Cell Distribution Width 12.9 % (11.0-16.0); White Blood Count 8.2 X10*3/uL (4.8-10.8)
[2022-01-10 21:34] LABS: MANUAL DIFF FLAG NO; Platelet Count 142 X10*3/uL (160-400)
[2022-01-10] MEDS: Haloperidol Lactate 5 MG/ML VIAL IM (21:41)
[2022-01-10 21:51] LABS: Anion Gap 19 (12-20); Blood Urea Nitrogen 38 mg/dL (9-16); Calcium 9.5 mg/dL (8.4-10.2); Carbon Dioxide 22 mmol/L (22-29); Chloride 104 mmol/L (96-108); Creatinine Clr Calc Pharmacy 26.9; Estimated Glomerular Filt Rate 38; Glucose Random 118 mg/dL (60-115); Potassium 4.2 mmol/L (3.3-5.1); Sodium 141 mmol/L (135-145)
[2022-01-10 21:58] LABS: Troponin-I High Sensitivity 23.6 ng/L (<3.5-17.0)
[2022-01-10 22:00] VITALS: BP 121/82; PULSE 115; RESP 18
[2022-01-10] MEDS: 0.9 % Sodium Chloride 1,000 ML 999 ML IV (22:08)
[2022-01-10] MEDS: Morphine Sulfate 2 MG/ML CARTRIDGE IVPUSH (22:15)
--- NOTE | 2022-01-10 22:25 | MHC.CM.ED ---
Pt medical work-up continuing. Daughter, Louise, asked to speak with CM. Louise tells CM that she cannot care for her mother. She tried and took her home yesterday and she fell today. Louise is requesting that pt go to long-term that offered her a bed yesterday. CM explained to Louise that referral process who have to begin again after the medical work up, as the bed that was offered yesterday may not be available today. Will place referrals once medical work up is completed. CM to follow for d/c needs.
--- NOTE | 2022-01-10 23:19 | PC.NURSE ---
C-Collar removed per CLINICAL DOCUMENTATION CLERK. Pt is tolerating all treaments well. Pt is more relaxed, does not seem to be in pain. Daughter is at the bedside.
[2022-01-10 23:44] VITALS: BP 151/94; PULSE 109; RESP 16; TEMP 36.9; O2SAT 96
[2022-01-11 00:11] LABS: COVID-19 Test Negative (Negative)
[2022-01-11 00:51] LABS: Troponin-I High Sensitivity 27.1 ng/L (<3.5-17.0)
--- NOTE | 2022-01-11 00:54 | PC.NURSE ---
patient deaughter leave ,davide simona martinez at bedside ,patient sleeping .
[2022-01-11 02:00] VITALS: PULSE 72; RESP 16
--- NOTE | 2022-01-11 02:07 | PC.NURSE ---
ROUNDING DONE ON ,PATIENT DRY AND SLEEPING WARM BLANKET GIVEN .
[2022-01-11 04:00] VITALS: PULSE 72; RESP 16
[2022-01-11 06:00] VITALS: BP 132/54; PULSE 84; RESP 16; TEMP 37.1; O2SAT 97
--- NOTE | 2022-01-11 06:43 | PC.NURSE ---
PATIENT WAS INC OF URINE ,BED BATH GIVEN ,LINEN CHANGE ,PATIENT GOWN CHANGE AND WARM BLANKET GIVEN ,OFFER JUICE ,PATIENT REFUSED .
--- NOTE | 2022-01-11 10:48 | MHC.CM.ED ---
Received case management overnight. Patient was discharged home from ER on 01/09 home with family. Bed offer at [facility] was made at that time. Patient's daughter/HCP, Louise was not interested in accepting bed at [facility] at that time. Patient fell at home and returned to ER. Patient has received 2 Moderna vaccines. HCP verified to be on file. PCP is at [facility]. Louise doesn't feel they can safely return home. Patient received IM Haldol. Anticipate patient will not be able to be found for at least48 hours. Referral broadcasted within 50 miles in [facility]. Continue to monitor for d/c needs.
--- NOTE | 2022-01-11 12:35 | PHA.MEDREC ---
Pharmacy Consult ? Medication Reconciliation Pharmacy has completed the medication reconciliation. Confirmed medications with patients daughter. Raquel Conner, FelicianoD
[2022-01-11 13:18] LABS: Appearance Urine Clear; Color Urine Dark Yellow; Glucose Urine UA Negative (Negative); Leukocyte Esterase Urine Negative (Negative); Nitrite Urine Negative (Negative); Urine Blood Negative (Negative); Urine Ketones 15 mg/dL (Negative); Urine Protein Trace mg/dL (Neg-Trace)
[2022-01-11] MEDS: OLANZapine 5 MG TABLET PO (14:42)
[2022-01-11] MEDS: Haloperidol Lactate 5 MG/ML VIAL IM (15:45)
[2022-01-11] MEDS: risperiDONE 0.5 MG TABLET PO ×2 (21:11→22:38)
[2022-01-11] MEDS: Divalproex Sodium 250 MG TABLET.DR PO ×2 (21:11→22:38)
[2022-01-12] MEDS: diphenhydrAMINE HCL 50 MG/ML VIAL 25 MG IVPUSH (00:38)
--- NOTE | 2022-01-12 02:20 | PC.NURSE ---
Patient was restless starting around 730pm. Laura TEJEDA notified ordered another dose of risperidone and depakote with no effect after over an hour. Dr. Kevin notified patient is still restless and trying to get out of bed ordered benadryl 25mg iv push with some effect. Patient is still talking but is not trying to climb out of bed. Compress Engineer at bedside at 11pm-3am.
[2022-01-12] MEDS: OLANZapine 2.5 MG TABLET PO (03:02)
[2022-01-12] MEDS: LORazepam 1 MG TABLET PO (03:02)
--- NOTE | 2022-01-12 03:08 | PC.NURSE ---
Addendum entered by Lenny Verduzco 01/12/22 06:18: pt incontinent of urine, pt cleaned, changed and repositioned w warm blankets. Original Note: pt restless, increased agitation, medicated per provider order - meds crushed and given in pudding. camera at bedside.
--- NOTE | 2022-01-12 05:11 | PC.NURSE ---
pt transition to hospital bed w bed alarm on, camera at bedside. pt sleeping, RR even and unlabored.
[2022-01-12 07:31] VITALS: BP 142/81; PULSE 84; RESP 14; TEMP 36.8; O2SAT 100
[2022-01-12] MEDS: Cyanocobalamin (Vitamin B-12) 100 MCG TABLET PO (07:34)
[2022-01-12] MEDS: Divalproex Sodium 250 MG TABLET.DR PO ×2 (07:34→19:55)
[2022-01-12] MEDS: risperiDONE 0.5 MG TABLET PO ×2 (07:34→19:55)
[2022-01-12] MEDS: amLODIPine Besylate 10 MG TABLET PO (07:34)
[2022-01-12 08:56] LABS: MANUAL DIFF FLAG NO
[2022-01-12 08:59] LABS: Basophils Percent Auto 0.4 % (0-2); Eosinophils Absolute Auto 0.1 X10*3/uL (0.0-0.4); Eosinophils Percent Auto 1.2 % (0-4); Hematocrit 35.1 % (37.0-47.0); Hemoglobin 11.9 g/dl (12.0-16.0); Imm Gran Abs Auto 0.02 X10*3/uL (0.00-0.03); Imm Gran Pct Auto 0.4 % (0.0-0.4); Lymphocytes Absolute Auto 1.2 X10*3/uL (1.2-4.9); Lymphocytes Percent Auto 23.3 % (20-40); Mean Corpuscular HGB Conc 33.9 g/dl (31.0-35.0); Mean Corpuscular Hemoglobin 30.5 pg (27.0-33.0); Mean Platelet Volume 10.4 fL (9.4-12.3); Monocytes Absolute Auto 0.7 X10*3/uL (0.1-1.2); Monocytes Percent Auto 13.1 % (2-11); Neutrophils Absolute Auto 3.1 x10*3/uL (2.0-8.3); Neutrophils Percent Auto 61.6 % (45-73); Platelet Count 128 X10*3/uL (160-400); Red Cell Distribution Width 12.6 % (11.0-16.0)
[2022-01-12 09:18] LABS: Anion Gap 12 (12-20); Blood Urea Nitrogen 15 mg/dL (9-16); Calcium 9.5 mg/dL (8.4-10.2); Carbon Dioxide 31 mmol/L (22-29); Chloride 104 mmol/L (96-108); Creatinine Clr Calc Pharmacy 61.7; Estimated Glomerular Filt Rate > 60; Glucose Random 97 mg/dL (60-115); Potassium 3.9 mmol/L (3.3-5.1); Sodium 143 mmol/L (135-145)
--- NOTE | 2022-01-12 09:44 | MHC.CM.ED ---
Patient remains in ER. Received IM Haldol on 01/11 at 1545. Placement will not be able to be found until patient has not received any IM medications for 48 hours. Continue to monitor for d/c needs.
--- NOTE | 2022-01-12 19:55 | PC.NURSE ---
Pt meds were administered as order. will continue to monitor.
[2022-01-12 20:00] VITALS: BP 125/71; PULSE 73; RESP 16; TEMP 36.9; O2SAT 94
--- NOTE | 2022-01-12 21:42 | PC.NURSE ---
ASSUMED CARE OF PATIENT AT THIS TIME ,SITTER AT BEDSIDE ,PATIENT WAS FED BY STAFF ATE 1 PUDDING AND 1 JELLO ,PATIENT IS SITTING AT THE SIDE OF BED .
[2022-01-12 22:33] VITALS: BP 136/84; PULSE 112; RESP 16; TEMP 36.6; O2SAT 96
--- NOTE | 2022-01-12 23:48 | PC.NURSE ---
PATIENT CONTINUE TO HAVE A 1:! ,PATIENT WAS INCONIENT OF URINE ,KENNEDY CARE GIVEN BEDDING CHANGE ,PATIENT WS GIVING WARM BLANKET ,PATIENT IS RESTING QUIETLY AT THIS TIME .
[2022-01-13] MEDS: diphenhydrAMINE HCL 25 MG CAPSULE PO (00:59)
--- NOTE | 2022-01-13 01:20 | PC.NURSE ---
PATIENT WAS INC OF URINE ,CARE GIVEN LINEN CHANGE ,PATIENT HAD A FEW BITES OF PUDDING
[2022-01-13] MEDS: Divalproex Sodium 250 MG TABLET.DR PO ×2 (09:17→21:46)
[2022-01-13] MEDS: amLODIPine Besylate 10 MG TABLET PO (09:21)
[2022-01-13] MEDS: risperiDONE 0.5 MG TABLET PO ×2 (09:21→21:46)
[2022-01-13] MEDS: Cyanocobalamin (Vitamin B-12) 100 MCG TABLET PO (09:22)
--- NOTE | 2022-01-13 09:36 | MHC.CM.ED ---
Addendum entered by Berna Wall 01/13/22 14:10: Received telephone call from patient's daughter, Louise. Louise agreeable to referral being broadcasted within 50 miles. Referral broadcasted in [facility]. Original Note: Patient remains in ER. Received IV Benadryl 01/13 at 00:30. [facility] could potentially accept on Saturday. Clinical updates sent as requested. Continue to monitor for d/c needs.
--- NOTE | 2022-01-13 10:31 | PC.NURSE ---
pt has slept most of the morning, skin wpd, nad, sitter at bedside and camera also on pt
--- NOTE | 2022-01-13 15:38 | PC.NURSE ---
q 15 minute checks done on paper charting per morning nurse ROZ Ramirez
--- NOTE | 2022-01-13 15:38 | PC.NURSE ---
Per morning nurse ROZ Ramirez, pt has slept most of morning, and has not eaten. Pt was incontinent of stool and urine, this nurse assisted in cleaning pt and changing linens. This nurse attempted to give pt jello and pudding, pt declined, will re-attempt later when dinner is available
[2022-01-13] MEDS: OLANZapine 2.5 MG TABLET PO (16:14)
--- NOTE | 2022-01-13 16:20 | PC.NURSE ---
pt began to get more agitated, attempting to get out of bed. This RN and Marine, student nurse, walked with pt to the bathroom, pt would not sit down so pt was walked back to her room. Pt continues to escalate, grabbing at staff and attempting to get out of bed. NIKHIL Goldsmith aware, Zyprex PO ordered. Pt ate Zyprexa crushed in pudding. Pt attempted to hit staff. Pt declines food, drink and bathroom at this point
--- NOTE | 2022-01-13 18:50 | PC.NURSE ---
patient ate 50 % of spagetti and meat sauce ,pt was a 1:1 feed ,sitter at bedside .
[2022-01-13 20:41] VITALS: PULSE 74; RESP 14; O2SAT 98
--- NOTE | 2022-01-13 20:41 | PC.NURSE ---
Pt sleeping on bed at this time with 1:[address], respirations are even and unlabored. Given the difficulty in getting pt to fall asleep earlier, this RN will hold off on night medications until pt wakes up
[2022-01-13] MEDS: Melatonin 3 MG TABLET PO (21:46)
--- NOTE | 2022-01-14 02:24 | PC.NURSE ---
pt continues to rest comfortably in bed, sleeping, respirations are even and unlabored
[2022-01-14 05:36] VITALS: BP 123/77; PULSE 79; RESP 16; O2SAT 100
[2022-01-14 10:56] VITALS: PULSE 70; RESP 12; O2SAT 98
[2022-01-14] MEDS: Divalproex Sodium 250 MG TABLET.DR PO ×2 (10:59→20:53)
[2022-01-14] MEDS: amLODIPine Besylate 10 MG TABLET PO (10:59)
[2022-01-14] MEDS: risperiDONE 0.5 MG TABLET PO ×2 (11:00→20:53)
[2022-01-14] MEDS: OLANZapine 2.5 MG TABLET PO (13:24)
[2022-01-14] MEDS: OLANZapine ODT 10 MG TAB.RAPDIS 5 MG TRANSLINGU (16:10)
--- NOTE | 2022-01-14 20:36 | PC.NURSE ---
PT WAS INC OF URINE ,BED BATH GIVEN N,BEDDING CHANGE ,PATIENT ATE A FEW BITES OF SUPPER ,DRANK 120 ML FLUIDS ,SITTER IS WITH PATIENT IN ROOM .
[2022-01-14] MEDS: Melatonin 3 MG TABLET PO (20:53)
[2022-01-14 22:17] VITALS: BP 122/71; PULSE 85; RESP 16; TEMP 36.6; O2SAT 98
--- NOTE | 2022-01-14 22:32 | PC.NURSE ---
PT IS ASLEEP AT THIS TIME VS TAKEN BY PATRICIA .
[2022-01-15 06:26] VITALS: BP 129/86; PULSE 99; RESP 17; O2SAT 97
[2022-01-15] MEDS: Divalproex Sodium 250 MG TABLET.DR PO ×2 (07:32→20:15)
[2022-01-15] MEDS: amLODIPine Besylate 10 MG TABLET PO (07:32)
[2022-01-15] MEDS: risperiDONE 0.5 MG TABLET PO ×2 (07:32→20:15)
[2022-01-15] MEDS: Cyanocobalamin (Vitamin B-12) 100 MCG TABLET PO (07:32)
[2022-01-15 07:52] VITALS: BP 118/43; PULSE 115; RESP 14
[2022-01-15] MEDS: OLANZapine ODT 10 MG TAB.RAPDIS 5 MG TRANSLINGU (10:29)
--- NOTE | 2022-01-15 10:45 | PC.NURSE ---
continued restless, pt allowed to walk with staff, given other oulets and no relief . scratching at staff. medicated per emar.
[2022-01-15] MEDS: Ziprasidone 20 MG CAPSULE PO (11:43)
--- NOTE | 2022-01-15 14:12 | PC.NURSE ---
family at bedside earlier, pt asleep in bed. resp even and unlabored. will continue to monitor.
[2022-01-15] MEDS: OLANZapine 2.5 MG TABLET PO (14:37)
--- NOTE | 2022-01-15 14:48 | MHC.CM.ED ---
Patient remains in ER. No bed offers made at this time. T/W spoke with [facility] liaison, Gosia. Explained family was concerned with ratings at [facility] and would prefer another building. Gosia is trying to verify if [facility] has a building. Patient's daughter, Louise aware. Continue to monitor for d/c needs.
--- NOTE | 2022-01-15 16:20 | PC.NURSE ---
ASSUMED CARE OF PATIENT AT 1500 ,PATIENT IS DRY AND IS SLEEPING ,CALL [facility] WITHIN REACH ,TELLE LANCE ELIAS IN ROOM ,LUNCH TRAY PICKED UP .
--- NOTE | 2022-01-15 17:28 | PC.NURSE ---
pt awake sitter at bedside .
--- NOTE | 2022-01-15 20:14 | PC.NURSE ---
pt was fed by sitter , pt ate a few bites drank sips of juice ,patient refused to eat any more supper ,sitter at bedside ,call galo within reach .
[2022-01-15] MEDS: Melatonin 3 MG TABLET PO (20:15)
[2022-01-15 21:33] VITALS: BP 142/88; PULSE 102; RESP 16; TEMP 37.2; O2SAT 95
--- NOTE | 2022-01-15 21:42 | PC.NURSE ---
PT VS TAKEN ,PT STILL VERY RESTLESS ,SITTER AT BEDSIDE ,PATIENT CONTINUE TO BE DRY AT THIS TIME .
--- NOTE | 2022-01-16 00:08 | PC.NURSE ---
upon rounding pt is still dry ,has not voided ,ximena angel was made aware .
--- NOTE | 2022-01-16 01:15 | PC.NURSE ---
PT WAS INCONTINENT OF EXTRA LARGE AMOUNT OF URINE IN HER BRIEF ,INC CARE GIVEN PT BACK TO SLEEP.
--- NOTE | 2022-01-16 02:02 | PC.NURSE ---
2AM ROUNDING DONE PT ASLEEP ,AND DRY ,CALL [facility] WITHIN REACH .
[2022-01-16] MEDS: Acetaminophen 325 MG TABLET 650 MG PO (03:22)
--- NOTE | 2022-01-16 04:13 | PC.NURSE ---
made 4 am rounding ,patient asleep and is dry .
[2022-01-16 06:00] VITALS: BP 122/60; PULSE 71; RESP 16; TEMP 36.8; O2SAT 95
--- NOTE | 2022-01-16 06:05 | PC.NURSE ---
6am rounding done ,patient awake resting quietly ,pt has sips of water ,pt is dry at this time ,warm blanket given ,call galo within reach .
[2022-01-16] MEDS: OLANZapine ODT 10 MG TAB.RAPDIS 5 MG TRANSLINGU (09:22)
[2022-01-16] MEDS: amLODIPine Besylate 10 MG TABLET PO (09:23)
[2022-01-16] MEDS: risperiDONE 0.5 MG TABLET PO ×2 (09:23→20:31)
[2022-01-16] MEDS: Divalproex Sodium 250 MG TABLET.DR PO ×2 (09:23→20:30)
[2022-01-16] MEDS: Cyanocobalamin (Vitamin B-12) 100 MCG TABLET PO (10:13)
--- NOTE | 2022-01-16 10:17 | PC.NURSE ---
patient remains on 1:1 . Danish speaking only . patient at baseline with history of dementia . patient took all Am medication with pudding , calm and cooperative with 1:1 sitter utilized . lungs clear . heart rate regular at 83 beats per minute . skin pink warm and dry. abdomen soft . non tender positive bowel sounds in all four quadrants . patient remains in case management care awaiting placement .
--- NOTE | 2022-01-16 11:41 | PC.NURSE ---
pt incontinent of urine, pt linens changed, bed bath given. pt given new gown and hospital pants. pt back in bed with sitter at bedside
--- NOTE | 2022-01-16 14:55 | MHC.CM.ED ---
Patient remains in ER. Still waiting to hear from [facility] about being able to offer a bed. T/W has reached out to [facility] liaison multiple times. Waiting to hear still. Continue to monitor for d/c needs.
[2022-01-16] MEDS: OLANZapine 2.5 MG TABLET PO (15:24)
[2022-01-16] MEDS: Melatonin 3 MG TABLET PO (20:30)
[2022-01-16] MEDS: diphenhydrAMINE HCL 50 MG/ML VIAL IM (21:03)
--- NOTE | 2022-01-16 21:13 | PC.NURSE ---
2044: Patient requiring frequent redirection. She remains restless, pulling at things, and urinates on the floor. She is difficult to redirect even with 1:[address] made aware.
[2022-01-17] MEDS: amLODIPine Besylate 10 MG TABLET PO (09:09)
[2022-01-17] MEDS: OLANZapine ODT 10 MG TAB.RAPDIS 5 MG TRANSLINGU (09:09)
[2022-01-17] MEDS: risperiDONE 0.5 MG TABLET PO ×2 (09:10→21:02)
[2022-01-17] MEDS: Divalproex Sodium 250 MG TABLET.DR PO ×2 (09:10→21:02)
[2022-01-17] MEDS: Cyanocobalamin (Vitamin B-12) 100 MCG TABLET PO (09:34)
--- NOTE | 2022-01-17 09:56 | MHC.CM.ED ---
Patient remains in ER. Physical therapy eval completed. Short term rehab is recommended. Patient was at [facility] [address] from 11/15/21-01/15/22 and was discharged home with Karen MENDES. Clinical updates sent to facilities still following: [facility], [facility]. [facility], [facility]. Patient does not want to return to [facility]. Continue to monitor for d/c needs.
--- NOTE | 2022-01-17 12:24 | MHC.CM.ED ---
Patient remains in ER. T/W spoke with Dominik Elise of [facility], via telephone. Their MMQ nurse is still reviewing patient. There is only 1 nurse in the building that completes that assessment. She is behind schedule with assessments. Patient's daughter/HCP, Louise made aware. Continue to monitor for d/c needs.
[2022-01-17] MEDS: OLANZapine 2.5 MG TABLET PO (15:46)
--- NOTE | 2022-01-17 19:23 | PC.NURSE ---
report received from Nhung COURTNEY. pt sitting up comfortably on stretcher. 1:[address] will continue to monitor
[2022-01-17] MEDS: Melatonin 3 MG TABLET PO (21:02)
--- NOTE | 2022-01-17 22:27 | PC.NURSE ---
Patient incontinent of urine. All bed linens changed and tom care provided. Patient irritable with assistance. +blanchable redness to coccyx and buttocks noted.
--- NOTE | 2022-01-18 03:59 | PC.NURSE ---
Pt sleeping comfortably on stretcher. Respirations even and unlabored, no apparent distress. Continuous monitoring in place.
[2022-01-18 05:56] VITALS: BP 108/68; PULSE 92; RESP 16; TEMP 36.4; O2SAT 97
[2022-01-18] MEDS: OLANZapine ODT 10 MG TAB.RAPDIS 5 MG TRANSLINGU (07:51)
[2022-01-18] MEDS: Divalproex Sodium 250 MG TABLET.DR PO ×2 (07:52→21:31)
[2022-01-18] MEDS: amLODIPine Besylate 10 MG TABLET PO (07:52)
[2022-01-18] MEDS: risperiDONE 0.5 MG TABLET PO ×2 (07:52→21:31)
[2022-01-18] MEDS: Cyanocobalamin (Vitamin B-12) 100 MCG TABLET PO (07:53)
--- NOTE | 2022-01-18 13:51 | MHC.CM.ED ---
Addendum entered by Berna Wall 01/18/22 14:03: Patient's daughter/HCP, aware. Original Note: Patient remains in ER. Spoke with yarelis Elise for [facility]. Nursing is still reviewing at this time. Continue to monitor for d/c needs.
[2022-01-18] MEDS: OLANZapine 2.5 MG TABLET PO (16:17)
--- NOTE | 2022-01-18 16:21 | PC.NURSE ---
Zyprexa med was given late as pt was sleeping for several hours soundly.
--- NOTE | 2022-01-18 18:20 | PC.NURSE ---
PT WAS INC OF LARGE AMOUNT OF URINE AND SMALL AMOUNT OF STOOL ,BED BATH GIVEN HAIR COMB ,1:1 SITTER IN ROOM FEEDING PATIENT SUPPER .
[2022-01-18 21:13] VITALS: RESP 18; TEMP 36.7; O2SAT 95
[2022-01-18] MEDS: Melatonin 3 MG TABLET PO (21:31)
[2022-01-18 22:41] VITALS: PULSE 61; RESP 18; TEMP 36.4; O2SAT 97
--- NOTE | 2022-01-18 23:05 | PC.NURSE ---
Pt sleeping comfortably, sitter in room. Will continue to monitor
--- NOTE | 2022-01-19 02:04 | PC.NURSE ---
pt was toileted and tom care wash done ,new pull up and poise pad was put on pt back to bed
[2022-01-19 03:04] VITALS: BP 126/78; PULSE 94; RESP 18; TEMP 37.2; O2SAT 97
[2022-01-19] MEDS: Acetaminophen 325 MG TABLET 650 MG PO (04:03)
[2022-01-19] MEDS: LORazepam 1 MG TABLET PO (04:40)
--- NOTE | 2022-01-19 05:42 | PC.NURSE ---
Pt asleep resting comfortably
--- NOTE | 2022-01-19 06:11 | PC.NURSE ---
pt was ambulated, toileted, and back to bed octavio pants were put on also , pt is asleep and comfortable
--- NOTE | 2022-01-19 08:57 | MHC.CM.ED ---
Updated clinical information and resubmitted to referrals. Pt will be a difficult placement: dementia: [facility] Pt received IV Benadryl and nursing reports pt is sleepy. Will monitor updated referrals for ? acceptance.
--- NOTE | 2022-01-19 09:06 | PC.NURSE ---
PT sleeping comfortably. No apparent distress. Will continue to observe.
--- NOTE | 2022-01-19 12:51 | PC.NURSE ---
PT continues to sleep. No apparent distress. Will continue to observe.
--- NOTE | 2022-01-19 16:36 | PC.NURSE ---
ASSUMED CRE OF PT AT 1500 ,PT SLEEPING AND IS DRY .
--- NOTE | 2022-01-19 17:57 | PC.NURSE ---
1800 ROUNDING DONE ,PT AWAKE PT WAS INC OF INC URINE ,BED BATH GIVEN ,SITTER AT BEDSIDE .
--- NOTE | 2022-01-19 19:53 | PC.NURSE ---
PT ATE 50 % OF SUPPER [id number] ML JUICE ,PT IS DRY SITTER AT BEDSIDE .
[2022-01-19] MEDS: risperiDONE 0.5 MG TABLET PO (20:53)
[2022-01-19] MEDS: Melatonin 3 MG TABLET PO (20:53)
[2022-01-19] MEDS: Divalproex Sodium 250 MG TABLET.DR PO (20:53)
[2022-01-19 22:00] VITALS: RESP 16
--- NOTE | 2022-01-19 22:14 | PC.NURSE ---
2200 ROUNDING DONE PATIENT ASLEEP TELLE SITTER IN ROOM ,PATIENT IS DRY RN ARCHANA SAID NOT TO DO VITALS PATIENT ASLEEP .
--- NOTE | 2022-01-19 23:47 | PC.NURSE ---
Addendum entered by Cathy Kam 01/20/22 00:02: 0000rounding done ,pt still asleep ,check pt she is dry ,call galo within reach telle sitter camrea in room . Original Note: 2300 rounding done ,pt is still asleep ,check pt she is dry ,call galo within reach ,telle sitter camera in room .
[2022-01-20 00:33] VITALS: BP 131/83; PULSE 96; RESP 16; TEMP 36.6; O2SAT 99
--- NOTE | 2022-01-20 00:42 | PC.NURSE ---
pt got up ,was inc of urine ,tom care given bedding change ,warm blanket given vs taken offer fluids ,but pt did not want to open her mouth ,pt fell back asleep ,call galo with in reach telle sitter in room .
--- NOTE | 2022-01-20 01:59 | PC.NURSE ---
0200 rounding done pt was check for incontinence pt is dry and is sleeping ,call galo with in reach .
--- NOTE | 2022-01-20 04:18 | PC.NURSE ---
0400 ROUNDING DONE ON PT ,PATIENT IS DRY AND ALSEEP ,CALL [facility] WITH IN REACH .
--- NOTE | 2022-01-20 04:34 | PC.NURSE ---
Pt ambulated in hallway for approx. 15 min with assistance of this RN and tech. Pt has steady gait, pt tolerated well.
--- NOTE | 2022-01-20 04:35 | PC.NURSE ---
Pt sitting on the edge of the bed per request, infectious disease technician sitting in room 1:1 with pt.
--- NOTE | 2022-01-20 04:38 | PC.NURSE ---
PT GOT UP ,PT DRY ,MYSELF AND RN ARCHANA TOOK PT FOR COUPLE OF LAPS AROUND THE ED ,TRY TO HAVE PT SAT ON TOILET ,BUT PT DID NOT WANT TO SIT ON TOILET SEAT ,CAME BACK TO ROOM PT DID NOT WANT TO LAY DOWN VITALS TAKEN ,THIS PCT STAY WITH PATIENT IN ROOM PT WAS OFFER FLUID BUT SHE REFUSED .
--- NOTE | 2022-01-20 05:59 | PC.NURSE ---
0600 ROUNDING DONE ,PATIENT ASLEEP AND IS DRY ,WARM BLANKET GIVEN ,CALL GRISSOM WITHIN REACH .
--- NOTE | 2022-01-20 10:11 | PC.NURSE ---
PT CURRENTLY SLEEPING, CONTINUES TO HAVE [place]ER[place] MONITOR FOR SAFETY.
[2022-01-20] MEDS: OLANZapine ODT 10 MG TAB.RAPDIS 5 MG TRANSLINGU (10:27)
[2022-01-20] MEDS: amLODIPine Besylate 10 MG TABLET PO (10:28)
[2022-01-20] MEDS: risperiDONE 0.5 MG TABLET PO ×2 (10:28→23:13)
[2022-01-20] MEDS: Divalproex Sodium 250 MG TABLET.DR PO ×2 (10:28→23:13)
--- NOTE | 2022-01-20 10:53 | PC.NURSE ---
patient clean and compete bed change .
--- NOTE | 2022-01-20 12:48 | PC.NURSE ---
Pt resting in bed at this time. Alternating between pacing around the emergency deparment and resting in bed. In behavioral control
[2022-01-20] MEDS: OLANZapine 2.5 MG TABLET PO (13:07)
--- NOTE | 2022-01-20 15:39 | PC.NURSE ---
Pt sleeping at this time with camera at bedside, will continue to monitor
[2022-01-20] MEDS: LORazepam 1 MG TABLET PO (17:12)
[2022-01-20] MEDS: Melatonin 3 MG TABLET PO (23:13)
[2022-01-21] MEDS: LORazepam 1 MG TABLET PO ×2 (01:32→20:38)
[2022-01-21 06:27] VITALS: BP 135/75; PULSE 70; RESP 16; O2SAT 100
[2022-01-21 06:29] VITALS: TEMP 36.4
[2022-01-21] MEDS: Divalproex Sodium 250 MG TABLET.DR PO ×2 (12:48→20:39)
[2022-01-21] MEDS: OLANZapine ODT 10 MG TAB.RAPDIS 5 MG TRANSLINGU (12:49)
[2022-01-21] MEDS: amLODIPine Besylate 10 MG TABLET PO (12:49)
[2022-01-21] MEDS: risperiDONE 0.5 MG TABLET PO ×2 (12:49→20:38)
[2022-01-21 12:51] VITALS: BP 117/66; PULSE 63
[2022-01-21 14:41] VITALS: BP 165/75; PULSE 114; RESP 14; TEMP 36.6; O2SAT 94
[2022-01-21] MEDS: OLANZapine 2.5 MG TABLET PO (15:46)
[2022-01-21] MEDS: Melatonin 3 MG TABLET PO (20:39)
[2022-01-22 06:00] VITALS: BP 112/82; PULSE 84; RESP 16; TEMP 36.6; O2SAT 100
[2022-01-22] MEDS: risperiDONE 0.5 MG TABLET PO ×2 (08:43→20:41)
[2022-01-22] MEDS: OLANZapine ODT 10 MG TAB.RAPDIS 5 MG TRANSLINGU (08:43)
[2022-01-22] MEDS: amLODIPine Besylate 10 MG TABLET PO (09:01)
[2022-01-22 09:02] VITALS: BP 116/76; PULSE 100; RESP 16
[2022-01-22] MEDS: Divalproex Sodium 250 MG TABLET.DR PO ×2 (09:02→20:42)
--- NOTE | 2022-01-22 10:39 | PC.NURSE ---
This RN fed pt, drank all fluids on tray and ate 1/2 eggs with 1/2 oatmeal. Accepted AM meds. BP stable (see VSS) Back to sleep at this time
[2022-01-22 12:22] VITALS: BP 112/57; PULSE 76; RESP 12; TEMP 36.6; O2SAT 96
--- NOTE | 2022-01-22 14:30 | PC.NURSE ---
Pt asleep, held 1300 Zyprexa at this time and will attempt lunch when pt awakes
--- NOTE | 2022-01-22 16:20 | MHC.CM.ED ---
UPDATES SENT TO [facility] NO OTHER SNF FOLLOWING.
[2022-01-22] MEDS: LORazepam 1 MG TABLET PO (19:08)
[2022-01-22] MEDS: Melatonin 3 MG TABLET PO (20:42)
--- NOTE | 2022-01-22 20:42 | PC.NURSE ---
Pt v/s are stable, pt meds were administered. Pt is pacing at the time of the re-assessment.
[2022-01-23 05:45] VITALS: PULSE 69; RESP 17; TEMP 36.7; O2SAT 95
--- NOTE | 2022-01-23 10:00 | MHC.CM.ED ---
Addendum entered by Berna Wall 01/23/22 14:33: Spoke with Gosia at [facility]. Patient can transfer to [facility] on 01/25. Patient's daughter/HCP, Louise made aware via telephone and agreeable to discharge plan. Original Note: Patient remains in ER. Waiting for a return telephone call from Gosia [facility] liaison, to see if patient can be accommodated at the [facility] or [facility]. Continue to monitor for d/c needs.
[2022-01-23] MEDS: amLODIPine Besylate 10 MG TABLET PO (13:31)
[2022-01-23] MEDS: OLANZapine 2.5 MG TABLET PO (13:31)
[2022-01-23] MEDS: LORazepam 1 MG TABLET PO (13:34)
[2022-01-23] MEDS: OLANZapine ODT 10 MG TAB.RAPDIS 5 MG TRANSLINGU (14:23)
[2022-01-23] MEDS: risperiDONE 0.5 MG TABLET PO (14:23)
[2022-01-23] MEDS: Divalproex Sodium 250 MG TABLET.DR PO (14:28)
[2022-01-23 16:34] VITALS: RESP 16; TEMP 36.3
[2022-01-24] MEDS: LORazepam 1 MG TABLET PO (01:50)
[2022-01-24] MEDS: Acetaminophen 325 MG TABLET 650 MG PO (01:50)
[2022-01-24] MEDS: Melatonin 3 MG TABLET PO ×2 (02:19→21:00)
[2022-01-24] MEDS: Divalproex Sodium 250 MG TABLET.DR PO ×3 (02:19→20:59)
[2022-01-24] MEDS: risperiDONE 0.5 MG TABLET PO ×3 (02:19→20:59)
[2022-01-24 06:00] VITALS: BP 117/69; PULSE 71; RESP 15; O2SAT 99
[2022-01-24] MEDS: OLANZapine ODT 10 MG TAB.RAPDIS 5 MG TRANSLINGU (11:08)
[2022-01-24] MEDS: amLODIPine Besylate 10 MG TABLET PO (11:08)
[2022-01-24] MEDS: OLANZapine 2.5 MG TABLET PO (11:09)
[2022-01-24] MEDS: Cyanocobalamin (Vitamin B-12) 100 MCG TABLET PO (11:09)
--- NOTE | 2022-01-24 11:24 | PC.NURSE ---
patient breathing even and unlabored . bed at lowest level continue on monitoring . Took 6 ounces of pudding with Am medication this morning . patient aware of plan of care .
--- NOTE | 2022-01-24 13:00 | PC.NURSE ---
patient changed and repositioned incontinentent moderate amount of urine . bed at lowest level . patient continues on CVM monitoring .
--- NOTE | 2022-01-24 16:50 | PC.NURSE ---
patient breathing even and unlabored . patient incontinent of moderate amount of urine . patient changed and repositioned. Linen changed . bed at lowest positioning . patient on continued CVM monitoring .
[2022-01-24 19:21] VITALS: BP 150/86; RESP 20; TEMP 36.1; O2SAT 100
[2022-01-24 21:00] VITALS: PULSE 107; O2SAT 99
--- NOTE | 2022-01-24 21:00 | PC.NURSE ---
patient incontinent of urine. tom care provided. patient boosted and repositioned in stretcher with pillows and warm blankets.
--- NOTE | 2022-01-24 23:58 | PC.NURSE ---
Patient incontinent of urine. Pat care provided. Patient boosted and repositioned onto her right side.
[2022-01-25] MEDS: Acetaminophen 325 MG TABLET 650 MG PO (02:22)
--- NOTE | 2022-01-25 02:32 | PC.NURSE ---
Patient appears to be grimacing, slightly uncomfortable appearing in stretcher. Pillows and blankets adjusted. Patient is dry (no incontinence). HR low 100s-1teens. Tylenol given at this time in pudding.
[2022-01-25 04:22] VITALS: RESP 14
[2022-01-25 04:33] VITALS: BP 118/75; PULSE 104; RESP 17; TEMP 37.2; O2SAT 99
--- NOTE | 2022-01-25 05:45 | PC.NURSE ---
PT checked for incontinence. PT repositioned in bed. PT given Pat care/ Bed Linen changed.
--- NOTE | 2022-01-25 07:51 | PC.NURSE ---
pt is currently asleep, respirations even and unlabored, in no apparent distress at this time
[2022-01-25 10:39] VITALS: BP 133/68; PULSE 104; RESP 16; O2SAT 99
[2022-01-25] MEDS: risperiDONE 0.5 MG TABLET PO ×2 (10:40→22:54)
[2022-01-25] MEDS: amLODIPine Besylate 10 MG TABLET PO (10:40)
[2022-01-25] MEDS: OLANZapine ODT 10 MG TAB.RAPDIS 5 MG TRANSLINGU (10:41)
[2022-01-25] MEDS: Divalproex Sodium 250 MG TABLET.DR PO ×2 (10:41→22:53)
[2022-01-25 10:42] LABS: COVID-19 Test Negative (Negative); IDNOW Serial# 55D5AD1C
--- NOTE | 2022-01-25 11:47 | MHC.CM.ED ---
Patient remains in ER. Received notification from [facility] liaison, the patient that was supposed to discharge from their facility did not discharge. Patient's transfer to [facility] will have to be postponted until 01/26. Patient's daughter/HCP, Louise aware. Continue to monitor for d/c needs.
--- NOTE | 2022-01-25 11:59 | PC.NURSE ---
pt resting comfortably, RR even and unlabored, bed in lowest setting and alarmed, camera at bedside, plan for pt to discharge from ED 01/26.
[2022-01-25 14:40] VITALS: BP 104/71; PULSE 92; RESP 14; TEMP 37.1; O2SAT 100
--- NOTE | 2022-01-25 15:04 | PC.NURSE ---
AM medications held to allow pt to sleep, pt sleeping from [id number], medications passed off to Selena COURTNEY.
--- NOTE | 2022-01-25 17:00 | PC.NURSE ---
report received from ROZ Galvez, morning medications passed off Pt remains asleep, will plan to administer mediations when pt is awake
--- NOTE | 2022-01-25 22:52 | PC.NURSE ---
Pt woke to take medications, Pt was able to swallow medication in pudding with no difficulty.
[2022-01-25] MEDS: Melatonin 3 MG TABLET PO (22:54)
[2022-01-25 23:15] VITALS: BP 106/69; PULSE 100; RESP 14; TEMP 36.9; O2SAT 100
--- NOTE | 2022-01-26 01:31 | PC.NURSE ---
PT Soiled with urine and Loose Stool. PT given tom care and bed pad changed. Beto Canas made aware of pt loose bm
[2022-01-26] MEDS: Acetaminophen 325 MG TABLET 650 MG PO ×2 (04:49→20:27)
--- NOTE | 2022-01-26 04:49 | PC.NURSE ---
Pt appears to be in pain when tech was taking vitals. Pt was given PRN pain meds, pt was able to wake and take medication with pudding.
[2022-01-26 06:11] VITALS: BP 97/69; PULSE 104; RESP 15; TEMP 36.6; O2SAT 100
--- NOTE | 2022-01-26 06:15 | PC.NURSE ---
Pt sleeping at this time, respirations regular.
--- NOTE | 2022-01-26 06:26 | PC.NURSE ---
Pt woke to take medications, Pt was able to swallow medication in pudding with no difficulty.
--- NOTE | 2022-01-26 06:27 | PC.NURSE ---
Pt given Pat care/ barrier cream applied. pad changed and pt given warm blankets and call galo.
--- NOTE | 2022-01-26 06:46 | PC.NURSE ---
PT having Loose bm. ROZ Canas made aware.
--- NOTE | 2022-01-26 10:00 | PC.NURSE ---
Patient breathing even and unlabored . arouasable . took morning medication with full serving of pudding repositioned and changed . . continues on CVM monitoring . awaiting news of transfer to facility .
[2022-01-26] MEDS: OLANZapine ODT 10 MG TAB.RAPDIS 5 MG TRANSLINGU (10:27)
[2022-01-26] MEDS: risperiDONE 0.5 MG TABLET PO ×2 (10:27→20:26)
[2022-01-26] MEDS: amLODIPine Besylate 10 MG TABLET PO (10:27)
[2022-01-26] MEDS: Divalproex Sodium 250 MG TABLET.DR PO ×2 (10:27→20:26)
[2022-01-26] MEDS: Cyanocobalamin (Vitamin B-12) 100 MCG TABLET PO (10:27)
[2022-01-26 10:29] VITALS: BP 130/87; PULSE 101; RESP 16; TEMP 36.4; O2SAT 96
--- NOTE | 2022-01-26 15:52 | PC.NURSE ---
patient changed and repositioned , patient had large loose bowel movement . patients bed at lowest position . patient continues on CVM .
[2022-01-26] MEDS: Melatonin 3 MG TABLET PO (20:26)
--- NOTE | 2022-01-27 08:35 | MHC.CM.ED ---
Received notification that [facility] will not have bed availability until Saturday, 01/29. [facility] transport cancelled for 01/27 and rebooked for 01/29 at 11am. This time will need to be confirmed with [place] Saturday am. ED care team, pt and pt's contact aware of plan. ED CM to follow for changes to d/c plan.
[2022-01-27] MEDS: risperiDONE 0.5 MG TABLET PO ×2 (08:42→20:18)
[2022-01-27] MEDS: OLANZapine ODT 10 MG TAB.RAPDIS 5 MG TRANSLINGU (08:42)
[2022-01-27] MEDS: Divalproex Sodium 250 MG TABLET.DR PO ×2 (08:42→20:18)
[2022-01-27] MEDS: Cyanocobalamin (Vitamin B-12) 100 MCG TABLET PO (08:43)
[2022-01-27] MEDS: amLODIPine Besylate 10 MG TABLET PO (08:43)
--- NOTE | 2022-01-27 08:44 | PC.NURSE ---
Pt incontinent of urine and stool. Cleaned up, full bed change and repositioned. Pt ate 50% of breakfast
[2022-01-27 08:52] VITALS: BP 126/84; PULSE 77; RESP 16; O2SAT 99
--- NOTE | 2022-01-27 08:55 | PC.NURSE ---
PT awake, PO meds given as documented. Incontinent care provided, repositioned. No apparent distress. Will continue to observe.
[2022-01-27] MEDS: OLANZapine 2.5 MG TABLET PO (15:21)
[2022-01-27] MEDS: Melatonin 3 MG TABLET PO (20:18)
[2022-01-27 20:53] VITALS: BP 115/75; PULSE 74; RESP 18; TEMP 36.9; O2SAT 100
[2022-01-27 23:32] VITALS: BP 127/73; PULSE 83; RESP 16; TEMP 36.2; O2SAT 95
--- NOTE | 2022-01-28 01:21 | PC.NURSE ---
pt was given tom care and given fluids and pudding ,,,pt had a med bowel movement
[2022-01-28 06:00] VITALS: BP 145/78; PULSE 92; RESP 16; TEMP 36.8; O2SAT 98
[2022-01-28 08:10] VITALS: BP 133/80; PULSE 97; RESP 24
[2022-01-28] MEDS: Divalproex Sodium 250 MG TABLET.DR PO ×2 (08:42→20:47)
[2022-01-28] MEDS: risperiDONE 0.5 MG TABLET PO ×2 (08:42→20:47)
[2022-01-28] MEDS: OLANZapine ODT 10 MG TAB.RAPDIS 5 MG TRANSLINGU (08:42)
[2022-01-28] MEDS: Cyanocobalamin (Vitamin B-12) 100 MCG TABLET PO (08:43)
[2022-01-28] MEDS: amLODIPine Besylate 10 MG TABLET PO (08:43)
[2022-01-28 13:17] VITALS: BP 133/82; PULSE 98; RESP 16; TEMP 37.1; O2SAT 99
--- NOTE | 2022-01-28 14:22 | PC.NURSE ---
NIKHIL Garza instructed to hold medication and let patient sleep
--- NOTE | 2022-01-28 14:47 | MHC.CM.ED ---
Pt continues boarding until 01/29 when [facility] should have an open bed. COVID test ordered in anticipation of STR transfer: [facility]ER[facility] booked for 01/29 at 11am but this will need to be confirmed w/[facility] in the am. Dtr understands d/c plan per CM conversation on 01/28. ED CM to follow
[2022-01-28 15:46] LABS: Influenza A PCR NEGATIVE (Negative); Influenza B PCR NEGATIVE (Negative); Resp Syncy Virus RNA Qual PCR NEGATIVE (Negative); SARS COV2 PCR INHOUSE NEGATIVE (Negative)
[2022-01-28] MEDS: Melatonin 3 MG TABLET PO (20:47)
--- NOTE | 2022-01-28 20:49 | PC.NURSE ---
bedtime medications given with pudding, no issues. patient resting comfortably on stretcher. will continue to monitor closely.
[2022-01-28 23:50] VITALS: BP 142/80; PULSE 108; RESP 15; TEMP 36.7; O2SAT 98
[2022-01-29] MEDS: amLODIPine Besylate 10 MG TABLET PO (09:07)
[2022-01-29] MEDS: Cyanocobalamin (Vitamin B-12) 100 MCG TABLET PO (09:07)
[2022-01-29] MEDS: Divalproex Sodium 250 MG TABLET.DR PO ×2 (09:07→21:24)
[2022-01-29] MEDS: risperiDONE 0.5 MG TABLET PO ×2 (09:07→21:23)
[2022-01-29] MEDS: OLANZapine ODT 10 MG TAB.RAPDIS 5 MG TRANSLINGU (09:07)
--- NOTE | 2022-01-29 09:38 | MHC.CM.ED ---
Addendum entered by Berna Wall 01/29/22 15:55: Daughter/HCP, Louise austin. Original Note: Patient remains in ER. Trying to confirm with [facility] can accept patient today. Continue to monitor for d/c needs.
[2022-01-29 10:54] VITALS: BP 127/73; PULSE 91; TEMP 36.3
[2022-01-29] MEDS: OLANZapine 2.5 MG TABLET PO (15:00)
--- NOTE | 2022-01-29 20:17 | PC.NURSE ---
Pt ate 90% of dinner, drank 120ml of liquid. SG
[2022-01-29] MEDS: Melatonin 3 MG TABLET PO (21:23)
[2022-01-29 22:21] VITALS: BP 93/50; PULSE 64; RESP 12; TEMP 37.2; O2SAT 97
--- NOTE | 2022-01-29 23:27 | PC.NURSE ---
Pt soiled with urine. Pt given pericare. Pt bed linen and pad changed barrier cream applied to Pt bottom. Pt given warm blankets and call galo placed in reach.
[2022-01-30] MEDS: Acetaminophen 325 MG TABLET 650 MG PO (03:00)
--- NOTE | 2022-01-30 03:06 | PC.NURSE ---
pt presents facial grimacing and restlessness. tylenol PO PRN given according to MAR in pudding at this time. pt took medication in pudding without difficulty.
--- NOTE | 2022-01-30 05:22 | PC.NURSE ---
Pt given tom care. Pt bed pads changed. Barrier cream applied to Pt bottom. Pt given warm blankets, bed in lowest position with bed alarm armed and call galo placed in reach
[2022-01-30 05:24] VITALS: BP 102/59; PULSE 103; RESP 15; TEMP 36.8; O2SAT 100
[2022-01-30 07:46] VITALS: BP 109/71; PULSE 81; RESP 18; O2SAT 100
--- NOTE | 2022-01-30 09:24 | MHC.CM.ED ---
Addendum entered by Berna Wall 01/30/22 13:11: Patient's daughter/HCP, Louise geovanna. Original Note: Patient remains in ER. Reached out to [facility] liaison to see if there is bed available today. Waiting to hear back. Continue to monitor for d/c needs.
[2022-01-30] MEDS: amLODIPine Besylate 10 MG TABLET PO (10:04)
[2022-01-30] MEDS: OLANZapine ODT 10 MG TAB.RAPDIS 5 MG TRANSLINGU (10:04)
[2022-01-30] MEDS: Divalproex Sodium 250 MG TABLET.DR PO ×2 (10:04→23:50)
[2022-01-30] MEDS: risperiDONE 0.5 MG TABLET PO ×2 (10:05→23:50)
[2022-01-30] MEDS: Cyanocobalamin (Vitamin B-12) 100 MCG TABLET PO (10:07)
--- NOTE | 2022-01-30 11:23 | PC.NURSE ---
Pt cleaned up @0930, new bed linens in place and repositioned to right side. Pt ate 100% of breakfast
--- NOTE | 2022-01-30 13:56 | PC.NURSE ---
Pt incontinent of urine and stool, cleaned up @1357, new bed linens placed. Pt ate 75% of lunch.
[2022-01-30] MEDS: OLANZapine 2.5 MG TABLET PO (14:15)
[2022-01-30 16:51] VITALS: BP 135/74; PULSE 87; RESP 18; TEMP 37.5; O2SAT 99
--- NOTE | 2022-01-30 19:24 | PC.NURSE ---
assumed care of patient at 1900. patient resting comfortably on stretcher
[2022-01-30 20:34] VITALS: BP 130/79; PULSE 99; RESP 18; O2SAT 98
[2022-01-30] MEDS: Melatonin 3 MG TABLET PO (23:50)
[2022-01-31 00:29] VITALS: BP 133/78; PULSE 87; RESP 18; TEMP 36.8; O2SAT 98
[2022-01-31 08:27] VITALS: BP 103/69; PULSE 96; RESP 12; TEMP 37; O2SAT 100
[2022-01-31] MEDS: Divalproex Sodium 250 MG TABLET.DR PO ×2 (08:47→20:36)
[2022-01-31] MEDS: OLANZapine ODT 10 MG TAB.RAPDIS 5 MG TRANSLINGU (08:47)
[2022-01-31] MEDS: Cyanocobalamin (Vitamin B-12) 100 MCG TABLET PO (08:48)
[2022-01-31] MEDS: risperiDONE 0.5 MG TABLET PO ×2 (08:48→20:36)
[2022-01-31] MEDS: amLODIPine Besylate 10 MG TABLET PO (08:48)
--- NOTE | 2022-01-31 13:15 | MHC.CM.ED ---
Patient remains in ER. [facility] does not have a bed available today. Referral has been rebroadcasted to see if there is any new bed availability. 116 referrals have been made. No bed offers made at this time. Continue to monitor for d/c needs.
[2022-01-31 14:20] VITALS: BP 91/61; PULSE 76; RESP 12; TEMP 36.2; O2SAT 99
[2022-01-31] MEDS: Melatonin 3 MG TABLET PO (20:36)
[2022-02-01 00:21] VITALS: BP 135/75; PULSE 106; RESP 18; TEMP 37.1; O2SAT 100
--- NOTE | 2022-02-01 00:24 | PC.NURSE ---
Pt given pericare. Bed pads changed and Pt repositioned in bed.PT given warm blankets and call galo placed in reach.Bed at lowest position and bed alarm armed
[2022-02-01] MEDS: Acetaminophen 325 MG TABLET 650 MG PO (04:02)
--- NOTE | 2022-02-01 05:56 | PC.NURSE ---
PT given pericare. Moisture barrier cream applied to pt bottom. Pt given warm blankets and call galo placed in reach. Bed at lowest position and bed alarm armed
--- NOTE | 2022-02-01 08:09 | PC.NURSE ---
pt is currently sleeping, respirations even and unlabored, in no apparent distress at this time
[2022-02-01 09:57] VITALS: BP 101/68; PULSE 94; RESP 16; O2SAT 100
[2022-02-01] MEDS: OLANZapine ODT 10 MG TAB.RAPDIS 5 MG TRANSLINGU (09:58)
[2022-02-01] MEDS: amLODIPine Besylate 10 MG TABLET PO (09:58)
[2022-02-01] MEDS: Divalproex Sodium 250 MG TABLET.DR PO ×2 (09:58→21:56)
[2022-02-01] MEDS: risperiDONE 0.5 MG TABLET PO ×2 (09:59→21:56)
[2022-02-01] MEDS: Cyanocobalamin (Vitamin B-12) 100 MCG TABLET PO (10:45)
[2022-02-01] MEDS: OLANZapine 2.5 MG TABLET PO (14:11)
[2022-02-01 14:24] VITALS: BP 101/77; PULSE 90; RESP 14
[2022-02-01] MEDS: Melatonin 3 MG TABLET PO (21:56)
[2022-02-01 23:42] VITALS: BP 135/84; PULSE 108; RESP 14; TEMP 36.4; O2SAT 96
[2022-02-02 06:05] VITALS: RESP 14
--- NOTE | 2022-02-02 06:54 | PC.NURSE ---
Pt was sleeping for most of the night. Pt had two episodes of urinary incontinence change and repositioned.
[2022-02-02] MEDS: OLANZapine ODT 10 MG TAB.RAPDIS 5 MG TRANSLINGU (09:41)
[2022-02-02] MEDS: Cyanocobalamin (Vitamin B-12) 100 MCG TABLET PO (09:41)
[2022-02-02] MEDS: risperiDONE 0.5 MG TABLET PO ×2 (09:41→23:15)
[2022-02-02] MEDS: amLODIPine Besylate 10 MG TABLET PO (09:41)
[2022-02-02] MEDS: Divalproex Sodium 250 MG TABLET.DR PO ×2 (09:41→23:15)
[2022-02-02 09:48] VITALS: BP 116/71; PULSE 88; RESP 16; TEMP 36.6; O2SAT 98
[2022-02-02] MEDS: OLANZapine 2.5 MG TABLET PO (15:58)
[2022-02-02 16:05] VITALS: BP 134/82; PULSE 96; RESP 16; TEMP 36.6; O2SAT 99
--- NOTE | 2022-02-02 16:06 | PC.NURSE ---
this pct assumed care of pt at 1500 ,pt awake and is dry ,call galo within reach ,tele sitter camamy in room .
[2022-02-02 22:00] VITALS: BP 151/77; PULSE 105; RESP 16; TEMP 36.6; O2SAT 98
--- NOTE | 2022-02-02 22:06 | PC.NURSE ---
PT WAS INC OF URINE ,BED BATH GIVEN LINEN CHANGE ,LOTION APPLY TO ARMS AND LEGS ,BERRIER CREAM APPLY TO COCCYX ,PATIENT S FED DINNER ATE A PBJ SANDWICH AND A PUDDING ,DRANK 2 CARTON OF MILK ,PATIENT WAS TEARY REACH FOR MY HAND ,I GIVE HER A HUG ,SHE THEN GIVE ME BACK A HUG AND A KISS .
[2022-02-02] MEDS: Melatonin 3 MG TABLET PO (23:15)
--- NOTE | 2022-02-03 01:00 | PC.NURSE ---
0000 rounding done pt asleep and dry sitter in room
--- NOTE | 2022-02-03 01:48 | PC.NURSE ---
0200 ROUNDING DONE ,PT ASLEEP AND DRY ,SITTER AT BEDSIDE .
--- NOTE | 2022-02-03 04:20 | PC.NURSE ---
0400 rounding done ,pt was check ,she dry ,sitter in room ,call galo within reach .
[2022-02-03 06:00] VITALS: BP 121/77; PULSE 88; RESP 16; TEMP 36.7; O2SAT 98
--- NOTE | 2022-02-03 06:18 | PC.NURSE ---
0600 rounding done vs taken ,pt was wet ,incontinence care given linen change ,cream apply to coccyx ,warm blanket given ,sitter at bedside .
[2022-02-03] MEDS: Cyanocobalamin (Vitamin B-12) 100 MCG TABLET PO (07:33)
[2022-02-03] MEDS: amLODIPine Besylate 10 MG TABLET PO (07:33)
[2022-02-03] MEDS: OLANZapine ODT 10 MG TAB.RAPDIS 5 MG TRANSLINGU (07:33)
[2022-02-03] MEDS: risperiDONE 0.5 MG TABLET PO ×2 (07:33→20:54)
[2022-02-03] MEDS: Divalproex Sodium 250 MG TABLET.DR PO ×2 (07:33→20:54)
--- NOTE | 2022-02-03 13:45 | PC.NURSE ---
HELD XYPRESA DUE TO LETHARGY.
--- NOTE | 2022-02-03 13:46 | PC.NURSE ---
ZYPREXA HELD DUE TO LETHARGY.
[2022-02-03] MEDS: Melatonin 3 MG TABLET PO (20:54)
[2022-02-03 21:02] VITALS: BP 122/79; PULSE 109; RESP 14; TEMP 36.8; O2SAT 100
--- NOTE | 2022-02-03 22:04 | PC.NURSE ---
PT fell, pt was assess and no injury noted. Pt being sent to [facility] by [facility] Incident report filed. SG
[2022-02-04 00:21] VITALS: BP 126/79; PULSE 107; RESP 16; TEMP 36.6; O2SAT 100
--- NOTE | 2022-02-04 00:21 | PC.NURSE ---
Pt soiled with urine and trying to get out of bed. Pt given pericare , gown and bed pads changed. Pt given warm blankets, Bed in lowest position and armed . Call galo placed in reach
[2022-02-04] MEDS: diphenhydrAMINE HCL 25 MG CAPSULE 50 MG PO (01:55)
[2022-02-04] MEDS: LORazepam 0.5 MG TABLET PO (03:14)
--- NOTE | 2022-02-04 03:17 | PC.NURSE ---
Medicated per Mar. Will continue to monitor.
--- NOTE | 2022-02-04 04:08 | PC.NURSE ---
PT restless from 2:00am-4:15am , sitting with PT in room as well as feeding PT and walking around the halls with PT while using the gait belt. Pt placed back in bed at 4:15am and seems to be resting and falling asleep. Pt bed lowered to lowest position and bed alarm armed
--- NOTE | 2022-02-04 04:49 | PC.NURSE ---
Pt given tom care and new pull up placed on Pt. Bed pad changed. Pt bed placed in lowest positon and bed alarm armed
--- NOTE | 2022-02-04 06:00 | PC.NURSE ---
Assumed pt care. Pt is sleeping after being sedated for CT scan which was ordered prior to my caring for pt.
--- NOTE | 2022-02-04 06:10 | PC.NURSE ---
Pt given tom care, Bed pad changed and pull up taken off because it was soiled with urine . Pt given warm blankets and call galo placed in reach. Bed in lowest position and bed alarm armed
[2022-02-04] MEDS: Sodium Phosphate,Mono-Dibasic 133 ML ENEMA PR (09:13)
[2022-02-04] MEDS: risperiDONE 0.5 MG TABLET PO ×2 (09:19→20:40)
[2022-02-04] MEDS: Divalproex Sodium 250 MG TABLET.DR PO ×2 (09:19→20:40)
[2022-02-04] MEDS: Cyanocobalamin (Vitamin B-12) 100 MCG TABLET PO (09:19)
[2022-02-04] MEDS: amLODIPine Besylate 10 MG TABLET PO (09:19)
[2022-02-04] MEDS: polyethylene glycoL 3350 17 GM POWD.PACK PO (09:20)
[2022-02-04] MEDS: OLANZapine ODT 10 MG TAB.RAPDIS 5 MG TRANSLINGU (09:20)
[2022-02-04 09:28] VITALS: BP 101/60; PULSE 91; RESP 16; TEMP 36.6; O2SAT 97
[2022-02-04 10:05] LABS: MANUAL DIFF FLAG NO
[2022-02-04 10:06] LABS: Basophils Absolute Auto 0.1 X10*3/uL (0.0-0.2); Basophils Percent Auto 1.2 % (0-2); Eosinophils Absolute Auto 0.1 X10*3/uL (0.0-0.4); Eosinophils Percent Auto 1.7 % (0-4); Hematocrit 33.4 % (37.0-47.0); Hemoglobin 11.3 g/dl (12.0-16.0); Imm Gran Abs Auto 0.01 X10*3/uL (0.00-0.03); Imm Gran Pct Auto 0.2 % (0.0-0.4); Lymphocytes Absolute Auto 1.1 X10*3/uL (1.2-4.9); Lymphocytes Percent Auto 26.8 % (20-40); Mean Corpuscular HGB Conc 33.8 g/dl (31.0-35.0); Mean Corpuscular Hemoglobin 31.2 pg (27.0-33.0); Mean Corpuscular Volume 92.3 fL (80.0-98.0); Mean Platelet Volume 9.9 fL (9.4-12.3); Monocytes Absolute Auto 0.5 X10*3/uL (0.1-1.2); Monocytes Percent Auto 12.6 % (2-11); Neutrophils Absolute Auto 2.4 x10*3/uL (2.0-8.3); Neutrophils Percent Auto 57.5 % (45-73); Platelet Count 142 X10*3/uL (160-400); Red Blood Count 3.62 X10*6/uL (4.20-5.50); Red Cell Distribution Width 13.3 % (11.0-16.0); White Blood Count 4.2 X10*3/uL (4.8-10.8)
[2022-02-04 10:21] LABS: Lactic Acid 1.5 mmol/L (0.5-2.0)
[2022-02-04 10:29] LABS: Alanine Aminotransferase 47 U/L (0-31); Albumin Level 3.1 g/dL (3.5-5.0); Alkaline Phosphatase 45 U/L (39-117); Anion Gap 15 (12-20); Aspartate Amino Transferase 32 U/L (5-31); Bilirubin Total 0.4 mg/dL (0.0-1.0); Blood Urea Nitrogen 25 mg/dL (9-16); Calcium 9.8 mg/dL (8.4-10.2); Carbon Dioxide 27 mmol/L (22-29); Chloride 105 mmol/L (96-108); Creatinine Clr Calc Pharmacy 60.7; Estimated Glomerular Filt Rate > 60; Glucose Random 119 mg/dL (60-115); Potassium 4.2 mmol/L (3.3-5.1); Sodium 143 mmol/L (135-145); Total Protein 5.4 g/dL (6.5-8.0)
--- NOTE | 2022-02-04 11:25 | PC.NURSE ---
patient had a large bowel movement after enema and miralex . patient changed and repositioned . bed at lowest position . CVM monitoring contining .
[2022-02-04] MEDS: OLANZapine 2.5 MG TABLET PO (15:13)
--- NOTE | 2022-02-04 16:00 | PC.NURSE ---
patient had large loose bowel movement . patient changed and repositioned . provider aware . bed at lowest position . patient continues on CVM monitor .
[2022-02-04] MEDS: Melatonin 3 MG TABLET PO (20:40)
--- NOTE | 2022-02-04 21:08 | PC.NURSE ---
Pt was asleep, pt meds were given.
[2022-02-04 22:35] VITALS: PULSE 85; RESP 14; O2SAT 99
--- NOTE | 2022-02-05 01:51 | PC.NURSE ---
Patient care at 23:45 B/M loose. Also at 01:25 another loose B/M requiring patient care. Reposition to prevent bed sores.
--- NOTE | 2022-02-05 03:48 | PC.NURSE ---
Patient care at 03:30 soft stool. Reposition to left side to prevent bed sores.
--- NOTE | 2022-02-05 04:50 | PC.NURSE ---
At 04:30 feed patient two cups of vanilla pudding , drank two ounce of cranberry juice, and gave a warm blanket.
[2022-02-05 06:00] VITALS: BP 92/62; PULSE 88; RESP 16; TEMP 37.2; O2SAT 94
--- NOTE | 2022-02-05 08:30 | MHC.CM.ED ---
Addendum entered by Berna Wall 02/05/22 13:20: Referral also sent to [facility] to see if they would be able to accept patient. Addendum entered by Berna Wall 02/05/22 10:31: Per Alison [facility] have a bed available to offer. Addendum entered by Beran Wall 02/05/22 09:41: T/W reached out to yarelis Rosas at [facility]. They do not have any beds available. Referral sent to [facility] at Alison's request. She will speak to the property administrator of that building. [facility] still doesn't have a bed available. T/W reached out to all facilities that have not responded in [facility]. Waiting for return telephone calls from: [facility], [facility], [facility], [facility], [facility], [facility], [facility], [facility], [facility], [facility], and [facility]. Original Note: Patient remains in ER. No bed offers made yet. Patient previous was exhibiting behaviors, making placement difficult. Appropriate medication regimen has been found at this time. Patient is not an elopement risk because she doesn't ambulate fast enough. Has advanced dementia. Clinical updates sent to facilities still following patient. Continue to monitor for d/c needs.
--- NOTE | 2022-02-05 08:50 | PC.NURSE ---
Addendum entered by Shaheed Chilel 02/05/22 10:11: Patient cntinues to not be arrousable enough to take medications. Provider made aware of the situation Original Note: Patient appears to be sleepy and did not eat breakfast. Patient not awake enough to take morning medications. Provider made aware.
[2022-02-05 10:55] VITALS: BP 116/76
[2022-02-05] MEDS: risperiDONE 0.5 MG TABLET PO ×2 (10:56→20:55)
[2022-02-05] MEDS: OLANZapine ODT 10 MG TAB.RAPDIS 5 MG TRANSLINGU (10:56)
[2022-02-05] MEDS: Cyanocobalamin (Vitamin B-12) 100 MCG TABLET PO (11:00)
[2022-02-05] MEDS: Divalproex Sodium 250 MG TABLET.DR PO ×2 (11:00→20:55)
--- NOTE | 2022-02-05 13:20 | MHC.CM.ED ---
Addendum entered by Berna Wall 02/05/22 14:08: [facility] is not willing to have patient placed that far away. Will accept a bed at [facility] if it is still available. [facility] made aware and is reviewing to see if they can offer a bed. Laverne at [facility] also aware family will not accept a bed. Original Note: Received telephone call from Juan Manuel at [facility]. Clinical info faxed to [phone]. Juan Manuel requested family be made aware that facility is so far away. T/W notified Louise. Waiting to hear if [facility] would be willing to accept a bed that far. Also explained if a bed was offered and they didn't accept it, they would have to accept a bed at [facility], if it is still available, or take the patient home. Continue to monitor for d/c needs.
[2022-02-05] MEDS: OLANZapine 2.5 MG TABLET PO (15:54)
--- NOTE | 2022-02-05 16:10 | PC.NURSE ---
THIS PCT ASSUMED CARE OF PT AT 1500 ,PT HAD A MEDIUM LOOSE BOWEL MOVEMENT AND LARGE AMOUNT OF URINE ,BED BATH GIVEN ,LOTION APPLY TO ARMS AND LEGS ,BARRIER CREAM APPLY TO COCCYX ,BEDDING CHANGE PATIENT FAS FED A PUDDING AND HAD SOME WATER ,CALL GRISSOM IN PLACE TELLE SITTER ON AND ALARM ON BED ,PT WATCHING TELEVISION .
--- NOTE | 2022-02-05 19:28 | PC.NURSE ---
1800 rounding done pt was soil with md amount of loose bowel movement ,care given ,pt was fed dinner ate 100 % of meal drank 360 ml juice and milk ,call galo in place and tele sitter in room ,bed alarm on bed .
[2022-02-05] MEDS: Melatonin 3 MG TABLET PO (20:55)
--- NOTE | 2022-02-05 21:54 | PC.NURSE ---
Patient medicated per MAR. Patient attempted to get out of the bed several times- bed alarm engaged, room camera/monitor is on. Patient has 1:1 supervision at present d/t high risk of falling/prevent falls.
[2022-02-05 21:59] VITALS: BP 100/61; PULSE 58; RESP 16; TEMP 36.6; O2SAT 95
--- NOTE | 2022-02-05 22:38 | PC.NURSE ---
2200 rounding done ,pt asleep sitter at bedside .
--- NOTE | 2022-02-05 23:11 | PC.NURSE ---
pt was change again at 2300 .
--- NOTE | 2022-02-06 00:16 | PC.NURSE ---
pt had a med loose stool , she was given tom care and a smaller octavio she is resting now
[2022-02-06] MEDS: Acetaminophen 325 MG TABLET 650 MG PO (02:08)
--- NOTE | 2022-02-06 02:47 | PC.NURSE ---
Patient had 3 episodes of loose BM. Dr. Trujillo notified. Per MD continue to monitor patient, report to MD further episodes of loose stool/diarrhea. Patient's sitter and tech notified.
[2022-02-06 03:39] VITALS: BP 104/61; PULSE 90; RESP 16; TEMP 36.4; O2SAT 96
--- NOTE | 2022-02-06 05:08 | PC.NURSE ---
pt had 3 med loose stools a lil sticky, no c-diff smell, .. pt was just cleaned and repositioned on her side to sleep
[2022-02-06 06:18] VITALS: BP 107/67; PULSE 60; RESP 17; TEMP 36.4; O2SAT 96
--- NOTE | 2022-02-06 06:19 | PC.NURSE ---
pt was repositioned and check to see if voided and she was dry and covered back up for her day
[2022-02-06] MEDS: Cyanocobalamin (Vitamin B-12) 100 MCG TABLET PO (08:29)
[2022-02-06] MEDS: OLANZapine ODT 10 MG TAB.RAPDIS 5 MG TRANSLINGU (08:29)
[2022-02-06] MEDS: risperiDONE 0.5 MG TABLET PO ×2 (08:29→22:05)
[2022-02-06] MEDS: amLODIPine Besylate 10 MG TABLET PO (08:29)
[2022-02-06] MEDS: Divalproex Sodium 250 MG TABLET.DR PO ×2 (08:30→22:05)
--- NOTE | 2022-02-06 08:45 | PC.NURSE ---
PT awake and calm, sitting up in bed. Ate 75% of breakfast with assist. Meds given as documented. Sitter at bedside.
--- NOTE | 2022-02-06 09:17 | PC.NURSE ---
Pt incontinent of urine, cleaned up and repositioned to left side @09:17am. Barrier cream applied to red spots on bottom, bed linens changed and had a few sips of water. Pt sleeping at this time
--- NOTE | 2022-02-06 12:39 | PC.NURSE ---
Incontinent care provided. PT repositioned.
--- NOTE | 2022-02-06 13:52 | MHC.CM.ED ---
Patient remains in ER. [facility] is not able to offer a bed. [facility] is still willing to offer a bed, when a female bed is available.They are still unsure when a female bed will be available. Clinical info sent to [facility] via fax for them to review. Continue to monitor for d/c needs.
[2022-02-06] MEDS: Melatonin 3 MG TABLET PO (22:04)
[2022-02-06] MEDS: LORazepam 1 MG TABLET PO (23:00)
[2022-02-06] MEDS: OLANZapine 5 MG TABLET PO (23:44)
--- NOTE | 2022-02-07 05:54 | PC.NURSE ---
Pt. remains in emergency department. Medicated per MAY, and given one-time Zyprexa and Ativan d/t restlessness. Resting comfortably throughout the night with sitter camera at bedside. Will continue to monitor.
[2022-02-07 06:24] VITALS: BP 106/64; PULSE 60; TEMP 36.6; O2SAT 100
--- NOTE | 2022-02-07 06:44 | PC.NURSE ---
Checked patient for incontinence, she was not incontinent. Changed out old blankets for warm blankets at the time.
--- NOTE | 2022-02-07 07:57 | PC.NURSE ---
tried to feed patient will not eat at the moment will try again later
--- NOTE | 2022-02-07 09:21 | PC.NURSE ---
Pt cleaned, complete bed change, 2a repositioned. Pt is sleeping.
[2022-02-07 09:45] VITALS: BP 111/61; PULSE 71; RESP 17; O2SAT 98
--- NOTE | 2022-02-07 09:47 | PC.NURSE ---
pt is alert responds to verbal stimuli (conference interpreter) no sob/laura noted lungs slightly diminished. pt is sleeping resp even and unlabored. unable to administered am meds pt states that she wants to sleep . heart sound regular. abd soft and non-tender, bs + x 4 quads. pt was repositioned to r side.
--- NOTE | 2022-02-07 12:24 | PC.NURSE ---
pt is sitting up in recliner. pt's daughter is trying to feed her but pt continues to want to sleep.
[2022-02-07 14:00] VITALS: BP 108/60; PULSE 70; RESP 14; TEMP 36.6; O2SAT 96
--- NOTE | 2022-02-07 14:02 | MHC.CM.ED ---
Patient remains in ER. No bed available at [facility]. Still waiting to hear from [facility]. Patient's daughter/HCP, Louise made aware. Louise is upset that no placement has been found and that discharge plan changes day to day. T/W validated her feelings but also explained bed availability changes multiple times a day at facilities. Continue to monitor for d/c needs.
--- NOTE | 2022-02-07 14:32 | PC.NURSE ---
pt continues to sleep in the recliner, attempted to give meds without any success.
--- NOTE | 2022-02-07 14:35 | PC.NURSE ---
no meds given, pt continues to sleep, resp even and unlabored pt continues to refuse meds, mlp aware.
--- NOTE | 2022-02-07 14:57 | MHC.CM.ED ---
Patient remains in ER. Patient has advanced dementia. No behaviors except for insomnia and wanting to walk around the unit, especially at night. Patient is total care and takes medication without issues. Placement has been difficult to find due to lack of bed availability locally. [facility] is still interested in patient when bed becomes available. However, they're not sure when they will have a bed. Patient has been in the ER for 21 days. Patient's behavior's have been stable since medication regimen has been established. Continue to monitor for d/c needs.
--- NOTE | 2022-02-07 15:58 | PC.NURSE ---
this pct assumed care of pt at 1500 ,pt is dry and is sleeping ,telle sitter in room ,bed alarn on bed ,call galo within reach .
--- NOTE | 2022-02-07 17:05 | PC.NURSE ---
PT JUST GOT OUT OF BED ,BED ALARM WENT OFF BUT GIDEON SITTER DID NOT RESPOND ,PT WAS WET CARE GIVEN ,SIT PT IN RECLINER ,BUT PT KEPT ON GETTING UP ,SO WE PT PATIENT BACK TO BED ,BED ALARN ON ,CALL GRISSOM IN PLACE .
--- NOTE | 2022-02-07 18:19 | PC.NURSE ---
PT IS VERY RESTLESS ,KEPT ON GETTING UP OUT OF BED .
[2022-02-07] MEDS: risperiDONE 0.5 MG TABLET PO (18:22)
[2022-02-07] MEDS: Divalproex Sodium 250 MG TABLET.DR PO (18:22)
[2022-02-07] MEDS: OLANZapine ODT 10 MG TAB.RAPDIS 5 MG TRANSLINGU (18:22)
[2022-02-07 19:34] VITALS: BP 135/77; PULSE 98; RESP 18; O2SAT 100
--- NOTE | 2022-02-07 20:03 | PC.NURSE ---
2000 rounding done ,pt ate 100 % of meal ,drank 480 ml ,pt was walk to the bathroom void lg amount of urine ,sitter at bedside .
--- NOTE | 2022-02-07 22:19 | PC.NURSE ---
2200 rounding done .pt awake and resting quietly ,sitter at bedside .
[2022-02-07] MEDS: Melatonin 3 MG TABLET PO (22:37)
--- NOTE | 2022-02-07 23:17 | PC.NURSE ---
Pt continues to climb out of bed for the past few hours. Pt has been walked around the ED and taken to the bathroom. Pt unable to sleep with night time melatonin. Provider made aware of pt condition. Plan to try PO Zyrexa.
[2022-02-08] MEDS: OLANZapine 2.5 MG TABLET PO ×2 (00:11→15:46)
[2022-02-08] MEDS: diphenhydrAMINE HCL 25 MG CAPSULE 50 MG PO (00:12)
--- NOTE | 2022-02-08 02:19 | PC.NURSE ---
0200 rounding done pt is asleep ,telle sitter juan in room ,call galo within reach pt is dry .
--- NOTE | 2022-02-08 04:34 | PC.NURSE ---
0400 rounding done pt awake looking around ,and is dry ,telle sitter camera is in place ,alarm on bed is on ,call galo within reach .
[2022-02-08 06:00] VITALS: BP 139/86; PULSE 80; RESP 16; TEMP 36.7; O2SAT 97
--- NOTE | 2022-02-08 06:42 | PC.NURSE ---
0600 rounding done vs taken pt sitting up in bed ,pt dry and clean ,telle sitter in room ,bed alarm on and call galo within reach .
[2022-02-08] MEDS: Acetaminophen 325 MG TABLET 650 MG PO ×2 (06:47→23:48)
[2022-02-08] MEDS: Divalproex Sodium 250 MG TABLET.DR PO ×2 (07:39→20:21)
[2022-02-08] MEDS: OLANZapine ODT 10 MG TAB.RAPDIS 5 MG TRANSLINGU (07:39)
[2022-02-08] MEDS: Cyanocobalamin (Vitamin B-12) 100 MCG TABLET PO (07:39)
[2022-02-08] MEDS: risperiDONE 0.5 MG TABLET PO ×2 (07:39→20:21)
[2022-02-08] MEDS: amLODIPine Besylate 10 MG TABLET PO (07:39)
--- NOTE | 2022-02-08 08:24 | PC.NURSE ---
Pt ate breakfast and was medicated per the MAY. Bed change was completed.
--- NOTE | 2022-02-08 12:41 | PC.NURSE ---
Pt sleeping in bed, respirations even and unlabored
--- NOTE | 2022-02-08 14:30 | MHC.CM.ED ---
Patient remains in ER. [facility] is still willing to offer a bed when a bed is available. Waiting to hear from [facility]. Received telephone call from E[facility]. She can be reached via telephone at [phone], ext [phone]. Discharge barriers explained. Eileen verbalized understanding. Continue to monitor for d/c needs.
[2022-02-08 16:11] VITALS: BP 119/71; PULSE 60; RESP 14; TEMP 35.8; O2SAT 98
--- NOTE | 2022-02-08 17:43 | PC.NURSE ---
pt found on floor by PA. primary rn aware. sitter now with pt at bedside instead of camera. vss. 148/86 hr 95 temp 99.0. pa made aware and plan to reassess UTI status. incident report to be completed.
[2022-02-08] MEDS: Melatonin 3 MG TABLET PO (20:21)
[2022-02-09] MEDS: OLANZapine 2.5 MG TABLET PO (03:27)
--- NOTE | 2022-02-09 03:50 | PC.NURSE ---
Pt high risk for falls with multiple attempts to get out of bed. 1:1 sitter at bedside. Pt able to be re-directed to bed. Pt has not been noted to sleep during this night. No apparent distress noted. Will continue to monitor. MD aware.
[2022-02-09] MEDS: amLODIPine Besylate 10 MG TABLET PO (08:36)
[2022-02-09] MEDS: Divalproex Sodium 250 MG TABLET.DR PO ×2 (08:37→21:30)
[2022-02-09] MEDS: OLANZapine ODT 10 MG TAB.RAPDIS 5 MG TRANSLINGU (08:37)
[2022-02-09] MEDS: Cyanocobalamin (Vitamin B-12) 100 MCG TABLET PO (08:38)
[2022-02-09] MEDS: risperiDONE 0.5 MG TABLET PO ×2 (08:38→21:30)
--- NOTE | 2022-02-09 14:32 | MHC.CM.ED ---
Patient remains in ER. No bed offers at this time. Received voicemail from patient's daughter/HCP, Louise, requesting referral to [facility]. Referral has been made to this facility in the past. However, referral resent at Louise's request. Continue to monitor for d/c needs.
[2022-02-09] MEDS: Melatonin 3 MG TABLET PO (21:30)
[2022-02-10 00:13] VITALS: BP 112/68; PULSE 100; RESP 18; TEMP 36.5; O2SAT 98
--- NOTE | 2022-02-10 04:43 | PC.NURSE ---
Changed patients bed sheet and deloris followed with a bed bath. Sprayed bottom with moisturizer barrier to prevent bed sores. Gave patient warm blanket and sitter put other blankets over patient. Patient comfortable in bed.
[2022-02-10] MEDS: Divalproex Sodium 250 MG TABLET.DR PO ×2 (08:01→21:38)
[2022-02-10] MEDS: risperiDONE 0.5 MG TABLET PO ×2 (08:01→21:38)
[2022-02-10] MEDS: OLANZapine ODT 10 MG TAB.RAPDIS 5 MG TRANSLINGU (08:01)
[2022-02-10] MEDS: Cyanocobalamin (Vitamin B-12) 100 MCG TABLET PO (08:01)
[2022-02-10] MEDS: amLODIPine Besylate 10 MG TABLET PO (08:01)
[2022-02-10] MEDS: OLANZapine 2.5 MG TABLET PO (15:33)
--- NOTE | 2022-02-10 15:43 | PC.NURSE ---
this pct assumed care of pt at 1500 ,pt is clean and dry ,pt daughter alexis at bedside ,sitter also at bedside .
--- NOTE | 2022-02-10 16:02 | PC.NURSE ---
pt was incontinent of urine ,bed bath given ,lotion apply pt was position off her bottom ,barrier cream apply to coccyx ,baby powder apply to body ,pt daughter fed pt ham sandwich and orange juice .
[2022-02-10] MEDS: Acetaminophen 325 MG TABLET 650 MG PO (16:55)
--- NOTE | 2022-02-10 18:33 | PC.NURSE ---
1800 rounding done ,pt was wet incontinent care given ,sitter at bedside feeding pt supper .
--- NOTE | 2022-02-10 20:20 | PC.NURSE ---
2000 rounding done pt asleep and is dry ,sitter at bedside .
--- NOTE | 2022-02-10 20:25 | PC.NURSE ---
Pt sleeping at this time, respirations regular.
[2022-02-10 20:48] VITALS: BP 97/56; PULSE 70; RESP 16; TEMP 36.6; O2SAT 98
--- NOTE | 2022-02-10 20:48 | PC.NURSE ---
2100 rounding done pt asleep and is dry vs taken sitter at bed side .
[2022-02-10] MEDS: Melatonin 3 MG TABLET PO (21:38)
--- NOTE | 2022-02-10 22:11 | PC.NURSE ---
2200 rounding done ,pt asleep and is dry ,sitter at bedside .
--- NOTE | 2022-02-11 00:41 | PC.NURSE ---
0000 rounding done pt asleep and dry ,sitter at bedside .
--- NOTE | 2022-02-11 02:11 | PC.NURSE ---
0200 rounding pt was wet inc care given ,sitter at bedside .
--- NOTE | 2022-02-11 02:48 | PC.NURSE ---
pt was wet at 0230 ,inc care given ,sitter in room .
[2022-02-11 08:48] VITALS: BP 104/76; PULSE 90; RESP 14; TEMP 36.7; O2SAT 100
[2022-02-11] MEDS: amLODIPine Besylate 10 MG TABLET PO (08:50)
[2022-02-11] MEDS: risperiDONE 0.5 MG TABLET PO ×2 (08:50→20:45)
[2022-02-11] MEDS: OLANZapine ODT 10 MG TAB.RAPDIS 5 MG TRANSLINGU (08:50)
[2022-02-11] MEDS: Cyanocobalamin (Vitamin B-12) 100 MCG TABLET PO (08:50)
[2022-02-11] MEDS: Divalproex Sodium 250 MG TABLET.DR PO ×2 (08:50→20:45)
[2022-02-11 11:59] VITALS: RESP 16
[2022-02-11] MEDS: OLANZapine 2.5 MG TABLET PO (13:03)
[2022-02-11] MEDS: Melatonin 3 MG TABLET PO (20:45)
[2022-02-11 21:17] VITALS: BP 112/62; PULSE 97; RESP 18; TEMP 36.7; O2SAT 96
[2022-02-12] MEDS: diphenhydrAMINE HCL 25 MG CAPSULE PO (00:06)
[2022-02-12] MEDS: Acetaminophen 325 MG TABLET 650 MG PO (01:11)
[2022-02-12 09:59] VITALS: BP 110/70; PULSE 106; RESP 16; O2SAT 97
--- NOTE | 2022-02-12 10:03 | PC.NURSE ---
call placed to pharmacy for meds not available in pyxis
[2022-02-12] MEDS: amLODIPine Besylate 10 MG TABLET PO (10:16)
[2022-02-12] MEDS: Divalproex Sodium 250 MG TABLET.DR PO ×2 (10:16→20:26)
[2022-02-12] MEDS: Cyanocobalamin (Vitamin B-12) 100 MCG TABLET PO (10:16)
[2022-02-12] MEDS: OLANZapine ODT 10 MG TAB.RAPDIS 5 MG TRANSLINGU (10:17)
[2022-02-12] MEDS: risperiDONE 0.5 MG TABLET PO ×2 (10:17→20:26)
--- NOTE | 2022-02-12 13:31 | PC.NURSE ---
pt incontinent, washed up and bed linen changed. Patient reposition for comfort, resting at this time, sitter at bedside
[2022-02-12] MEDS: OLANZapine 2.5 MG TABLET PO (13:35)
--- NOTE | 2022-02-12 15:35 | PC.NURSE ---
pt restless in bed, accepting redirection at times. able to reposition herself but requiring assistance at times. pt has been incontinent of urine x2 today, cleaned and repositioned in bed.
--- NOTE | 2022-02-12 20:02 | PC.NURSE ---
assumed care of patient at 1900. patient sitting up eating dinner on stretcher with 1:[address], assisting patient with feeds. patient ambulatory to and from bathroom with PCT. pants provided, patient cleaned up. will continue to monitor.
[2022-02-12] MEDS: Melatonin 3 MG TABLET PO (20:26)
--- NOTE | 2022-02-12 20:29 | PC.NURSE ---
pt tolerated po bedtimes well. administered with pudding
--- NOTE | 2022-02-12 22:11 | PC.NURSE ---
Pt walked to the bathroom with 1x assist. Pt given pericare and Hospital pants put on Pt. Pt walked back to bed with 1x assist. Pt given warm blankets and call galo placed in reach.Bed in lowest position and armed with bed alarm
[2022-02-12 22:18] VITALS: BP 119/60; PULSE 100; RESP 18; TEMP 36.4; O2SAT 94
--- NOTE | 2022-02-12 23:14 | PC.NURSE ---
Pt soiled with urine. Pt given Pat care. New hospital gown and pants put On Pt. Pt walked around 1x assist with walker then walked back to bed. Pt hair brushed and warm blankets given to help Pt get Comfortable. Bed at lowest position and call galo placed in reach
--- NOTE | 2022-02-13 00:03 | PC.NURSE ---
Pt given Pericare after walking around with walker. Pt given small hospital pants and new gown. Pt placed back in bed and resting comfortably. Bed at lowest position and call galo placed in reach
[2022-02-13] MEDS: Acetaminophen 325 MG TABLET 650 MG PO (03:22)
[2022-02-13] MEDS: OLANZapine 5 MG TABLET PO (03:22)
--- NOTE | 2022-02-13 03:27 | PC.NURSE ---
pt ambulating with PCT throughout unit - patient grimacing making faces as if she is in pain. given po tylenol with applesauce. pt also continues to be restless, refusing to lay down to sleep, administered 5mg po zyprexa per providers orders to try to get patient to sleep while it is night time. will continue to monitor.
[2022-02-13 06:48] VITALS: BP 119/71; PULSE 100; RESP 14; TEMP 36.3; O2SAT 98
--- NOTE | 2022-02-13 06:49 | PC.NURSE ---
Pt given tom care. Bed pad changed and Pt gown and pants changed. Pt sat in recliner chair with sitter sitting in front of her. Pt given warm blanket and call galo placed in reach
[2022-02-13 09:46] VITALS: BP 124/74; PULSE 113; RESP 14; TEMP 36.1
[2022-02-13] MEDS: OLANZapine ODT 10 MG TAB.RAPDIS 5 MG TRANSLINGU (10:26)
[2022-02-13] MEDS: risperiDONE 0.5 MG TABLET PO ×2 (10:27→22:02)
[2022-02-13] MEDS: amLODIPine Besylate 10 MG TABLET PO (10:27)
[2022-02-13] MEDS: Divalproex Sodium 250 MG TABLET.DR PO ×2 (10:27→22:03)
[2022-02-13] MEDS: Cyanocobalamin (Vitamin B-12) 100 MCG TABLET PO (10:27)
--- NOTE | 2022-02-13 10:42 | PC.NURSE ---
9 am meds given late as pharmacy had to load all her meds into the PICS
--- NOTE | 2022-02-13 13:38 | MHC.CM.ED ---
Patient remains in ER overflow. [facility] is still willing to offer a bed when there is a bed available. Spoke with [facility] of [facility]. Clinical updates provided via telephone. Janessa will speak to [facility] and get back to . Patient's daughter/HCP, Louise aware. Continue to monitor for d/c needs.
[2022-02-13 20:29] VITALS: BP 103/60; PULSE 74; RESP 14; TEMP 36.8; O2SAT 100
[2022-02-13] MEDS: Melatonin 3 MG TABLET PO (22:02)
--- NOTE | 2022-02-14 00:36 | PC.NURSE ---
Pt soiled with urine, Pat care provided to patient. Bed linens changed, hospital gown and pants put on pt. Pt covered with warm blanket. Fall precautions in place: bed at lowest potion, sitter at bed side, hospital/safety camera is on.
[2022-02-14] MEDS: Acetaminophen 325 MG TABLET 650 MG PO (01:00)
[2022-02-14] MEDS: OLANZapine 5 MG TABLET PO (03:52)
--- NOTE | 2022-02-14 03:58 | PC.NURSE ---
Patient has been restless and agitated for the past two hours despite multiple attempts to redirect and reposition patient and provide a warm for comfort by this com writer and tech. Dr. Lowery notified. prescribed Zyprexa 5 mg PRN x1. Zyprexa administered per MD order. Effect pending.
--- NOTE | 2022-02-14 04:28 | PC.NURSE ---
Patient received Zyprexa 5 mg PO-at present patient is resting comfortably, no further s/s of anxiety/restlessness/agitation toned, RR 14.
[2022-02-14 07:42] VITALS: BP 106/67; PULSE 84; RESP 20; TEMP 36.5; O2SAT 98
--- NOTE | 2022-02-14 07:47 | PC.NURSE ---
Pt sleeping. will attempt to feed her breakfast once she is awake.
[2022-02-14] MEDS: Divalproex Sodium 250 MG TABLET.DR PO ×2 (08:35→20:16)
[2022-02-14] MEDS: amLODIPine Besylate 10 MG TABLET PO (08:36)
[2022-02-14] MEDS: Cyanocobalamin (Vitamin B-12) 100 MCG TABLET PO (08:36)
[2022-02-14] MEDS: risperiDONE 0.5 MG TABLET PO ×2 (08:36→20:16)
[2022-02-14] MEDS: OLANZapine ODT 10 MG TAB.RAPDIS 5 MG TRANSLINGU (08:36)
--- NOTE | 2022-02-14 08:43 | PC.NURSE ---
pt a/o x 1 no sob/laura noted, speaks - mumbles. lungs - cta. heart sounds regular. abd soft and non-tender bs +x 4 quads, pt is eating breakfast. sitter at bedside. avasure camera at bedside. pt is calm and following verbal queues and commands.
--- NOTE | 2022-02-14 09:12 | PC.NURSE ---
Sitter at bedside fed patient. Patient ate 100% of her meal.
--- NOTE | 2022-02-14 14:00 | MHC.CM.ED ---
Patient remains in ER. [facility] is willing to offer a bed when they have a bed available. Still waiting to hear from [facility] if they can accept patient. Continue to monitor for d/c needs.
[2022-02-14] MEDS: OLANZapine 2.5 MG TABLET PO (18:43)
[2022-02-14 19:07] VITALS: BP 112/62; PULSE 109; TEMP 36.6; O2SAT 100
[2022-02-14] MEDS: Melatonin 3 MG TABLET PO (20:17)
[2022-02-15] MEDS: Acetaminophen 325 MG TABLET 650 MG PO (01:05)
--- NOTE | 2022-02-15 03:18 | PC.NURSE ---
Received RN to RN report from Isra COURTNEY. Pt sitting upright in chair with sitter at bedside. Resting comfortably at this time. Will continue to monitor.
--- NOTE | 2022-02-15 05:06 | PC.NURSE ---
Pt remains awake, but calm/cooperative. Occasionally mumbling or talking to herself, playing with her stuffed animals. Sitter at bedside.
[2022-02-15 05:21] VITALS: BP 107/67; PULSE 81; RESP 14; TEMP 36.9; O2SAT 98
--- NOTE | 2022-02-15 05:22 | PC.NURSE ---
Pt Soiled with urine. Pt given pericare. Pt given hospital pants and gown. Pt sitting in chair with sitter and camera nearby call galo placed in reach and Pt given warm blankets
[2022-02-15 08:09] VITALS: BP 118/78; PULSE 75; TEMP 37; O2SAT 100
[2022-02-15] MEDS: Cyanocobalamin (Vitamin B-12) 100 MCG TABLET PO (08:25)
[2022-02-15] MEDS: Divalproex Sodium 250 MG TABLET.DR PO ×2 (08:25→20:17)
[2022-02-15] MEDS: OLANZapine ODT 10 MG TAB.RAPDIS 5 MG TRANSLINGU (08:25)
[2022-02-15] MEDS: amLODIPine Besylate 10 MG TABLET PO (08:25)
[2022-02-15] MEDS: risperiDONE 0.5 MG TABLET PO ×2 (08:26→20:17)
--- NOTE | 2022-02-15 10:04 | PC.NURSE ---
this lyric writer assumed care of this pt at 0700, pt sitting up in bed quietly at the time of assuming care. pt ate 100 % of her breakfast with assistance from tech, ambulated by tech using gait belt, compliant with meds, vss. tech sitting at bedside, eye in the cherrie in use.
--- NOTE | 2022-02-15 11:00 | PC.NURSE ---
incontinent care provided, complete bed change done. pt sitting up in bed, tech at bedside, camera in room.
[2022-02-15] MEDS: OLANZapine 2.5 MG TABLET PO (13:04)
--- NOTE | 2022-02-15 18:38 | PC.NURSE ---
incontinent care provided, complete bed change done. pt up in recliner for supper.
--- NOTE | 2022-02-15 18:57 | PC.NURSE ---
assumed care of pt at 1900, pt sitting up in recliner, tech at bedside assisting pt with dinner.
[2022-02-15 19:09] VITALS: BP 118/85; PULSE 97; RESP 16; TEMP 37.1; O2SAT 98
[2022-02-15] MEDS: Melatonin 3 MG TABLET PO (20:17)
--- NOTE | 2022-02-15 20:20 | PC.NURSE ---
pt alert, sitting in recliner, medicated per provider order.
--- NOTE | 2022-02-15 20:55 | PC.NURSE ---
Pt walked to the bathroom 1x assist pt voided urine. Pt given pericare and new gown and hospital pants put on. Pt assisted back to bed and became agitated. Pt hair brushed to soothe her and Pt calmed down. Pt assisted into bed to lay down. Pt given warm blankets and call galo placed in reach. Bed in lowest position and bed alarm armed.
--- NOTE | 2022-02-15 21:50 | PC.NURSE ---
Pt assited out of bed after trying to get out by herself . Pt walked to the bathroom and voided urine, Pt walked backed to bed and hair brushed until Pt fell asleep. Bed at lowest position and bed alarmed armed.
[2022-02-16 05:26] VITALS: BP 111/69; PULSE 86; RESP 15; TEMP 36.6; O2SAT 99
--- NOTE | 2022-02-16 05:57 | PC.NURSE ---
Assumed care at 00:00. Patient is withdrawn and limited in her communication despite communication in Zimbabwean at bedside. Patient with 1:1 sitter and telesitter. Patient with limited assessment due to limited communication ability. Slept through most of the night with occasional restless episodes. This morning, patient was weepy and grimacing, but unable to express needs despite encouragement in Zimbabwean. She is not endorsing pain when asked. Patient seems to say that I don't see anybody. Discussed with Dr. Bernardo, and ok to give 9am risperidone early. tylenol also attempted to be given as well at this time. Patient now withdrawn and refusing to take any medication at this time. Continues to be asleep again at this time. Will continue to monitor; no meds given at this time.
[2022-02-16] MEDS: amLODIPine Besylate 10 MG TABLET PO (08:58)
[2022-02-16] MEDS: Cyanocobalamin (Vitamin B-12) 100 MCG TABLET PO (08:58)
[2022-02-16] MEDS: Divalproex Sodium 250 MG TABLET.DR PO ×2 (08:58→20:23)
[2022-02-16] MEDS: OLANZapine ODT 10 MG TAB.RAPDIS 5 MG TRANSLINGU (08:58)
[2022-02-16] MEDS: risperiDONE 0.5 MG TABLET PO ×2 (09:00→20:23)
--- NOTE | 2022-02-16 10:16 | PC.NURSE ---
pt ate pudding this am, resistant to most other foods even with encouragement. pt requesting to use bathroom, ambulated to bathroom using walker and standby assist w steady gait. urinated large amount in toilet, then ambulated with pct using walker for approx 15 mins, steady gait with walker and standby assist. appears to be receptive to care. took po medications in pudding without issue.
[2022-02-16] MEDS: OLANZapine 2.5 MG TABLET PO (11:40)
--- NOTE | 2022-02-16 11:42 | PC.NURSE ---
pt inconsolible, able to settle down with interpretter, took po medications with some encouragement no issues, will continue to deescalate pt so that pt may rest safely.
--- NOTE | 2022-02-16 14:08 | MHC.CM.ED ---
Patient remains in ER overflow. [facility] is willing to offer a bed when they have a bed available. Unsure when bed will be available. Still waiting to hear from [facility] if they will be able to offer a bed. Continue to monitor for d/c needs.
[2022-02-16 15:31] VITALS: BP 110/59; PULSE 92; RESP 16; TEMP 36.7; O2SAT 100
--- NOTE | 2022-02-16 18:33 | PC.NURSE ---
pt ate 50 percent of dinner with encouragement. daughter at bedside for visitation. pt appears in good spirits.
[2022-02-16 19:42] VITALS: BP 118/66; PULSE 87; RESP 17; TEMP 36.6; O2SAT 99
--- NOTE | 2022-02-16 20:09 | PC.NURSE ---
Assumed care of pt. Pt resting in no apparent distress. Pts daughter at the bedside and aware of plan of care. Will continue to monitor.
[2022-02-16] MEDS: Melatonin 3 MG TABLET PO (20:23)
--- NOTE | 2022-02-16 22:42 | PC.NURSE ---
Pt incontinent of urine. Pericare provided. Barrier cream applied.
--- NOTE | 2022-02-16 23:22 | PC.NURSE ---
Took over care of patient at 2300. Pt awake, alert/confused. Hx dementia. Jordanian speaking. LS-CTA. No cough or SOB noted. HRR. PP+, no edema. Incontinent of urine per baseline. No c/o or s/s or pain/discomfort. Camera on for patient safety. Will continue to monitor.
[2022-02-17] MEDS: OLANZapine 2.5 MG TABLET PO ×3 (01:02→22:52)
--- NOTE | 2022-02-17 02:14 | PC.NURSE ---
Dr Frances Ham notified pt restless and continually attempting to climb out of bed. Zyprexa 2.5mg ordered and given at 01:02 with some effect. Pt resting quietly. 1:1 at bedside since 01:00. Camera still in place. Will continue to monitor.
[2022-02-17] MEDS: Acetaminophen 325 MG TABLET 650 MG PO (04:32)
[2022-02-17 06:41] VITALS: BP 122/70; PULSE 73; RESP 16; TEMP 36.6; O2SAT 98
--- NOTE | 2022-02-17 07:16 | PC.NURSE ---
Pt soiled in urine, full bed change and repositioned @0717, pt resting quietly in bed.
[2022-02-17] MEDS: OLANZapine ODT 10 MG TAB.RAPDIS 5 MG TRANSLINGU (08:18)
[2022-02-17] MEDS: amLODIPine Besylate 10 MG TABLET PO (08:18)
[2022-02-17] MEDS: Divalproex Sodium 250 MG TABLET.DR PO ×2 (08:19→20:41)
[2022-02-17] MEDS: Cyanocobalamin (Vitamin B-12) 100 MCG TABLET PO (08:19)
[2022-02-17] MEDS: risperiDONE 0.5 MG TABLET PO ×2 (08:19→20:41)
[2022-02-17] MEDS: Melatonin 3 MG TABLET PO (20:41)
--- NOTE | 2022-02-17 21:08 | PC.NURSE ---
Pt ate 100% of their dinner tray.
--- NOTE | 2022-02-17 21:15 | PC.NURSE ---
Pt ambulated in hallway, with x2 assist.
--- NOTE | 2022-02-17 22:45 | PC.NURSE ---
PT becoming very anxious, attempted walking pt and redirecting. Pt attempting to go in other pt rooms when being walked. notified, orders placed.
--- NOTE | 2022-02-18 00:24 | PC.NURSE ---
Pt sitting chair with sitter next to them. Pt is coloring and eating.
--- NOTE | 2022-02-18 02:45 | PC.NURSE ---
Pt moved for chair to bed.
--- NOTE | 2022-02-18 04:10 | PC.NURSE ---
Pt moved from bed to chair.
--- NOTE | 2022-02-18 05:00 | PC.NURSE ---
Pt sitting in chair with tech helping them eat bessy crackers.
[2022-02-18] MEDS: LORazepam 1 MG TABLET PO (06:13)
[2022-02-18 06:53] VITALS: BP 116/73; PULSE 105; RESP 16; TEMP 36.3; O2SAT 95
--- NOTE | 2022-02-18 08:00 | PC.NURSE ---
sitter remains at bedside. pt ate breakfast and is calm at this time.
[2022-02-18] MEDS: OLANZapine ODT 10 MG TAB.RAPDIS 5 MG TRANSLINGU (08:23)
[2022-02-18] MEDS: amLODIPine Besylate 10 MG TABLET PO (08:23)
[2022-02-18] MEDS: Divalproex Sodium 250 MG TABLET.DR PO ×2 (08:24→21:23)
[2022-02-18] MEDS: Cyanocobalamin (Vitamin B-12) 100 MCG TABLET PO (08:24)
[2022-02-18] MEDS: risperiDONE 0.5 MG TABLET PO ×2 (08:24→21:23)
[2022-02-18] MEDS: OLANZapine 2.5 MG TABLET PO ×2 (12:29→21:23)
--- NOTE | 2022-02-18 12:40 | PC.NURSE ---
pt very impacted with stool. carry all driver at bedside for disimpaction. large amount of hard stool removed with moderate amount of soft stool as well. allowing pt to rest. will do fleet enema per carry all driver order.
--- NOTE | 2022-02-18 13:43 | PC.NURSE ---
pt remains sleeping at this time. okay to hold off on enema from coding assistant at this time. no restlessness noted. sitter remains at bedside.
--- NOTE | 2022-02-18 16:20 | PC.NURSE ---
pt continues to sleep in bed. no noted distress at this time. no sitter at bedside d/t no available staff. camera remains on patient at this time.
--- NOTE | 2022-02-18 18:40 | PC.NURSE ---
pt incontinent of urine. bed changed and tom care provided.
[2022-02-18] MEDS: Melatonin 3 MG TABLET PO (21:22)
[2022-02-18] MEDS: Acetaminophen 325 MG TABLET 650 MG PO (21:23)
[2022-02-18 22:43] VITALS: BP 113/72; PULSE 92; RESP 18; O2SAT 99
--- NOTE | 2022-02-19 08:56 | PC.NURSE ---
pt eating breakfast with tech, called pharmacy for missing meds, will medicate patient when meds have been brought to the unit.
[2022-02-19 09:00] VITALS: BP 108/61; PULSE 83; RESP 18; TEMP 36.4; O2SAT 100
[2022-02-19] MEDS: amLODIPine Besylate 10 MG TABLET PO (09:14)
[2022-02-19] MEDS: OLANZapine ODT 10 MG TAB.RAPDIS 5 MG TRANSLINGU (09:14)
[2022-02-19] MEDS: Cyanocobalamin (Vitamin B-12) 100 MCG TABLET PO (09:15)
[2022-02-19] MEDS: Divalproex Sodium Sprinkles 125 MG CAP.DR.SPR 250 MG PO (09:15)
[2022-02-19] MEDS: risperiDONE 0.5 MG TABLET PO ×2 (09:15→21:03)
[2022-02-19] MEDS: OLANZapine 2.5 MG TABLET PO ×4 (09:23→21:03)
--- NOTE | 2022-02-19 09:26 | PC.NURSE ---
patient awake/alert, tech assisted feeding of patient, pt medicated per order- pharmachy changed depakote order to enable this patient to take all meds crushed in pudding, camera intact for patient safety, call galo within reach, will continue to monitor.
--- NOTE | 2022-02-19 10:02 | MHC.CM.ED ---
Addendum entered by Berna Wall 02/19/22 10:14: Left a voicemail at [facility] and faxed clinical information. Original Note: Patient remains in ER overflow. [facility] is willing to offer a bed when they have a bed available. They're unsure when they will have a bed available. Spoke with Janessa at [facility]. They don't have any LTC beds available and she is unsure who would have reached out to patient's daughter/HCP, Louise. However, Janessa is willing to speak to Louise about this. Louise made aware of above and Janessa's contact information provided. Continue to monitor for d/c needs.
--- NOTE | 2022-02-19 11:44 | PC.NURSE ---
patient ambulated with 2 assist to bathroom
--- NOTE | 2022-02-19 12:50 | MHC.CM.ED ---
Received telephone call from Nettie at [facility]. They will not be able to review patient until she has been sitter free. Last sitter documented on 02/18. Continue to monitor for d/c needs.
[2022-02-19] MEDS: Melatonin 3 MG TABLET PO (21:03)
[2022-02-20 00:41] VITALS: BP 112/65; PULSE 81; RESP 18; TEMP 36.5; O2SAT 100
[2022-02-20] MEDS: Acetaminophen 325 MG TABLET 650 MG PO (02:46)
[2022-02-20 07:13] VITALS: BP 142/79; PULSE 81; RESP 20; TEMP 36.6; O2SAT 99
[2022-02-20] MEDS: amLODIPine Besylate 10 MG TABLET PO ×2 (07:49→07:52)
[2022-02-20] MEDS: OLANZapine ODT 10 MG TAB.RAPDIS 5 MG TRANSLINGU (07:49)
[2022-02-20] MEDS: Cyanocobalamin (Vitamin B-12) 100 MCG TABLET PO (07:51)
[2022-02-20] MEDS: OLANZapine 2.5 MG TABLET PO ×5 (07:51→19:58)
[2022-02-20] MEDS: risperiDONE 0.5 MG TABLET PO ×2 (07:52→19:58)
[2022-02-20] MEDS: Divalproex Sodium Sprinkles 125 MG CAP.DR.SPR 250 MG PO ×2 (10:51→19:58)
--- NOTE | 2022-02-20 11:19 | PC.NURSE ---
requires frequent redirection, ate all of breakfast and some applesauce w meds, incontinent of urine x 2 and cleaned w linens changed
[2022-02-20] MEDS: Melatonin 3 MG TABLET PO (19:58)
--- NOTE | 2022-02-20 20:41 | PC.NURSE ---
routine night meds given. constant beekeeper at the bedside. pt is restless, tv is on and warm blankets given
--- NOTE | 2022-02-20 23:46 | PC.NURSE ---
pt sleeping, chest rise and fall equal and unlabored. camera and bed alarm in place for safety. will round frequently for safety precautions
[2022-02-21 00:13] VITALS: BP 131/76; PULSE 81; RESP 17; TEMP 36.4; O2SAT 96
--- NOTE | 2022-02-21 06:05 | PC.NURSE ---
pt slept good thru the night , she was incontinent x 3 with a small bowel movement, she was given a bed bath , with linen changed and richard cunningham, she has a pull up on with a piose pad inside and right back to sleep she went
--- NOTE | 2022-02-21 06:37 | PC.NURSE ---
see downtime sheet for nurses note
[2022-02-21] MEDS: OLANZapine 2.5 MG TABLET PO ×3 (08:43→20:11)
[2022-02-21] MEDS: Divalproex Sodium Sprinkles 125 MG CAP.DR.SPR 250 MG PO ×2 (08:43→20:10)
[2022-02-21] MEDS: amLODIPine Besylate 10 MG TABLET PO (08:43)
[2022-02-21] MEDS: Cyanocobalamin (Vitamin B-12) 100 MCG TABLET PO (08:43)
[2022-02-21] MEDS: OLANZapine ODT 10 MG TAB.RAPDIS 5 MG TRANSLINGU (08:43)
[2022-02-21] MEDS: risperiDONE 0.5 MG TABLET PO ×2 (08:43→20:10)
--- NOTE | 2022-02-21 08:48 | PC.NURSE ---
patient awake/alert, camera intact/bed alarm on, pt being fed by staff, unable to answer questions about pain, call galo within reach, will continue to monitor
[2022-02-21 09:05] VITALS: BP 122/103; PULSE 95; RESP 14; TEMP 35.9; O2SAT 95
--- NOTE | 2022-02-21 15:44 | PC.NURSE ---
patient awake/alert, speaking in filipino- but not coherent as she speaking, pt ate 50% of lunch with assistance of tech, bed alarm intact, camera intact, call galo within reach, pt medicated per order, will continue to monitor
--- NOTE | 2022-02-21 19:06 | PC.NURSE ---
Addendum entered by Janie Chávez RN 02/22/22 03:30: report given to ROZ Carvalho Addendum entered by Janie Chávez RN 02/21/22 20:17: pt is alert and oriented to self. no signs of acute distress notice. breathing equally unlabored close monitoring maintained Original Note: report received from ROZ Amato
[2022-02-21 20:09] VITALS: BP 123/65; PULSE 113; RESP 16; TEMP 36.6; O2SAT 93
[2022-02-21] MEDS: Melatonin 3 MG TABLET PO (20:10)
[2022-02-22] MEDS: Divalproex Sodium Sprinkles 125 MG CAP.DR.SPR 250 MG PO ×2 (10:11→20:46)
[2022-02-22] MEDS: risperiDONE 0.5 MG TABLET PO ×2 (10:13→20:46)
[2022-02-22] MEDS: OLANZapine 2.5 MG TABLET PO ×5 (10:14→20:47)
[2022-02-22] MEDS: Cyanocobalamin (Vitamin B-12) 100 MCG TABLET PO ×2 (10:15→10:19)
[2022-02-22] MEDS: amLODIPine Besylate 10 MG TABLET PO (10:22)
[2022-02-22] MEDS: OLANZapine ODT 10 MG TAB.RAPDIS 5 MG TRANSLINGU (10:28)
[2022-02-22 12:49] VITALS: BP 105/63; PULSE 105; TEMP 36.8; O2SAT 100
--- NOTE | 2022-02-22 13:16 | MHC.CM.ED ---
Patient remains in ER overflow. [facility] might have a female bed available Monday 03/05. Patient's daughter/HCP, Louise aware. Continue to monitor for d/c needs.
[2022-02-22] MEDS: Melatonin 3 MG TABLET PO (20:46)
--- NOTE | 2022-02-22 21:01 | PC.NURSE ---
Patient is alert to self only. VSS. RR 16, unlabored, no s/s of distress noted. Patient medicated per MAY. Camera in on, bed alarm engaged, 1:1 sitter at bedside with pt.
[2022-02-22 22:03] VITALS: BP 134/78; PULSE 90; RESP 20; TEMP 36.6; O2SAT 97
--- NOTE | 2022-02-23 05:29 | PC.NURSE ---
Patient incontinent of urine x1. Bed linens changed, pericare provided, moisture barrier cream applied to buttocks/coccyx. Patient is back to sleep, no s/s of agitation/anxiety noted.
[2022-02-23] MEDS: amLODIPine Besylate 10 MG TABLET PO (10:03)
[2022-02-23] MEDS: risperiDONE 0.5 MG TABLET PO ×2 (10:04→20:37)
[2022-02-23] MEDS: OLANZapine ODT 10 MG TAB.RAPDIS 5 MG TRANSLINGU (10:04)
[2022-02-23] MEDS: Divalproex Sodium Sprinkles 125 MG CAP.DR.SPR 250 MG PO ×2 (10:04→20:36)
[2022-02-23] MEDS: Cyanocobalamin (Vitamin B-12) 100 MCG TABLET PO (10:04)
[2022-02-23] MEDS: OLANZapine 2.5 MG TABLET PO ×3 (10:04→20:37)
[2022-02-23 10:07] VITALS: BP 121/70; PULSE 71; O2SAT 98
--- NOTE | 2022-02-23 10:26 | PC.NURSE ---
clean and change ,eating breakfast .
--- NOTE | 2022-02-23 12:37 | PC.NURSE ---
pt restless, agitated, scratching and hitting at staff. Per Laura, DEWATERER OPERATOR - on to give Zyprexa 2.5 early at this time instead of at 1400.
[2022-02-23] MEDS: Melatonin 3 MG TABLET PO (20:37)
[2022-02-23 23:20] VITALS: RESP 16
--- NOTE | 2022-02-24 07:41 | PC.NURSE ---
Pt was incontinent of urine, full bed changed and repositioned @0730 Pt ate 100% of breakfast
--- NOTE | 2022-02-24 08:09 | PC.NURSE ---
INCONT OF URINE. CHANGED
[2022-02-24 09:15] VITALS: BP 114/68; PULSE 102; RESP 16; O2SAT 100
[2022-02-24] MEDS: amLODIPine Besylate 10 MG TABLET PO (09:17)
[2022-02-24] MEDS: Divalproex Sodium Sprinkles 125 MG CAP.DR.SPR 250 MG PO ×2 (09:17→20:18)
[2022-02-24] MEDS: risperiDONE 0.5 MG TABLET PO ×2 (09:17→20:19)
[2022-02-24] MEDS: OLANZapine ODT 10 MG TAB.RAPDIS 5 MG TRANSLINGU (09:17)
[2022-02-24] MEDS: OLANZapine 2.5 MG TABLET PO ×3 (09:18→20:19)
--- NOTE | 2022-02-24 13:06 | PC.NURSE ---
pt alert, sitting up in bed, medicated per provider order.
[2022-02-24] MEDS: Melatonin 3 MG TABLET PO (20:18)
--- NOTE | 2022-02-24 20:31 | PC.NURSE ---
medicated per provider order.
[2022-02-24] MEDS: OLANZapine 10 MG VIAL 2.5 MG IM (22:09)
[2022-02-24 23:00] VITALS: BP 106/84; PULSE 109; RESP 18; TEMP 37.1; O2SAT 100
[2022-02-25] MEDS: Divalproex Sodium Sprinkles 125 MG CAP.DR.SPR 250 MG PO ×2 (09:53→10:03)
[2022-02-25] MEDS: risperiDONE 0.5 MG TABLET PO ×2 (10:02→21:31)
[2022-02-25] MEDS: amLODIPine Besylate 10 MG TABLET PO (10:02)
[2022-02-25] MEDS: OLANZapine ODT 10 MG TAB.RAPDIS 5 MG TRANSLINGU (10:02)
[2022-02-25] MEDS: OLANZapine 2.5 MG TABLET PO ×2 (10:05→17:12)
--- NOTE | 2022-02-25 11:15 | PC.NURSE ---
assumed care of pt at 1100, pt sleeping - 0900 medication held.
--- NOTE | 2022-02-25 14:53 | PC.NURSE ---
pt sleepy, tearful when roused, vss, eating lunch with encouragement. medications held until pt is more awake.
[2022-02-25 14:55] VITALS: BP 124/72; PULSE 86; RESP 16; TEMP 36.8
[2022-02-25] MEDS: Cyanocobalamin (Vitamin B-12) 100 MCG TABLET PO (17:12)
--- NOTE | 2022-02-25 17:15 | PC.NURSE ---
medicated per provider order.
--- NOTE | 2022-02-25 18:11 | PC.NURSE ---
Pt placed in wheelchair and rolled around unit. Pt placed back into room and tech informed this RN of pt fall. Pt assisted BTB and imaging obtained. Beronica TEJEDA aware
[2022-02-25] MEDS: Melatonin 3 MG TABLET PO (21:32)
--- NOTE | 2022-02-25 22:51 | PC.NURSE ---
pt incontinent of urine and stool, cleaned and changed by tech, pt ate 25% of lunch and dinner today w assistance, pt remained sleepy and tearful throughout the day, pt currently sleeping comfortably.
--- NOTE | 2022-02-26 03:38 | PC.NURSE ---
PT SLEEPING COMFORTABLY ON STRETCHER. NO APPARENT DISTRESS. RESPIRATIONS EVEN AND UNLABORED. WITHIN VIEW OF NURSES STATION, CAMERA IN ROOM. WILL CONTINUE TO MONITOR
--- NOTE | 2022-02-26 04:25 | PC.NURSE ---
late note: pt ate 25% of dinner and drank half of her ensure.
[2022-02-26 05:10] VITALS: BP 114/87; PULSE 96; RESP 18; TEMP 36.8; O2SAT 97
[2022-02-26] MEDS: Acetaminophen 325 MG TABLET 650 MG PO (07:00)
[2022-02-26] MEDS: amLODIPine Besylate 10 MG TABLET PO (07:48)
[2022-02-26] MEDS: Divalproex Sodium Sprinkles 125 MG CAP.DR.SPR 250 MG PO ×2 (07:48→20:05)
[2022-02-26] MEDS: OLANZapine ODT 10 MG TAB.RAPDIS 5 MG TRANSLINGU (07:48)
[2022-02-26] MEDS: OLANZapine 2.5 MG TABLET PO ×4 (07:48→20:05)
[2022-02-26] MEDS: risperiDONE 0.5 MG TABLET PO ×2 (07:48→20:05)
[2022-02-26] MEDS: Cyanocobalamin (Vitamin B-12) 100 MCG TABLET PO (08:00)
--- NOTE | 2022-02-26 13:25 | MHC.CM.ED ---
Patient remains in ER. [facility]. Received voicemail from patient's daughter/HCP, Louise, asking why patient was moved from overflow unit back to the ER and requesting a letter for [employer] saying patient will not be returning home so patient's apartment can be transferred to Louise's name. Attempted to speak with Louise via telephone at [phone]. Left message requesting return telephone call. Continue to monitor for d/c needs.
[2022-02-26] MEDS: Melatonin 3 MG TABLET PO (20:05)
--- NOTE | 2022-02-26 21:23 | PC.NURSE ---
Pt cleaned and changed, linen changed.
[2022-02-26] MEDS: LORazepam 1 MG TABLET PO (23:32)
[2022-02-27 06:00] VITALS: BP 107/56; PULSE 67; TEMP 36.4
[2022-02-27 08:06] VITALS: BP 92/53; PULSE 71; RESP 13; TEMP 36.4
[2022-02-27 09:53] VITALS: BP 127/66; PULSE 77; RESP 13; TEMP 36.6; O2SAT 100
[2022-02-27] MEDS: Divalproex Sodium Sprinkles 125 MG CAP.DR.SPR 250 MG PO ×2 (10:01→21:32)
[2022-02-27] MEDS: Cyanocobalamin (Vitamin B-12) 100 MCG TABLET PO (10:01)
[2022-02-27] MEDS: risperiDONE 0.5 MG TABLET PO ×2 (10:01→21:31)
[2022-02-27] MEDS: amLODIPine Besylate 10 MG TABLET PO (10:01)
[2022-02-27] MEDS: OLANZapine ODT 10 MG TAB.RAPDIS 5 MG TRANSLINGU (10:02)
[2022-02-27] MEDS: OLANZapine 2.5 MG TABLET PO ×4 (10:02→21:32)
[2022-02-27 11:33] LABS: Appearance Urine Cloudy; Color Urine Yellow; Glucose Urine UA Negative (Negative); Leukocyte Esterase Urine Moderate (2+) (Negative); Nitrite Urine Positive (Negative); UMIC TRIGGER UACC YES; Urine Blood Negative (Negative); Urine Ketones Negative (Negative); Urine Protein Negative (Neg-Trace)
[2022-02-27 11:38] LABS: Bacteria Urine 4+ (None Seen); Hyaline Casts Urine 0-2 /LPF (0-2); RBC Urine 0-2 /HPF (0-2); Squamous Epithelial Cell Urine 0-2 /HPF (0-2); UACC Culture Trigger YES; WBC Urine >50 /HPF (0-5)
--- NOTE | 2022-02-27 12:16 | MHC.CM.ED ---
Patient remains in ER. No bed available today at [facility]. Continue to monitor for d/c needs.
[2022-02-27 14:52] VITALS: BP 124/66; PULSE 96; RESP 12; TEMP 36.7; O2SAT 100
--- NOTE | 2022-02-27 17:58 | PC.NURSE ---
Patient changed and cleaned. Patient ate some vanilla pudding with zyprexa crushed.
[2022-02-27] MEDS: Melatonin 3 MG TABLET PO (21:31)
[2022-02-27] MEDS: Docusate Sodium 100 MG/10 ML LIQUID PO (21:32)
--- NOTE | 2022-02-28 00:10 | PC.NURSE ---
This configuration technician checked patient bed pad and patient is dry.
--- NOTE | 2022-02-28 03:07 | PC.NURSE ---
This pharmacist technician at 03:00 turned over bed and patient care as patient was wet. Completed ADL's and put a clean deloris. Boost patient up in bed with preschool assistant director from sitter. Covered patient with two warm blankets.
[2022-02-28 05:53] VITALS: BP 116/80; PULSE 99; RESP 16; TEMP 36.1; O2SAT 95
[2022-02-28 09:42] VITALS: BP 112/71; PULSE 93; RESP 16; TEMP 36.4; O2SAT 100
--- NOTE | 2022-02-28 10:02 | PC.NURSE ---
Pt was given a complete bed bath and repositioned.
[2022-02-28] MEDS: Cyanocobalamin (Vitamin B-12) 100 MCG TABLET PO (10:16)
[2022-02-28] MEDS: OLANZapine ODT 10 MG TAB.RAPDIS 5 MG TRANSLINGU (10:16)
[2022-02-28] MEDS: OLANZapine 2.5 MG TABLET PO ×4 (10:17→21:03)
[2022-02-28] MEDS: amLODIPine Besylate 10 MG TABLET PO (10:19)
[2022-02-28] MEDS: Divalproex Sodium Sprinkles 125 MG CAP.DR.SPR 250 MG PO ×2 (10:19→21:04)
[2022-02-28] MEDS: risperiDONE 0.5 MG TABLET PO ×2 (10:20→21:04)
--- NOTE | 2022-02-28 11:13 | PC.NURSE ---
assumed care of pt at 1100, pt sleeping, RR even and unlabored, camera at bedside.
[2022-02-28 13:42] VITALS: BP 101/52; PULSE 72; RESP 16; O2SAT 98
--- NOTE | 2022-02-28 14:33 | PC.NURSE ---
pt remains sleeping, some difficulty rousing, vss, 1400 medication held.
[2022-02-28] MEDS: Melatonin 3 MG TABLET PO (21:02)
--- NOTE | 2022-02-28 21:09 | PC.NURSE ---
Assumed care of pt. at 1900. Pt. sitting up in bed with sitter at beside. Pt. eating dinner. Pt. took nightime medications with applesauce. Pt. observed nibbling on her stuffed animal. Redirected and drank some applejuice and ate more applesauce.
[2022-02-28 23:58] VITALS: BP 115/76; PULSE 98; RESP 16; TEMP 36.4; O2SAT 95
--- NOTE | 2022-03-01 00:24 | PC.NURSE ---
This communication electronic technician checked patient and patient at the moment is dry. Gave patient turkey sandwich and sitter assisting as needed.
[2022-03-01 06:00] VITALS: BP 112/72; PULSE 95; RESP 16; TEMP 36.6; O2SAT 95
--- NOTE | 2022-03-01 06:13 | PC.NURSE ---
Pt. sitting in bed awake most of the night. Pt. ambulated around the ED with tech at side. Pt. was wet around 0500, techs cleaned pt. and provided dry bedding. Pt. currently sitting up in bed with 1:1 at bedside.
[2022-03-01] MEDS: amLODIPine Besylate 10 MG TABLET PO (08:08)
[2022-03-01] MEDS: Cyanocobalamin (Vitamin B-12) 100 MCG TABLET PO (08:08)
[2022-03-01] MEDS: risperiDONE 0.5 MG TABLET PO ×2 (08:08→20:30)
[2022-03-01] MEDS: OLANZapine ODT 10 MG TAB.RAPDIS 5 MG TRANSLINGU (08:08)
[2022-03-01] MEDS: OLANZapine 2.5 MG TABLET PO ×3 (08:08→20:30)
[2022-03-01] MEDS: Divalproex Sodium Sprinkles 125 MG CAP.DR.SPR 250 MG PO ×2 (08:09→20:30)
[2022-03-01 08:14] VITALS: BP 130/83; PULSE 95; RESP 18; TEMP 36.3; O2SAT 97
--- NOTE | 2022-03-01 08:14 | PC.NURSE ---
patient awake/alert to baseline, vss, pt feeding assisted, camera in place for patient safety, fall precautions intact, pt medicated per order, will continue to monitor
--- NOTE | 2022-03-01 10:36 | PC.NURSE ---
pt currently sleeping, fall precautions intact, camera monitor on
--- NOTE | 2022-03-01 13:15 | PC.NURSE ---
pt awake to baseline, pt active and attempting to get oob, pt redirected, tv put on kinyarwanda station, pt assisted with PO, fall precautions intact, will continue to monitor.
--- NOTE | 2022-03-01 15:20 | PC.NURSE ---
patient awake/alert to baseline-speaking in surinamese, pt eating lunch with assistance, medicated per order, fall precautions intact, camera monitor intact, will continue to monitor
--- NOTE | 2022-03-01 15:28 | PC.NURSE ---
THIS PCT ASSUMED CARE OF PT AT 1500 ,PT WAS INCONTINENT OF URINE ,BED BATH GIVEN AND BEDDING CHANGE ,SITTER AT BEDSIDE .
[2022-03-01 15:34] VITALS: BP 113/64; PULSE 90; RESP 15; TEMP 36.2; O2SAT 100
--- NOTE | 2022-03-01 18:40 | PC.NURSE ---
patient woke to verbal stimulus for dinner, feed assisted, fall precautions remain intact, call galo within reach, will continue to monitor
[2022-03-01] MEDS: Melatonin 3 MG TABLET PO (20:30)
--- NOTE | 2022-03-01 21:08 | PC.NURSE ---
PT WAS A 1:1 FEED ATE 100 % OF MEAL ,DRANK 1 ENSURE AND 2 CARTON OF MILK ,PT WAS INC OF URINE AT 2100 ,CARE GIVEN PT WAS FED A VANILLA PUDDING .
[2022-03-01 21:30] VITALS: BP 143/90; PULSE 132; RESP 22; O2SAT 98
--- NOTE | 2022-03-02 00:09 | PC.NURSE ---
pt sleeping positioned on back at this time. camera and bed alarm in place at this time
[2022-03-02] MEDS: Acetaminophen 325 MG TABLET 650 MG PO (00:51)
--- NOTE | 2022-03-02 00:58 | PC.NURSE ---
simona assembly machine feeder in place. informed this rn pt was crying looks to be in pain. pts facial expressions showed wincing. pt given prn dose of acetaminophen in pudding. pt took medication according to shemar cabrera. simona remains in place at this time
--- NOTE | 2022-03-02 02:02 | PC.NURSE ---
pt brought to the pod given a shower, washed her hair and tom care given. pt returned to her room given a snack and put back to bed.
[2022-03-02 08:20] VITALS: BP 109/77; PULSE 92; RESP 16; TEMP 36.4; O2SAT 99
[2022-03-02] MEDS: Divalproex Sodium Sprinkles 125 MG CAP.DR.SPR 250 MG PO ×2 (08:22→20:12)
[2022-03-02] MEDS: risperiDONE 0.5 MG TABLET PO ×2 (08:22→20:11)
[2022-03-02] MEDS: Cyanocobalamin (Vitamin B-12) 100 MCG TABLET PO (08:22)
[2022-03-02] MEDS: OLANZapine ODT 10 MG TAB.RAPDIS 5 MG TRANSLINGU (08:22)
[2022-03-02] MEDS: OLANZapine 2.5 MG TABLET PO ×4 (08:23→20:12)
[2022-03-02] MEDS: amLODIPine Besylate 10 MG TABLET PO (08:23)
[2022-03-02 09:00] VITALS: BP 110/66; PULSE 96; RESP 16; TEMP 36.7; O2SAT 99
[2022-03-02] MEDS: Melatonin 3 MG TABLET PO (20:11)
[2022-03-02 23:30] VITALS: BP 140/83; PULSE 86; RESP 17; TEMP 36.3; O2SAT 100
--- NOTE | 2022-03-02 23:33 | PC.NURSE ---
Addendum entered by Nabila Cardenas 03/02/22 23:35: Pt soiled with urine. Pt given tom care. Nightgown changed. Pt ambulated out of bed while bed linen changed. Pt assisted back into bed and given warm blankets, call galo placed in reach. Bed placed in lowest position and armed. Pt has 1:1 sitter bedside Original Note: Pt soiled with urine. Pt given tom care. Nightgown changed. Pt ambulated out of bed while bed linen changed. Pt assitd back into bed and given warm blankets, call galo placed in reach. Bed placed in lowest position and armed. Pt has 1:1 sitter bedside
--- NOTE | 2022-03-03 01:27 | PC.NURSE ---
Checked PT for incontinence PT dry at the moment. PT requested food. PT given pudding with assistance from 1:1 sitter.
--- NOTE | 2022-03-03 04:25 | MHC.EDTECH ---
Pt soiled with urine. Pt given pericare and pull up replaced. Pt restless. Hair brushed and back rubbed until Pt calmed down. Pt asleep in bed at lowest position. Bed alarm armed and Pt call galo placed in reach. 1:1 sitter bedside
--- NOTE | 2022-03-03 05:28 | PC.NURSE ---
Pt sleeping in no apparent distress. Breaths are even and unlabored. 1:1 sitter at bedside. Will continue to monitor.
[2022-03-03] MEDS: risperiDONE 0.5 MG TABLET PO ×2 (07:33→20:24)
[2022-03-03] MEDS: OLANZapine 2.5 MG TABLET PO ×4 (07:33→20:25)
[2022-03-03] MEDS: Divalproex Sodium Sprinkles 125 MG CAP.DR.SPR 250 MG PO ×2 (07:33→20:24)
[2022-03-03] MEDS: Cyanocobalamin (Vitamin B-12) 100 MCG TABLET PO (07:34)
[2022-03-03] MEDS: OLANZapine ODT 10 MG TAB.RAPDIS 5 MG TRANSLINGU (07:34)
[2022-03-03] MEDS: amLODIPine Besylate 10 MG TABLET PO (07:35)
[2022-03-03 07:44] VITALS: BP 138/88; PULSE 91; RESP 16; O2SAT 99
--- NOTE | 2022-03-03 07:46 | PC.NURSE ---
patient remains 1:1 . calm and cooperative with taking medication this AM .jayme . heart rate regular at 90 beats per minute . breathing even and unlabored . lungs clear throughout . skin pink warm and dry . patient consumed oatmeal and pudding and drank her coffee with assistance of 1:1 tech . patient aware of plan of care .
[2022-03-03 15:59] VITALS: BP 128/77; PULSE 103; RESP 18; O2SAT 99
--- NOTE | 2022-03-03 16:01 | PC.NURSE ---
patient given a bed bath and linen changed . incontinent of a large amount of urine . patient aware of plan of care .
--- NOTE | 2022-03-03 16:10 | MHC.EDTECH ---
at 1500 pt was incontinent of urine ,care given bedding change ,pt was fed ate a pbj sandwich ,a pudding had an ensure and a carton of milk .
[2022-03-03] MEDS: Melatonin 3 MG TABLET PO (20:24)
[2022-03-03 23:27] VITALS: BP 122/76; PULSE 103; RESP 16; TEMP 36.5; O2SAT 98
--- NOTE | 2022-03-04 02:48 | PC.NURSE ---
patient cleaned up and linens changed. soaked in urine. warm blankets provided
[2022-03-04 02:51] VITALS: BP 109/71; PULSE 86; RESP 16; O2SAT 97
--- NOTE | 2022-03-04 04:52 | PC.NURSE ---
Pt awake at the bedside in no apparent distress. Will continue to monitor.
[2022-03-04 07:30] VITALS: BP 125/74; PULSE 88; O2SAT 100
[2022-03-04] MEDS: OLANZapine 2.5 MG TABLET PO ×3 (07:50→21:09)
[2022-03-04] MEDS: risperiDONE 0.5 MG TABLET PO ×2 (07:55→21:09)
[2022-03-04] MEDS: OLANZapine ODT 10 MG TAB.RAPDIS 5 MG TRANSLINGU (07:55)
[2022-03-04] MEDS: Divalproex Sodium Sprinkles 125 MG CAP.DR.SPR 250 MG PO ×2 (07:55→21:09)
[2022-03-04] MEDS: amLODIPine Besylate 10 MG TABLET PO (07:55)
[2022-03-04] MEDS: Cyanocobalamin (Vitamin B-12) 100 MCG TABLET PO (07:56)
--- NOTE | 2022-03-04 08:27 | PC.NURSE ---
Addendum entered by Anh Hubbard 03/04/22 09:29: patient reposition to left Original Note: patient clean and wash , complete bed change . patient ate all her breakfast .
[2022-03-04] MEDS: Melatonin 3 MG TABLET PO (21:09)
[2022-03-04 23:12] VITALS: BP 119/76; PULSE 106; RESP 16; TEMP 36.7; O2SAT 100
[2022-03-05] MEDS: risperiDONE 0.5 MG TABLET PO ×2 (07:46→20:16)
[2022-03-05] MEDS: amLODIPine Besylate 10 MG TABLET PO (07:46)
[2022-03-05] MEDS: Divalproex Sodium Sprinkles 125 MG CAP.DR.SPR 250 MG PO ×2 (07:46→20:16)
[2022-03-05] MEDS: OLANZapine ODT 10 MG TAB.RAPDIS 5 MG TRANSLINGU (07:47)
[2022-03-05] MEDS: OLANZapine 2.5 MG TABLET PO ×4 (07:50→20:16)
--- NOTE | 2022-03-05 08:03 | PC.NURSE ---
ate most of her breakfast, took her meds, pleasantly confused and nad
[2022-03-05 08:29] VITALS: BP 128/75; PULSE 83; RESP 16; O2SAT 98
[2022-03-05] MEDS: Cyanocobalamin (Vitamin B-12) 100 MCG TABLET PO (09:21)
--- NOTE | 2022-03-05 13:23 | MHC.CM.PN ---
Update on bed availability sent to [facility] via [facility] at 1215. Awaiting response. CM spoke with daughter, Louise and updated her. Presently still waiting for bed. CM to follow for d/c needs.
--- NOTE | 2022-03-05 15:42 | PC.NURSE ---
Pt continues to remain in the ED for a bedsearch, she is currently resting on a bed, she ate 75% of her lunch
[2022-03-05] MEDS: Melatonin 3 MG TABLET PO (20:16)
--- NOTE | 2022-03-05 20:49 | PC.NURSE ---
Addendum entered by Shae Abrams 03/05/22 20:51: pt ate turkey sandwhich, pudding, applesauce, milk and ice cream for dinner Original Note: Pt resting on hospital bed. This RN sat with pt and fed her nighttime medications per MAR as well as her dinner. She at about 90% of her dinner and was able to take all medications without issue
[2022-03-05 23:05] VITALS: BP 110/78; PULSE 90; RESP 16; TEMP 36.6; O2SAT 96
--- NOTE | 2022-03-06 03:20 | PC.NURSE ---
Incontinent care provided. PT repositioned.
--- NOTE | 2022-03-06 05:58 | PC.NURSE ---
PT awake, calm. Sitting in hospital bed. No apparent distress. Will continue to observe.
[2022-03-06] MEDS: Divalproex Sodium Sprinkles 125 MG CAP.DR.SPR 250 MG PO (09:08)
[2022-03-06] MEDS: amLODIPine Besylate 10 MG TABLET PO (09:08)
[2022-03-06] MEDS: risperiDONE 0.5 MG TABLET PO (09:09)
[2022-03-06] MEDS: OLANZapine ODT 10 MG TAB.RAPDIS 5 MG TRANSLINGU (09:09)
--- NOTE | 2022-03-06 09:57 | MHC.CM.ED ---
Addendum entered by Berna Wall 03/06/22 13:22: Patient's daughter/HCP, Louise is at bedside. Update given. Original Note: Patient remains in ER. [facility] doesn't have a bed at this time. Possibly one available in 1 week. [facility]. [facility] and [facility] do not have any LTC beds available. Continue to monitor for d/c needs.
[2022-03-06 14:04] VITALS: PULSE 62; RESP 14; O2SAT 98
--- NOTE | 2022-03-06 14:14 | PC.NURSE ---
pt changed and repositioned, daughter in to visit for lunch. pt tolerated breakfast. will be going to facility at some point today
--- NOTE | 2022-03-06 14:19 | MHC.CM.ED ---
[facility] is able to offer a bed if repeat Covid swab is negative. Covid swab is pending at this time. If negative, patient can leave at 4pm. Karen NAJERA booked. Med nec in chart. Patient, Lenny Gil RN and Jyotsna TEJEDA aware. Continue to monitor for d/c needs.
[2022-03-06 14:28] LABS: COVID-19 Test Negative (Negative); IDNOW Serial# 9DB6401D
== END 2022-03-06 15:00 | disposition skilled nursing facility (03) ==
PROVIDERS: Nurse Practitioner Family; Physician Assistant; Physician Assistant Medical; Emergency Provider Emergency Medicine; PCP Internal Medicine
DX: N39.0 Urinary tract infection, site not specified (principal); B96.20 Unspecified Escherichia coli [E. coli] as the cause of diseases classified elsewhere; F03.911 Unspecified dementia, unspecified severity, with agitation; R41.0 Disorientation, unspecified; Z91.81 History of falling; Z20.822 Contact with and (suspected) exposure to COVID-19; Z79.899 Other long term (current) drug therapy
CPT/HCPCS: 0241U; 36415; 70450; 71045; 71250; 72125; 73502; 74176; 80048; 80053; 81001; 81003; 83605; 84484; 85025; 87086; 87088; 87186; 87635; 93005; 96361; 96372; 96374; 96375; 99285; J1200; J2270

== ENCOUNTER 2022-03-23 17:05 | Emergency (ER) | payer MEDICAID, SELFPAY ==
--- NOTE | ~2022-03-23 | CT_ITS ---
EXAMINATION: CT CHEST, ABDOMEN AND PELVIS WITH CONTRAST. CLINICAL INFORMATION: Fall. Chest trauma. Abdominal trauma. Right hip trauma. COMPARISON: CT chest, abdomen, and pelvis from 02/10/2022. TECHNIQUE: Multidetector volumetric imaging was performed from the thoracic inlet to the pubic symphysis following the administration of 85 mL Omnipaque 350 intravenous contrast. Sagittal and coronal reformatted images were obtained on the technologist workstation. In addition, thin section, high resolution reconstruction, targeted reformatted images through the thoracic and lumbar spine were obtained with coronal and sagittal high resolution reformatted images as well. This CT examination was performed using dose optimization techniques as appropriate, variously including the following: *Automated exposure control. *Adjustment of mA and/or kV according to patient size (this includes techniques or standardized protocols for targeted exams where dose is matched to indication/reason for exam; i.e. extremities or head). *Use of iterative reconstruction technique. DLP: 623 mGy-cm FINDINGS: CHEST: Lungs: No diffuse or focal lung parenchymal abnormalities. No pleural effusion or pneumothorax. The airways remain patent. Mediastinum: The cardiac structures are normal in appearance. No mediastinal free fluid or gas. No pericardial effusion. No hilar, mediastinal, or axillary lymphadenopathy. ABDOMEN/PELVIS: Liver, Biliary Ducts, and Gallbladder: The liver is normal in size and attenuation without focal hepatic lesions. Status post cholecystectomy. The common bile duct measures up to 0.8 cm in diameter, similar to prior exam (potentially a normal finding in the setting of prior papillotomy). Mild intrahepatic biliary ductal dilatation. Pancreas: The pancreas is normal in appearance. Adrenal Glands: The adrenal glands are normal in appearance. Spleen: The spleen is normal in appearance. Kidneys and Ureters: The kidneys demonstrate symmetric nephrograms without evidence of nephrolithiasis. Moderate bilateral hydronephrosis and hydroureter. No ureterolithiasis. Urinary Bladder: The urinary bladder is partially moderately distended without focal wall thickening. No bladder calculi are noted. Gastrointestinal System: The stomach is decompressed and therefore not well evaluated on this exam. The small bowel is of normal caliber without regions of abnormal wall enhancement. Prominent distention of the rectum with mild perirectal fat stranding. Moderate stool burden throughout the remainder of the colon. No demonstrated focal wall thickening. Normal appendix. Genitourinary: No demonstrated adnexal soft tissue masses. Intra-abdominal and Retroperitoneal Spaces: No intra-abdominal free fluid collections or gas. No mesenteric, retroperitoneal, or inguinal lymphadenopathy. VASCULATURE: No evidence of traumatic aortic injury. The aorta is normal in contour and caliber. Mildly prominent splenic varices with partial calcification. Musculoskeletal: No acute fractures of the clavicles, scapulae, shoulders, ribs, thoracolumbar spine, pelvis, or hips. Partially healed fractures of the lateral aspect of the right 7th-10th ribs with bony callus formation. Moderate motion degradation partially limits evaluation of the sternal body. Moderate multilevel degenerative changes of the spine. Straightening of the normal thoracic kyphosis. Moderate right convex curvature of the thoracic spine. No lytic or sclerotic osseous lesions demonstrated. Moderate anasarca. No soft tissue masses demonstrated. CT/CT abdomen pelvis w IV con IMPRESSION: 1. No evidence of acute traumatic injury to the chest, abdomen, pelvis, or thoracolumbar spine. 2. Partially healed fractures of the lateral aspect of the right 7th-10th ribs. 3. Moderate bilateral hydronephrosis and hydroureter. No demonstrated ureterolithiasis. 4. Prominent distention of the rectum with mild perirectal fat stranding as may be seen with stercoral colitis. Moderate stool burden throughout the remainder of the colon.
--- NOTE | ~2022-03-23 | CT_ITS ---
EXAMINATION: CT HEAD WITHOUT CONTRAST CT CERVICAL SPINE WITHOUT CONTRAST CLINICAL INFORMATION: Fall. Head and neck strain. COMPARISON: CT head and cervical spine from 02/08/2022. TECHNIQUE: Contiguous axial imaging was performed from the skull base to vertex without intravenous administration of contrast. Contiguous axial imaging was performed from the upper chest through the skull base without intravenous administration of contrast. Coronal and sagittal reformats were obtained at the acquisition workstation. This CT examination was performed using dose optimization techniques as appropriate, variously including the following: *Automated exposure control. *Adjustment of mA and/or kV according to patient size (this includes techniques or standardized protocols for targeted exams where dose is matched to indication/reason for exam; i.e. extremities or head). *Use of iterative reconstruction technique. DLP: 868 mGy-cm FINDINGS: Head: There is no evidence of acute intracranial hemorrhage or edematous territorial infarction. De Leon-white matter differentiation is preserved. Scattered and partially confluent hypoattenuation in the periventricular and deep white matter are consistent with moderate microangiopathy. Proportional prominence of the ventricles and sulcal spaces without evidence of obstructive hydrocephalus. No abnormal mass effect or midline shift. No extra-axial fluid collections. Depressed fracture of the right zygomatic arch. Moderate soft tissue edema/hematoma lateral and inferior to the right zygomatic arch. No radiopaque foreign bodies. No acute osseous calvarial abnormalities. Mild mucosal thickening of the paranasal sinuses. The mastoid air cells and middle ear cavities are clear. Cervical Spine: The atlantooccipital and atlantoaxial articulations remain well aligned. Mild left convex curvature of the cervical spine. Reversal the normal cervical lordosis. Mild degenerative anterolisthesis of C4 on C5. No evidence of acute fracture or subluxation. The vertebral body heights are maintained. Advanced degenerative disc disease at C5-C6 and C6-C7. Moderate degenerative disc disease at all additional cervical levels. Facet and uncovertebral joint arthropathy leads osseous encroachment on the neural foramina from C3-T1. There is no prevertebral soft tissue swelling. The thyroid gland and remaining cervical soft tissues are normal in appearance. The lung apices demonstrate no abnormalities. CT/CT cervical spine wo IV con IMPRESSION: 1. No evidence of acute intracranial hemorrhage or edematous territorial infarction. Moderate underlying microangiopathy and generalized cerebral volume loss. 2. No evidence of acute fracture or traumatic subluxation of the cervical spine. Moderate multilevel degenerative spondyloarthropathy of the cervical spine. 3. Depressed fracture of the right zygomatic arch with surrounding soft tissue edema/hematoma.
--- NOTE | ~2022-03-23 | XR_ITS ---
EXAMINATION: RIGHT FEMUR, RIGHT TIBIA AND FIBULA. CLINICAL INFORMATION: Unable to straighten legs. Pain. COMPARISON: None TECHNIQUE: Right tibia and fibula 2 views. Right femur 2 views. FINDINGS: Right tibia and fibula: There is no visible fracture,, periosteal thickening or soft tissue swelling. Visualized ankle joint and the knee joint appears unremarkable. Right femur: No gross bony deformity seen. No soft tissue swelling seen. There is no joint effusion. XR/XR femur RT 2V IMPRESSION: 1. Unremarkable right tibia and fibula exam. 2. Unremarkable right femur exam.
--- NOTE | ~2022-03-23 | XR_ITS ---
EXAMINATION: RIGHT FEMUR, RIGHT TIBIA AND FIBULA. CLINICAL INFORMATION: Unable to straighten legs. Pain. COMPARISON: None TECHNIQUE: Right tibia and fibula 2 views. Right femur 2 views. FINDINGS: Right tibia and fibula: There is no visible fracture,, periosteal thickening or soft tissue swelling. Visualized ankle joint and the knee joint appears unremarkable. Right femur: No gross bony deformity seen. No soft tissue swelling seen. There is no joint effusion. XR/XR tibia fibula RT 2V IMPRESSION: 1. Unremarkable right tibia and fibula exam. 2. Unremarkable right femur exam.
--- NOTE | ~2022-03-23 | XR_ITS ---
EXAMINATION: XR HIP, RIGHT CLINICAL INFORMATION: Right hip pain COMPARISON: Pelvis and right hip radiographs 02/25/2022 TECHNIQUE: AP view of the right hip. FINDINGS: No acute fracture or dislocation identified on limited single AP projection view. Right hip joint space is maintained. XR/XR hip RT 1V IMPRESSION: No acute osseous injury identified on limited single view exam.
--- NOTE | 2022-03-23 17:21 | ED_ITS ---
HPI - Fall General Chief Complaint: Fall Stated Complaint: FALL W HEADSTRIKE Time Seen by Provider: 03/23/22 17:19 Source: EMS Mode of arrival: EMS Limitations: altered mental status (Dementia) History of Present Illness HPI Narrative: This is a 61-year-old female past medical history significant for recurrent UTIs , dementia presenting to the emergency department for fall with head strike and suspected right hip pain coming from SNF. According to EMS patient was in a recliner, she fell out of the recliner hitting her head, unsure if there was loss of consciousness. The patient was found by staff at long term facility. She is noted to have a small abrasion to her right cheek that is not bleeding. Was placed in a cervical collar. Upon my initial exam she is noted to have a right externally rotated and shortened right lower extremity. Unable to obtain GCS is patient has history of dementia not answering questions appropriately. Unable to obtain NIH stroke scale. Not on blood thinners. Related Data Home Medications Medication Instructions Recorded Confirmed amlodipine 10 mg tablet 1 tab PO QAM 01/03/22 01/11/22 cyanocobalamin (vitamin B-12) 100 1 tab PO QAM 01/03/22 01/11/22 mcg tablet risperidone 0.5 mg tablet 1 tab PO BID 01/03/22 01/11/22 Previous Rx's Medication Instructions Recorded divalproex 250 mg tablet,delayed 250 mg PO BID #60 tabs 01/09/22 release (Depakote) cefuroxime axetil 250 mg tablet 250 mg PO BID 4 days #8 tabs 03/06/22 cefuroxime axetil 250 mg tablet 250 mg PO BID 7 days #14 tabs 03/06/22 Allergies Allergy/AdvReac Type Severity Reaction Status Date / Time aspirin [ASA] Allergy Intermediate HIVES Verified 01/19/22 09:04 penicillin G Allergy Unknown rash Verified 04/01/19 00:00 penicillin V Allergy Unknown rash Verified 11/10/14 00:00 Penicillins Allergy Unknown RASH Verified 01/19/22 09:04 Review of Systems Review of Systems: Yes Unobtainable due to mental status PMFSH Past Medical History Attestation statement: The following information was validated with the patient. Source: old records reviewed and nursing notes reviewed Social History Social History Alcohol intake: former Advance Directives: Yes Advance Directives on File: Yes Advance Directives Date on File: 01/03/22 Physical Exam Vital Signs: Vital Signs: Last Vital Signs Temp 98.6 F 03/23/22 17:48 Pulse 56 03/24/22 00:10 Resp 16 03/24/22 00:10 BP 133/63 03/24/22 00:10 Pulse Ox 99 03/24/22 00:10 O2 Del Method 03/24/22 00:10 BMI result Body Mass Index 27.5 Vital signs stable Appearance: Alert.? Awake. No acute distress.? Head: Normocephalic, atraumatic, no step-offs or deformities Eyes: Pupils equal, round and reactive to light.? Patient moving eyes in all directions no signs of entrapment. ENT: Pharynx normal.? Neck: Normal inspection.? Neck supple.? CVS: Normal heart rate and rhythm.? Pulses normal.? Respiratory: No respiratory distress.? Breath sounds normal.? Abdomen: Soft and nontender.? Skin: Skin warm and dry.? Normal skin color.? Normal skin turgor.?+small abrasion to right wrist. Extremities: No lower extremity edema.? No calf ttp. Global weakness. Right lower extremity is noted to be externally rotated and shortened. Some redness and tenderness overlying the right hip. Neuro: Patient awake, moving all extremities, appears comfortable and in no acute distress. Due to dementia unable to obtain an accurate neurological exam, patient not following commands. Course Reevaluation(s) Reevaluation #1: Patient's CBC appears to be around her baseline with leukopenia, thrombocytopenia, chemistry with no acute findings requiring intervention. Coags within normal limits. X-ray of tibia and fibula unremarkable. Unremarkable right femur x-ray. No evidence of acute traumatic injury of the chest, abdomen or pelvis. Or thoracolumbar spine. Partially healed fractures of the lateral aspect of right 7th and 10th ribs, no point tenderness on exam there are likely old fractures. Moderate bilateral hydronephrosis and hydroureter. No demonstrated stone. Distention of the rectum with mild perirectal fat stranding likely stercoral colitis. Moderate stool burden. Abdomen is not tender on exam. There is a depressed fracture of the right zygomatic arch with surrounding soft tissue edema and hematoma, no signs of optic nerve entrapment patient moving eyes in all directions, there is a small abrasion overlying the right zygomatic area, patient complaining of pain. She has been given fentanyl for pain. Patient now developing ecchymosis overlying the right hip however now moving right lower extremity without difficulties. Normal right hip x-ray I did have my patient evaluated by my attending Dr. Conrad who looked at ct scans will have her follow up with PCP who should refer her to maxillofacial. Patient shold be DC to SNF. My attending agrees with dx and tx plan. No signs of pelvic or hip fx. At this time patient will be discharged to long term facility, advised to return with new or worsening symptoms. Educated on worrisome signs and symptoms and when to return. At this time I feel comfortable discharge home. Time: 00:42 Medications Administered Discontinued Medications Generic Name Dose Route Start Last Admin Trade Name Saeed PRN Reason Stop Dose Admin Fentanyl 25 mcg 03/23/22 17:38 03/23/22 18:12 Fentanyl Citrate/Pf 100 Mcg/2 Ml Vial IVPUSH 03/23/22 17:39 25 mcg ONCE ONE Administration Protocol Fentanyl 25 mcg 03/23/22 20:25 03/23/22 20:30 Fentanyl Citrate/Pf 100 Mcg/2 Ml Vial IVPUSH 03/23/22 20:26 25 mcg ONCE ONE Administration Protocol Iohexol 100 ml 03/23/22 19:25 03/23/22 19:26 Iohexol 350 Mg/Ml 100 Ml Infus..Btl IV 03/23/22 19:26 85 ml ONCE ONE Administration Lorazepam 1 mg 03/23/22 17:25 03/23/22 17:30 Lorazepam 1 Mg Tablet PO 03/23/22 17:26 1 mg ONCE ONE Administration Medical Decision Making Medical Decision Making [facility] Narrative: 1721 61-year-old female presents from long term facility status post unwitnessed fall with head strike. Also concerns for possible right hip fracture dislocation. On exam global weakness is noted, patient altered at baseline, unable to follow commands unable to obtain an accurate neurological exam. Right lower extremity is noted to be externally rotated and shortened. 2+ popliteal pulses, dorsalis pedis, anterior tibialis and posterior tibialis pulses equal bilateral. Regular rate and rhythm. Lungs clear. Abdomen soft nontender nondistended. Will rule out traumatic injuries including intracranial hemorrhage, fractures, dislocations particularly of the hip. Will also rule out internal bleeding. Plan at this time labs, imaging, urine. Patient very anxious, unable to stay' still, worried about her falling again. Will give small amount of Ativan. Lab Data Result Diagrams: 03/23/22 18:08 03/23/22 18:08 Labs: Lab Results 03/23/22 03/23/22 03/23/22 Range/Units 18:08 18:08 18:08 WBC 2.8 L (4.8-10.8) X10*3/uL RBC 4.16 L (4.20-5.50) X10*6/uL Hgb 13.4 (12.0-16.0) g/dl Hct 39.2 (37.0-47.0) % MCV 94.2 (80.0-98.0) fL MCH 32.2 (27.0-33.0) pg MCHC 34.2 (31.0-35.0) g/dl RDW 12.3 (11.0-16.0) % Plt Count 149 L (160-400) X10*3/uL MPV 9.3 L (9.4-12.3) fL Immature Gran % (Auto) 0.7 H (0.0-0.4) % Neut % (Auto) 60.8 (45-73) % Lymph % (Auto) 25.5 (20-40) % Dickens % (Auto) 11.6 H (2-11) % Eos % (Auto) 0.7 (0-4) % Baso % (Auto) 0.7 (0-2) % Lymph # (Auto) 0.7 L (1.2-4.9) X10*3/uL Dickens # (Auto) 0.3 (0.1-1.2) X10*3/uL Eos # (Auto) 0.0 (0.0-0.4) X10*3/uL Baso # (Auto) 0.0 (0.0-0.2) X10*3/uL Abs Immat Gran (auto) 0.02 (0.00-0.03) X10*3/uL Absolute Neuts (auto) 1.7 L (2.0-8.3) x10*3/uL Absolute Nucleated RBC 0.000 (0.0-0.012) X10*3/uL Nucleated RBC % (auto) 0.0 (0.0-0.2) /100WBC PT 12.4 (10.0-13.1) SEC INR 1.1 (0.9-1.1) Sodium 141 (135-145) mmol/L Potassium 4.0 (3.3-5.1) mmol/L Chloride 105 (96-108) mmol/L Carbon Dioxide 31 H (22-29) mmol/L Anion Gap 9 L (12-20) BUN 18 H (9-16) mg/dL Creatinine 0.65 (0.5-1.4) mg/dL Estim Creat Clear Calc 91.0 Estimated GFR > 60 Random Glucose 109 (60-115) mg/dL Calcium 10.2 (8.4-10.2) mg/dL Magnesium 1.8 (1.6-2.6) mg/dL Total Bilirubin 0.4 (0.0-1.0) mg/dL AST 17 (5-31) U/L ALT 19 (0-31) U/L Alkaline Phosphatase 77 (39-117) U/L Total Protein 6.4 L (6.5-8.0) g/dL Albumin 3.8 (3.5-5.0) g/dL Critical Care Time Critical Care Time Critical Care Time: No Discharge Plan Discharge Clinical Impression: Fall, Zygomatic fracture, Physical deconditioning Patient Disposition: er SNF Instructions: Fall Prevention (ED), Fall Prevention for Older Adults (ED), Facial Fracture (ED) Additional Instructions: Take your medications as prescribed. If you were prescribed antibiotics today, it is important that you take your medication to their entirety, do not skip any doses, do not finish them early. Follow-up with your primary care provider this week. Return to the emergency department with new or worsening symptoms. Such as fevers, chills, chest pain, shortness of breath, nausea, vomiting, dizziness, headache, vision changes, lethargy In case of emergency call 911 Patient would benefit from seeing oral maxillofacial specialist. You can call [facility] [phone] for more info on appointments. Prescriptions: No Action cyanocobalamin (vitamin B-12) 100 mcg tablet 1 tab PO QAM amlodipine 10 mg tablet 1 tab PO QAM risperidone 0.5 mg tablet 1 tab PO BID divalproex [Depakote] 250 mg tablet,delayed release (DR/EC) 250 mg PO BID Qty: 60 0RF cefuroxime axetil 250 mg tablet 250 mg PO BID 7 Days Qty: 14 0RF cefuroxime axetil 250 mg tablet 250 mg PO BID 4 Days Qty: 8 0RF Referrals: [facility] [Primary Care Provider] - 2 days
[2022-03-23] MEDS: LORazepam 1 MG TABLET PO (17:30)
[2022-03-23 17:48] VITALS: BP 129/79; BP 136/60; PULSE 89; PULSE 92; RESP 16; TEMP 37; O2SAT 98; BMI 27.5
[2022-03-23] MEDS: fentaNYL citrate/PF 100 MCG/2 ML VIAL 25 MCG IVPUSH ×2 (18:12→20:30)
[2022-03-23 18:16] LABS: MANUAL DIFF FLAG NO
[2022-03-23 18:19] LABS: Basophils Percent Auto 0.7 % (0-2); Eosinophils Percent Auto 0.7 % (0-4); Hematocrit 39.2 % (37.0-47.0); Hemoglobin 13.4 g/dl (12.0-16.0); Imm Gran Abs Auto 0.02 X10*3/uL (0.00-0.03); Imm Gran Pct Auto 0.7 % (0.0-0.4); Lymphocytes Absolute Auto 0.7 X10*3/uL (1.2-4.9); Lymphocytes Percent Auto 25.5 % (20-40); Mean Corpuscular HGB Conc 34.2 g/dl (31.0-35.0); Mean Corpuscular Hemoglobin 32.2 pg (27.0-33.0); Mean Corpuscular Volume 94.2 fL (80.0-98.0); Mean Platelet Volume 9.3 fL (9.4-12.3); Monocytes Absolute Auto 0.3 X10*3/uL (0.1-1.2); Monocytes Percent Auto 11.6 % (2-11); Neutrophils Absolute Auto 1.7 x10*3/uL (2.0-8.3); Neutrophils Percent Auto 60.8 % (45-73); Platelet Count 149 X10*3/uL (160-400); Red Blood Count 4.16 X10*6/uL (4.20-5.50); Red Cell Distribution Width 12.3 % (11.0-16.0); White Blood Count 2.8 X10*3/uL (4.8-10.8)
[2022-03-23 18:22] LABS: INTERNATIONAL NORM RATIO 1.1 (0.9-1.1); Prothrombin Time 12.4 SEC (10.0-13.1)
[2022-03-23 18:36] LABS: Alanine Aminotransferase 19 U/L (0-31); Albumin Level 3.8 g/dL (3.5-5.0); Alkaline Phosphatase 77 U/L (39-117); Anion Gap 9 (12-20); Aspartate Amino Transferase 17 U/L (5-31); Bilirubin Total 0.4 mg/dL (0.0-1.0); Blood Urea Nitrogen 18 mg/dL (9-16); Calcium 10.2 mg/dL (8.4-10.2); Carbon Dioxide 31 mmol/L (22-29); Chloride 105 mmol/L (96-108); Estimated Glomerular Filt Rate > 60; Glucose Random 109 mg/dL (60-115); Magnesium 1.8 mg/dL (1.6-2.6); Sodium 141 mmol/L (135-145); Total Protein 6.4 g/dL (6.5-8.0)
[2022-03-23] MEDS: iohexoL 350 MG/ML 100 ML INFUS..BTL IV (19:26)
[2022-03-23 20:25] VITALS: BP 129/79; PULSE 86; RESP 16; O2SAT 98
[2022-03-23 20:30] VITALS: RESP 16
[2022-03-24 00:10] VITALS: BP 133/63; PULSE 56; RESP 16; O2SAT 99
[2022-03-24] MEDS: fentaNYL citrate/PF 100 MCG/2 ML VIAL 25 MCG IVPUSH (00:55)
[2022-03-24 01:36] LABS: Appearance Urine Clear; Color Urine Yellow; Glucose Urine UA Negative (Negative); Leukocyte Esterase Urine Negative (Negative); Nitrite Urine Positive (Negative); UMIC TRIGGER UACC YES; Urine Blood Negative (Negative); Urine Ketones Negative (Negative); Urine Protein Negative (Neg-Trace)
[2022-03-24 01:41] LABS: Bacteria Urine 4+ (None Seen); Hyaline Casts Urine 0-2 /LPF (0-2); RBC Urine 0-2 /HPF (0-2); Squamous Epithelial Cell Urine 0-2 /HPF (0-2); UACC Culture Trigger YES; WBC Urine 0-5 /HPF (0-5)
[2022-03-24 01:47] VITALS: PULSE 55; RESP 14; O2SAT 98
--- NOTE | 2022-03-24 02:37 | PC.NURSE ---
Called [facility] spoke to Nurse Azucena. Per Dr. Bernardo, Azucena was advised she may administer Tylenol for pain. Rn confirmed orders with provider.
== END 2022-03-24 02:41 | disposition skilled nursing facility (03) ==
PROVIDERS: Physician Assistant; Emergency Provider Internal Medicine
DX: S02.402A Zygomatic fracture, unspecified side, initial encounter for closed fracture (principal); M25.551 Pain in right hip; M79.605 Pain in left leg; M54.6 Pain in thoracic spine; M54.2 Cervicalgia; R51.9 Headache, unspecified; M79.604 Pain in right leg; W01.10XA Fall on same level from slipping, tripping and stumbling with subsequent striking against unspecified object, initial encounter; Y93.9 Activity, unspecified; Y92.9 Unspecified place or not applicable; Y99.9 Unspecified external cause status; Z79.899 Other long term (current) drug therapy
CPT/HCPCS: 36415; 70450; 71260; 72125; 73501; 73552; 73590; 74177; 80053; 81001; 83735; 85025; 85610; 87086; 87088; 87186; 96374; 96376; 99283; 99284; J3010; Q9967